=== PATIENT | female | born 1980 | race African-American/Black ===

== ENCOUNTER 2020-10-18 11:06 | Outpatient (REF) | payer OTHER, SELFPAY ==
[2020-10-18 11:42] LABS: MANUAL DIFF FLAG NO
[2020-10-18 11:48] LABS: Basophils Percent Auto 0.3 % (0-2); Eosinophils Percent Auto 0.4 % (0-4); Hematocrit 42.6 % (37-47); Imm Gran Abs Auto 0.02 X10*3/uL (0.00-0.03); Imm Gran Pct Auto 0.3 % (0.0-0.4); Lymphocytes Absolute Auto 1.8 X10*3/uL (1.2-4.9); Mean Corpuscular HGB Conc 32.9 g/dl (31.0-35.0); Mean Corpuscular Hemoglobin 29.7 pg (27.0-33.0); Mean Corpuscular Volume 90.4 fL (80-98); Mean Platelet Volume 9.8 fL (9.4-12.3); Monocytes Absolute Auto 0.4 X10*3/uL (0.1-1.2); Neutrophils Absolute Auto 4.5 X10*3/uL (2.0-8.3); Platelet Count 262 X10*3/uL (160-400); Red Blood Count 4.71 X10*6/uL (4.20-5.50); Red Cell Distribution Width 13.4 % (11.0-16.0); White Blood Count 6.8 X10*3/uL (4.8-10.8)
[2020-10-18 12:21] LABS: Alanine Aminotransferase 16 U/L (0-31); Albumin Level 4.3 g/dL (3.5-5.0); Alkaline Phosphatase 60 U/L (39-117); Aspartate Amino Transferase 15 U/L (5-31); Bilirubin Total 0.3 mg/dL (0.0-1.0); Blood Urea Nitrogen 17 mg/dL (9-16); Cholesterol 224 mg/dL; Estimated Glomerular Filt Rate > 60; Glucose Fasting 99 mg/dL (60-99); HDL Cholesterol 47 mg/dL; LDL Cholesterol Calculated 161 mg/dl; Total Protein 6.9 g/dL (6.5-8.0); Triglycerides 81 mg/dL
[2020-10-18 12:33] LABS: Anion Gap 13 (12-20); Carbon Dioxide 22 mmol/L (22-29); Chloride 107 mmol/L (96-108); Potassium 4.5 mmol/L (3.3-5.1); Sodium 137 mmol/L (135-145)
[2020-10-18 12:41] LABS: TSH reflex Free T4 0.43 uIU/mL (0.32-4.0)
[2020-10-19 04:27] LABS: SARS COV2 IgG Positive (Negative)
[2020-10-21 11:12] LABS: Vitamin D 25-OH, D2 <4 ng/mL; Vitamin D 25-OH, D3 47 ng/mL; Vitamin D 25-OH, Total 47 ng/mL (30-100)
== END 2020-10-18 11:07 | disposition home or self-care (01) ==
LOC: HO.LAB 11:06
PROVIDERS: PCP Internal Medicine; Visit Provider Internal Medicine
DX: R00.0 Tachycardia, unspecified (principal); E66.9 Obesity, unspecified; E78.5 Hyperlipidemia, unspecified; Z01.84 Encounter for antibody response examination; E04.9 Nontoxic goiter, unspecified; E55.9 Vitamin D deficiency, unspecified
CPT/HCPCS: 36415; 80053; 80061; 82306; 84443; 85025; 86769

== ENCOUNTER → 2021-01-05 15:14 | Outpatient (BNVA) | payer OTHER, SELFPAY | PROVIDERS: PCP Internal Medicine; Visit Provider Advanced Practice Midwife ==

== ENCOUNTER 2021-02-16 14:02 | Outpatient (REF) | payer OTHER, SELFPAY ==
--- NOTE | ~2021-02-16 | MM_ITS ---
EXAMINATION: MM SCREENING DIGITAL BREAST TOMOSYNTHESIS, BILATERAL CLINICAL INFORMATION: Screening. Asymptomatic. Age 40. No prior breast imaging. No known family history breast cancer. The lifetime risk of breast cancer based on the Tyrer-Cuzick Model is 9%. COMPARISON: None (current study represents initial baseline exam). TECHNIQUE: Digital breast tomosynthesis is performed in both the craniocaudal and mediolateral oblique views along with computer-aided detection (CAD). Synthesized 2D images are generated from the tomosynthesis. Additional right MLO view is provided. FINDINGS: There are scattered areas of fibroglandular density (ACR BI-RADS breast composition Category b). The left breast is unremarkable. There is no significant mass or architectural abnormality. Neither breast shows abnormal calcifications. The axilla and skin contours are unremarkable. Right breast has focal nodular asymmetry mid 3:00 position measuring under 1 cm. Margins are incompletely defined and there may be central lucency. Findings may represent superimposed fibroglandular density or perhaps an intramammary node. Patient will be recalled for additional imaging to fully characterize initial baseline appearance. MM/MM tomosynthesis screening BI IMPRESSION: 1. Right: Focal nodular asymmetric density mid 3:00 position. 2. Left: No mammographic evidence of malignancy. ASSESSMENT: BI-RADS 0: Incomplete - Need Additional Imaging Evaluation RECOMMENDATION: 1. Additional views of the right breast (3-D spot CC, 3-D spot LM). 2. Targeted ultrasound if warranted after review of the additional views. 3. Radiology department staff will contact the patient for additional imaging. This patient's information was entered into a reminder system with a target due date for their next mammogram.
== END 2021-02-16 14:03 | disposition home or self-care (01) ==
LOC: HO.MAMMO 14:02
PROVIDERS: Visit Provider Internal Medicine
DX: Z12.31 Encounter for screening mammogram for malignant neoplasm of breast (principal)
CPT/HCPCS: 77063; 77067

== ENCOUNTER 2021-02-22 08:19 | Outpatient (REF) | payer OTHER, SELFPAY ==
--- NOTE | ~2021-02-22 | MM_ITS ---
EXAMINATION: MM DIAGNOSTIC DIGITAL BREAST TOMOSYNTHESIS, RIGHT US DIAGNOSTIC ULTRASOUND BREAST, RIGHT CLINICAL INFORMATION: Recall from baseline exam for asymmetric focal nodular density mid 3:00 right breast. TC score 9%. COMPARISON: Mammography: 02/16/2021 (baseline) TECHNIQUE: Digital breast tomosynthesis is performed. 2D images are generated from the tomosynthesis. The following views are obtained: 3-D spot CC, 3-D spot LM. Ultrasound right breast is targeted to the inner quadrant. Grayscale imaging and color Doppler are performed without and with harmonics. FINDINGS: There are scattered areas of fibroglandular density (ACR BI-RADS breast composition Category b). The additional views demonstrate subtle grouped nodular asymmetry 3:00 position approximately 5 cm from nipple. Largest nodularity is 5 x 6 mm with a benign coarse peripheral calcification. Ultrasound demonstrates grouping of anechoic foci 3:00 position anterior depth with largest nodule measuring 5 x 6 mm with a specular echo at the margin corresponding to the coarse calcification on mammography. There is no increased or decreased through transmission of sound. No solid mass or architectural abnormality. No associated calcification. Results are discussed with the patient at time of visit. The finding medial right breast likely represents focal fibrocystic changes of unknown chronicity. Patient will be reassessed again in 6 months. MM/MM tomosynthesis added views R IMPRESSION: Focal grouped fibrocystic changes medial right breast. No increased or decreased through transmission of sound or associated color flow. ASSESSMENT: BI-RADS 3: Probably Benign RECOMMENDATION: Diagnostic right mammography and targeted right breast ultrasound in 6 months. This patient's information was entered into a reminder system with a target due date for their next mammogram.
== END 2021-02-22 08:20 | disposition home or self-care (01) ==
LOC: HO.MAMMO 08:19
PROVIDERS: PCP Internal Medicine; Visit Provider Internal Medicine
DX: N64.89 Other specified disorders of breast (principal); R00.0 Tachycardia, unspecified
CPT/HCPCS: 76642; 77061; 77065

== ENCOUNTER 2021-02-26 19:18 | Inpatient (IN) | payer OTHER, SELFPAY ==
--- NOTE | ~2021-02-26 | CT_ITS ---
EXAMINATION: CT ANGIOGRAM OF THE CHEST WITH AND WITHOUT CONTRAST (CT PULMONARY ANGIOGRAM FOR PE) CLINICAL INFORMATION: Reason for Exam positiv eddimer; Tachy; COMPARISON: Chest x-ray 02/26/2021 TECHNIQUE: Prior to contrast administration, noncontrast localization images were obtained. Subsequently, multidetector volumetric imaging was performed from the thoracic inlet to below the diaphragms following the administration of 65 mL Omnipaque 350 intravenous contrast. No contrast reaction reported Sagittal, coronal, and MIP oblique sagittal reformatted images were obtained on the CT workstation, uploaded to PACS, and reviewed. This CT examination was performed using dose optimization techniques as appropriate, variously including the following: *Automated exposure control *Adjustment of mA and/or kV according to patient size (this includes techniques or standardized protocols for targeted exams where dose is matched to indication/reason for exam; i.e. extremities or head) *Use of iterative reconstruction technique Total exam dose-length product 156 mGy-cm FINDINGS: QUALITY OF STUDY/CONTRAST BOLUS: Satisfactory. PULMONARY ARTERIES: No central or segmental pulmonary emboli. The main pulmonary artery appears dilated to approximately 3.4 cm. LUNG: There is nearly diffuse groundglass opacification of the lungs. Areas of interlobular septal thickening are noted. Bronchial wall thickening is also present. Overall findings favor pulmonary edema. PLEURA: Small right and trace pleural effusions. No pneumothorax. MEDIASTINUM: The visualized thyroid gland is enlarged. No discrete mediastinal lymphadenopathy is seen. There is cardiomegaly without significant pericardial effusion. The aorta is not adequately assessed given the phase of postcontrast imaging appears normal in caliber. CHEST WALL/AXILLA: No axillary or internal mammary lymphadenopathy. OSSEOUS STRUCTURES: Mild scattered endplate osteophytes are noted in the spine. UPPER ABDOMEN: There is reflux of contrast into the IVC and hepatic veins, suggesting elevated right heart pressures. CT/CT angio chest PE protocol IMPRESSION: 1. No pulmonary embolus identified. Dilated main pulmonary artery suggests pulmonary artery hypertension. There is also reflux of contrast into the IVC and hepatic veins which can be seen with elevated right heart pressures. 2. Pulmonary findings suspicious for edema. 3. Cardiomegaly. 4. Small right and trace pleural effusions. 5. Partially visualized enlarged thyroid gland. Correlation with prior follow-up thyroid ultrasound is recommended. VTE: negative
--- NOTE | ~2021-02-26 | XR_ITS ---
EXAMINATION: XR CHEST CLINICAL INFORMATION: Dyspnea. COMPARISON: Most recent chest radiograph dated 03/18/2016. TECHNIQUE: 2 views of the chest were obtained. FINDINGS: Patchy bibasilar airspace opacities, new when compared to the prior examination and concerning for multifocal pneumonia. No pleural effusion or pneumothorax. Stable cardiac mediastinal silhouette. No acute osseous abnormality. XR/XR chest 2V IMPRESSION: Patchy bilateral airspace opacities within the lower lobes, concerning for multifocal pneumonia.
--- NOTE | ~2021-02-26 | XR_ITS ---
EXAMINATION: XR CHEST CLINICAL INFORMATION: Evaluate CHF COMPARISON: Chest 02/26/2021 TECHNIQUE: 2 views of the chest were obtained. FINDINGS: There is cardiomegaly with increased pulmonary vascularity suggesting mild CHF but improved significantly from 02/26/2021. The lungs are hypoexpanded with mild haziness in the right lung base question pleural effusion versus thickening. No gross bony abnormality. XR/XR chest 2V IMPRESSION: Improved CHF on 02/26/2021 with some residual changes still present. There is mild haziness right lung base question effusion versus pleural thickening. No change in cardiomegaly.
[2021-02-26 19:33] VITALS: BP 115/83; PULSE 111; RESP 30; TEMP 36.7; O2SAT 98; BMI 31.6
[2021-02-26 20:41] LABS: MANUAL DIFF FLAG NO
[2021-02-26 20:43] LABS: Basophils Percent Auto 0.4 % (0-2); Eosinophils Absolute Auto 0.1 X10*3/uL (0.0-0.4); Eosinophils Percent Auto 0.6 % (0-4); Hematocrit 37.7 % (37-47); Hemoglobin 12.3 g/dl (12.0-16.0); Imm Gran Abs Auto 0.02 X10*3/uL (0.00-0.03); Imm Gran Pct Auto 0.2 % (0.0-0.4); Lymphocytes Absolute Auto 1.9 X10*3/uL (1.2-4.9); Mean Corpuscular HGB Conc 32.6 g/dl (31.0-35.0); Mean Corpuscular Hemoglobin 30.3 pg (27.0-33.0); Mean Corpuscular Volume 92.9 fL (80-98); Mean Platelet Volume 9.9 fL (9.4-12.3); Monocytes Absolute Auto 0.5 X10*3/uL (0.1-1.2); Monocytes Percent Auto 6.3 % (2-11); Neutrophils Absolute Auto 5.5 X10*3/uL (2.0-8.3); Neutrophils Percent Auto 68.5 % (45-73); Platelet Count 232 X10*3/uL (160-400); Red Blood Count 4.06 X10*6/uL (4.20-5.50); Red Cell Distribution Width 13.6 % (11.0-16.0); White Blood Count 8.1 X10*3/uL (4.8-10.8)
[2021-02-26 21:01] LABS: Alanine Aminotransferase 65 U/L (0-31); Albumin Level 3.9 g/dL (3.5-5.0); Alkaline Phosphatase 82 U/L (39-117); Anion Gap 12 (12-20); Aspartate Amino Transferase 56 U/L (5-31); Bilirubin Total 0.4 mg/dL (0.0-1.0); Blood Urea Nitrogen 14 mg/dL (9-16); Calcium 9.5 mg/dL (8.4-10.2); Carbon Dioxide 24 mmol/L (22-29); Chloride 109 mmol/L (96-108); Creatinine Clr Calc Pharmacy 75.1; Estimated Glomerular Filt Rate 59; Glucose Random 100 mg/dL (60-115); Lipase 19 U/L (8-78); Potassium 4.4 mmol/L (3.3-5.1); Sodium 141 mmol/L (135-145); Total Protein 6.3 g/dL (6.5-8.0)
--- NOTE | 2021-02-26 21:31 | ECG_ITS ---
Test Reason : SOB Blood Pressure : / mmHG Vent. Rate : 123 BPM Atrial Rate : 123 BPM P-R Int : 142 ms QRS Dur : 088 ms QT Int : 328 ms P-R-T Axes : 036 090 061 degrees QTc Int : 469 ms Sinus tachycardia Possible Left atrial enlargement Rightward axis Possible Anterior infarct , age undetermined Abnormal ECG No previous ECGs available Referred By: Yuridia Kwan Electronically Signed By:Kenny Dillard
--- NOTE | 2021-02-26 21:39 | ED_ITS ---
HPI - SOB/Dyspnea General Chief Complaint: Dyspnea Stated Complaint: SOB Time Seen by Provider: 02/26/21 22:55 Source: patient Mode of arrival: ambulatory Limitations: language barrier History of Present Illness HPI Narrative: 40-year-old female presents with 7 days of shortness of breath, cough, and fatigue. States that she can not catch her breath, of asthma. She is also reporting abdominal pain and back pain. She does nausea, vomiting, diarrhea, constipation, edema, headaches, dizziness, weakness, and any other concerning symptoms. MD elicited complaint: shortness of breath, chest pain and asthma attack Pertinent past history: asthma Onset (ago): day(s) (Seven) Context: recent illness Timing: constant Severity: severe Exacerbating factors: movement and coughing Relieving factors: nothing Known history of: asthma Associated symptoms: chest pain, pain with inspiration, cough, wheezing and abdominal pain Related Data Home oxygen amount: none Previous Rx's Medication Instructions Recorded inhalational spacing device #1 ea 02/08/21 tizanidine 4 mg tablet 4 mg PO TID PRN 30 Days #90 tab 02/08/21 Allergies Allergy/AdvReac Type Severity Reaction Status Date / Time No Known Allergies Allergy Verified 02/26/21 19:33 Review of Systems Review of Systems: Constitutional: No Fever, No Chills ENT/Mouth: No Hoarseness, No sore throat, No Rhinorrhea Eyes: No Redness, No Discharge, No Vision Changes Cardiovascular: Positive Chest Pain, positive SOB, positive Dyspnea on Exertion, No Edema Respiratory: positive Cough, No Sputum, positive Wheezing, Gastrointestinal: No Nausea, No Vomiting, No Diarrhea, positive abdominal Pain Genitourinary: No Dysuria, No Hematuria Musculoskeletal: No joint pain, No Myalgias Skin: No rash Neuro: No Weakness, No Numbness, No Headache Psych: No anxiety, depression Heme/Lymph: No Bruising, No Bleeding Endocrine: No Polyuria, No Polydipsia Yes all other systems are reviewed and are negative [facility] Past Medical History Attestation statement: The following information was validated with the patient. Source: old records reviewed Medical History (Updated 02/26/21 @ 22:56 by Yuridia Kwan NP) Dyspnea Fibromyalgia Goiter Obese Tachycardia Thyroid nodule Surgical History H/O abdominoplasty History of endometrial ablation Hx of tubal ligation S/P thyroid biopsy Family History Family History Father No problems noted. Mother No problems noted. Social History Social History Housing: House Alcohol intake: current Alcohol intake frequency: a few times a month Patient Tobacco Use Status: Never used Tobacco Use of substances other than those prescribed or required for medical reasons: No Advance Directives: No Advance Directives Information Provided: No Current occupational status: employed Gender identity: female Physical Exam Vital Signs: Vital Signs: Last Vital Signs Temp 97.7 F 02/27/21 00:18 Pulse 111 H 02/27/21 00:29 Resp 24 H 02/27/21 00:29 BP 119/80 02/27/21 00:29 Pulse Ox 96 02/27/21 00:29 Body Mass Index 31.6 Appearance: Alert. Oriented X3. Moderate distress. Eyes: Pupils equal, round and reactive to light. ENT: Pharynx normal. Moist mucous membranes Neck: Normal inspection. Neck supple. CVS: Tachycardic heart rate and rhythm. Pulses equal with brisk capillary refill. Respiratory: Moderate respiratory distress. Tachypneic. Lung sounds coarse bilaterally with poor air flow. Abdomen: Soft and nontender. Skin: Skin warm and dry. Normal skin color. Normal skin turgor. Extremities: No lower extremity edema. Moves all extremities against resistance. Neuro: No motor deficit. No sensory deficit. Cranial nerves 2-12 intact. Course Course Course Narrative: 40-year-old female presents with upper respiratory symptoms for approximately 7 days. X-ray was completed while she was in the emergency department waiting room, indicates bilateral patchy opacities consistent with suspected COVID-19 viral infection. Labs are pending. 9:00 p.m. x-ray that is consistent with COVID-19 virus with bilateral patchy infiltrates, however COVID testing is negative. This is highly suspicious for a viral illness, patient does have history of tachycardia, elevated heart rate and shortness of breath likely due to a viral symptoms. this is not sepsis. 12:05 a.m. discussion with hospitalist, could possibly be atypical pneumonia as procalcitonin is negative. LDH and CRP are elevated, no elevated white count, I still do not believe that this is a bacterial sepsis. MDM - SOB/Dyspnea Differential Diagnosis Differential diagnosis: Likely acute exacerbation of chronic obstructive airways disease, pneumonia and asthma with exacerbation Medical Records Attestation: I reviewed the patient's medical records. Lab Data Attestation: I reviewed the patient's lab results. Result diagrams: 02/26/21 20:37 02/26/21 20:37 Labs: Lab Results 02/26/21 02/26/21 02/26/21 Range/Units 20:37 20:37 22:09 WBC 8.1 (4.8-10.8) X10*3/uL RBC 4.06 L (4.20-5.50) X10*6/uL Hgb 12.3 (12.0-16.0) g/dl Hct 37.7 (37-47) % MCV 92.9 (80-98) fL MCH 30.3 (27.0-33.0) pg MCHC 32.6 (31.0-35.0) g/dl RDW 13.6 (11.0-16.0) % Plt Count 232 (160-400) X10*3/uL MPV 9.9 (9.4-12.3) fL Immature Gran % (Auto) 0.2 (0.0-0.4) % Neut % (Auto) 68.5 (45-73) % Lymph % (Auto) 24.0 (20-40) % [place] % (Auto) 6.3 (2-11) % Eos % (Auto) 0.6 (0-4) % Baso % (Auto) 0.4 (0-2) % Lymph # (Auto) 1.9 (1.2-4.9) X10*3/uL [place] # (Auto) 0.5 (0.1-1.2) X10*3/uL Eos # (Auto) 0.1 (0.0-0.4) X10*3/uL Baso # (Auto) 0.0 (0.0-0.2) X10*3/uL Abs Immat Gran (auto) 0.02 (0.00-0.03) X10*3/uL Absolute Neuts (auto) 5.5 (2.0-8.3) X10*3/uL Absolute Nucleated RBC 0.000 (0.0-0.012) X10*3/uL Nucleated RBC % (auto) 0.0 (0.0-0.2) /100WBC Sodium 141 (135-145) mmol/L Potassium 4.4 (3.3-5.1) mmol/L Chloride 109 H (96-108) mmol/L Carbon Dioxide 24 (22-29) mmol/L Anion Gap 12 (12-20) BUN 14 (9-16) mg/dL Creatinine 1.04 (0.5-1.4) mg/dL Estim Creat Clear Calc 75.1 Estimated GFR 59 Random Glucose 100 (60-115) mg/dL Lactic Acid (0.5-2.0) mmol/L Calcium 9.5 (8.4-10.2) mg/dL Ferritin (10-250) ng/mL Total Bilirubin 0.4 (0.0-1.0) mg/dL AST 56 H (5-31) U/L ALT 65 H (0-31) U/L Alkaline Phosphatase 82 D (39-117) U/L Lactate Dehydrogenase (122-220) U/L Total Creatine Kinase (26-140) U/L Troponin I High Sens (<3.5-17.0) ng/L C-Reactive Protein (< or = 0.50) mg/dL Total Protein 6.3 L (6.5-8.0) g/dL Albumin 3.9 (3.5-5.0) g/dL Lipase 19 (8-78) U/L Procalcitonin ng/mL Coronavirus (PCR) NEGATIVE (Negative) Influenza Type A (PCR) NEGATIVE (Negative) Influenza Type B (PCR) NEGATIVE (Negative) RSV RNA Qual (PCR) NEGATIVE (Negative) 02/26/21 02/26/21 02/26/21 Range/Units 22:09 22:09 22:09 WBC (4.8-10.8) X10*3/uL RBC (4.20-5.50) X10*6/uL Hgb (12.0-16.0) g/dl Hct (37-47) % MCV (80-98) fL MCH (27.0-33.0) pg MCHC (31.0-35.0) g/dl RDW (11.0-16.0) % Plt Count (160-400) X10*3/uL MPV (9.4-12.3) fL Immature Gran % (Auto) (0.0-0.4) % Neut % (Auto) (45-73) % Lymph % (Auto) (20-40) % [place] % (Auto) (2-11) % Eos % (Auto) (0-4) % Baso % (Auto) (0-2) % Lymph # (Auto) (1.2-4.9) X10*3/uL [place] # (Auto) (0.1-1.2) X10*3/uL Eos # (Auto) (0.0-0.4) X10*3/uL Baso # (Auto) (0.0-0.2) X10*3/uL Abs Immat Gran (auto) (0.00-0.03) X10*3/uL Absolute Neuts (auto) (2.0-8.3) X10*3/uL Absolute Nucleated RBC (0.0-0.012) X10*3/uL Nucleated RBC % (auto) (0.0-0.2) /100WBC Sodium (135-145) mmol/L Potassium (3.3-5.1) mmol/L Chloride (96-108) mmol/L Carbon Dioxide (22-29) mmol/L Anion Gap (12-20) BUN (9-16) mg/dL Creatinine (0.5-1.4) mg/dL Estim Creat Clear Calc Estimated GFR Random Glucose (60-115) mg/dL Lactic Acid 1.5 (0.5-2.0) mmol/L Calcium (8.4-10.2) mg/dL Ferritin 112 (10-250) ng/mL Total Bilirubin (0.0-1.0) mg/dL AST (5-31) U/L ALT (0-31) U/L Alkaline Phosphatase (39-117) U/L Lactate Dehydrogenase 229 H (122-220) U/L Total Creatine Kinase 52 (26-140) U/L Troponin I High Sens (<3.5-17.0) ng/L C-Reactive Protein 0.70 H (< or = 0.50) mg/dL Total Protein (6.5-8.0) g/dL Albumin (3.5-5.0) g/dL Lipase (8-78) U/L Procalcitonin 0.04 ng/mL Coronavirus (PCR) (Negative) Influenza Type A (PCR) (Negative) Influenza Type B (PCR) (Negative) RSV RNA Qual (PCR) (Negative) 02/26/21 Range/Units 22:09 WBC (4.8-10.8) X10*3/uL RBC (4.20-5.50) X10*6/uL Hgb (12.0-16.0) g/dl Hct (37-47) % MCV (80-98) fL MCH (27.0-33.0) pg MCHC (31.0-35.0) g/dl RDW (11.0-16.0) % Plt Count (160-400) X10*3/uL MPV (9.4-12.3) fL Immature Gran % (Auto) (0.0-0.4) % Neut % (Auto) (45-73) % Lymph % (Auto) (20-40) % [place] % (Auto) (2-11) % Eos % (Auto) (0-4) % Baso % (Auto) (0-2) % Lymph # (Auto) (1.2-4.9) X10*3/uL [place] # (Auto) (0.1-1.2) X10*3/uL Eos # (Auto) (0.0-0.4) X10*3/uL Baso # (Auto) (0.0-0.2) X10*3/uL Abs Immat Gran (auto) (0.00-0.03) X10*3/uL Absolute Neuts (auto) (2.0-8.3) X10*3/uL Absolute Nucleated RBC (0.0-0.012) X10*3/uL Nucleated RBC % (auto) (0.0-0.2) /100WBC Sodium (135-145) mmol/L Potassium (3.3-5.1) mmol/L Chloride (96-108) mmol/L Carbon Dioxide (22-29) mmol/L Anion Gap (12-20) BUN (9-16) mg/dL Creatinine (0.5-1.4) mg/dL Estim Creat Clear Calc Estimated GFR Random Glucose (60-115) mg/dL Lactic Acid (0.5-2.0) mmol/L Calcium (8.4-10.2) mg/dL Ferritin (10-250) ng/mL Total Bilirubin (0.0-1.0) mg/dL AST (5-31) U/L ALT (0-31) U/L Alkaline Phosphatase (39-117) U/L Lactate Dehydrogenase (122-220) U/L Total Creatine Kinase (26-140) U/L Troponin I High Sens 20.3 H* (<3.5-17.0) ng/L C-Reactive Protein (< or = 0.50) mg/dL Total Protein (6.5-8.0) g/dL Albumin (3.5-5.0) g/dL Lipase (8-78) U/L Procalcitonin ng/mL Coronavirus (PCR) (Negative) Influenza Type A (PCR) (Negative) Influenza Type B (PCR) (Negative) RSV RNA Qual (PCR) (Negative) Imaging Data Chest x-ray: Attestation: I personally reviewed and interpreted this imaging study as follows: Radiologist's impression: EXAMINATION: XR CHEST CLINICAL INFORMATION: Dyspnea. COMPARISON: Most recent chest radiograph dated 03/18/2016. TECHNIQUE: 2 views of the chest were obtained. FINDINGS: Patchy bibasilar airspace opacities, new when compared to the prior examination and concerning for multifocal pneumonia. No pleural effusion or pneumothorax. Stable cardiac mediastinal silhouette. No acute osseous abnormality. XR/XR chest 2V IMPRESSION: Patchy bilateral airspace opacities within the lower lobes, concerning for multifocal pneumonia. ECG Data Attestation: I personally reviewed and interpreted this ECG as follows: ECG interpretation date: 02/26/21 ECG interpretation time: 21:57 Interpretation: Vent. rate 123 BPM PA interval 142 ms QRS duration 88 ms QT/QTc 328/469 ms P-R-T axes 36 90 61 Sinus tachycardia Possible Left atrial enlargement Rightward axis Possible Anterior infarct , age undetermined Abnormal ECG No previous ECGs available Critical Care Time Critical Care Time Critical Care Time: Yes Total Critical Care Time: 45 Attestation: I have personally provided critical care time exclusive of time spent on separately billable procedures. Time includes review of laboratory data, radiology results, discussion with consultants, and monitoring for potential decompensation. Interventions were performed as documented. Discharge Plan Discharge Clinical Impression: Hypoxia Pneumonia Qualifiers: Pneumonia type: due to unspecified organism Laterality: bilateral Lung location: unspecified part of lung Qualified Code(s): J18.9 - Pneumonia, unspecified organism Patient Disposition: Admitted As Inpatient
[2021-02-26 21:49] VITALS: BP 110/79; PULSE 119; RESP 28; TEMP 36.7; O2SAT 97
[2021-02-26] MEDS: dexAMETHasone sod phosphate 4 MG/ML VIAL 6 MG IVPUSH (22:14)
[2021-02-26 22:45] LABS: Lactic Acid 1.5 mmol/L (0.5-2.0)
[2021-02-26 22:49] LABS: Lactate Dehydrogenase 229 U/L (122-220)
[2021-02-26 22:57] VITALS: BP 124/93; PULSE 114; RESP 34; O2SAT 96
[2021-02-26 23:00] LABS: Troponin-I High Sensitivity 20.3 ng/L (<3.5-17.0)
[2021-02-26 23:08] LABS: Procalcitonin 0.04 ng/mL
[2021-02-26 23:09] LABS: Ferritin 112 ng/mL (10-250)
[2021-02-26 23:11] LABS: Influenza A PCR NEGATIVE (Negative); Influenza B PCR NEGATIVE (Negative); Resp Syncy Virus RNA Qual PCR NEGATIVE (Negative); SARS COV2 PCR INHOUSE NEGATIVE (Negative)
[2021-02-27] VITALS (7 sets, daily range): BP systolic 75–127; BP diastolic 63–88; PULSE 105–124; RESP 15–33; TEMP 36.5–37; O2SAT 92–98; BMI 31.8
[2021-02-27] MEDS: cefTRIAXone sodium 1 GM in 0.9 % Sodium Chloride 50 ML IV ×2 (00:19→22:18)
[2021-02-27] MEDS: Azithromycin 500 MG TABLET PO (00:19)
[2021-02-27 00:39] LABS: Glucose Urine UA NEG (NEG); Leukocyte Esterase Urine NEG (NEG); Nitrite Urine NEG (NEG); Specific Gravity - Urine >= 1.030 (1.005-1.025); Urine Blood 2+ (NEG); Urine Ketones NEG (NEG); Urine Protein TRACE MG/DL (NEG-TRACE)
[2021-02-27 00:41] LABS: Appearance Urine CLEAR; Color Urine DARK YELLOW
[2021-02-27] MEDS: Heparin Sodium,Porcine 5,000 UNIT/ML VIAL 5000 UNIT SUBCUT ×2 (00:57→13:10)
[2021-02-27 01:05] LABS: Bacteria Urine TRACE /LPF; RBC Urine 0-2 /HPF (0); Squamous Epithelial Cell Urine 3+ /LPF; WBC Urine 0-2 /HPF (0-4)
[2021-02-27 01:06] LABS: UPreg QC Valid YES; Urine Pregnancy NEGATIVE (NEGATIVE)
[2021-02-27 01:06] LABS: Mucus Urine 2+ /LPF
[2021-02-27 01:30] LABS: Troponin-I High Sensitivity 21.3 ng/L (<3.5-17.0)
--- NOTE | 2021-02-27 03:47 | PC.NURSE ---
Pt rang in, this RN to bedside, pt requesting a pain patch for her upper back discomfort and requesting something for sleep. This rn TT Lyndsey to request both
[2021-02-27] MEDS: diphenhydrAMINE HCL 50 MG/ML VIAL 25 MG IVPUSH (04:28)
[2021-02-27] MEDS: Lidocaine 4 % Patch ADH..PATCH 1 PATCH TRANSDERMA (05:08)
--- NOTE | 2021-02-27 05:08 | PC.NURSE ---
This RN notes lido patch due at 0900. This RN TT sohan and asked if med patch can be applied at this time. Per Sohan, yes. Pt medicated as documented in MAR
[2021-02-27 06:35] LABS: Hematocrit 39.8 % (37-47); Hemoglobin 12.8 g/dl (12.0-16.0); Imm Gran Abs Auto 0.02 X10*3/uL (0.00-0.03); Imm Gran Pct Auto 0.3 % (0.0-0.4); Lymphocytes Absolute Auto 0.5 X10*3/uL (1.2-4.9); Lymphocytes Percent Auto 7.8 % (20-40); MANUAL DIFF FLAG SCAN; Mean Corpuscular HGB Conc 32.2 g/dl (31.0-35.0); Mean Corpuscular Hemoglobin 29.3 pg (27.0-33.0); Mean Corpuscular Volume 91.1 fL (80-98); Mean Platelet Volume 10.2 fL (9.4-12.3); Monocytes Absolute Auto 0.1 X10*3/uL (0.1-1.2); Monocytes Percent Auto 1.2 % (2-11); Neutrophils Absolute Auto 5.9 X10*3/uL (2.0-8.3); Neutrophils Percent Auto 90.7 % (45-73); Platelet Count 257 X10*3/uL (160-400); Red Blood Count 4.37 X10*6/uL (4.20-5.50); Red Cell Distribution Width 13.4 % (11.0-16.0); SCAN SMEAR FLAG 1; White Blood Count 6.5 X10*3/uL (4.8-10.8)
--- NOTE | 2021-02-27 06:56 | P.HPHOSP_ITS ---
History of Present Illness Date of Service: 02/27/21 Chief Complaint: Shortness of breath 40-year-old female with no significant past medical history who presents to the hospital with complaints of shortness of breath this been going on for 7-10 days. She has some cough with no sputum production, has chills with no fever, no recent sick contacts or travel. She denies any headache or change in vision, no abdominal pain nausea or vomiting, no diarrhea constipation, no urinary symptoms. Denies any history of COPD/asthma. Reports that she got the the 1st dose of pfeizer COVID vaccine 3 days ago. On arrival to the ED patient vitals significant for temp of 98.1?, heart rate of 119, respiratory rate of 28, blood pressure 110/79, satting 97% on room air Labs are significant for normal WBC of 8.1, AST of 56, ALT of 65, troponin of 20.3 that increased to 21.3, UA negative. COVID-19 PCR negative, procalcitonin of 0.04 Chest x-ray shows patchy bilateral airspace opacities within the lower lobes concerning for multi focal pneumonia Patient will be admitted for further management Review of Systems Review of Systems: Yes all other systems are reviewed and are negative [facility] Medical History Dyspnea Fibromyalgia Goiter Obese Tachycardia Thyroid nodule Family History Father No problems noted. Mother No problems noted. Surgical History H/O abdominoplasty History of endometrial ablation Hx of tubal ligation S/P thyroid biopsy Social History Housing: House Alcohol intake: current Alcohol intake frequency: a few times a month Patient Tobacco Use Status: Never used Tobacco Use of substances other than those prescribed or required for medical reasons: No Advance Directives: No Advance Directives Information Provided: No Current occupational status: employed Gender identity: female Meds Allergies Allergy/AdvReac Type Severity Reaction Status Date / Time No Known Allergies Allergy Verified 02/26/21 19:33 Active Medications: Current Medications Generic Name Dose Route Start Last Admin Trade Name Freq PRN Reason Stop Dose Admin Acetaminophen 650 mg 02/27/21 00:28 Acetaminophen 325 Mg Tablet PO Q6H PRN Pain, Mild (Pain Scale 1-3) Dexamethasone Sodium Phosphate 6 mg 02/27/21 09:00 Dexamethasone Sod Phosphate 4 Mg/Ml Vial IVPUSH DAILY [facility] Docusate Sodium 100 mg 02/27/21 00:28 Docusate Sodium 100 Mg Capsule PO DAILY PRN Constipation Heparin Sodium (Porcine) 5,000 unit 02/27/21 00:28 02/27/21 00:57 Heparin Sodium,Porcine 5,000 Unit/Ml Vial SUBCUT 5,000 unit Q12H [facility] Administration Ceftriaxone Sodium 1 gm/ 50 mls @ 100 mls/hr 02/27/21 07:00 Sodium Chloride IV Q24H ARMANDO Azithromycin 500 mg/ Sodium 250 mls @ 125 mls/hr 02/27/21 07:00 Chloride IV Q24H [facility] Lidocaine 1 patch 02/27/21 09:00 02/27/21 05:08 Lidocaine 4 % Patch Adh..Patch TRANSDERMA 1 patch DAILY [facility] Administration Protocol Ondansetron HCl 4 mg 02/27/21 00:28 Ondansetron Hcl 4 Mg/2 Ml Vial IVPUSH Q8H PRN Nausea and Vomiting Sodium Chloride 3 ml 02/27/21 00:28 02/27/21 00:30 0.9 % Sodium Chloride Flush 3 Ml Syringe IVFLUSH Not Given QSHIFT [facility] Tizanidine HCl 4 mg 02/27/21 00:28 Tizanidine Hcl 4 Mg Tablet PO TID PRN muscle spasticity Physical Exam Vital Signs and Narrative: Vital Signs: Last Vital Signs Temp 97.7 F 02/27/21 04:26 Pulse 105 H 02/27/21 04:26 Resp 15 02/27/21 04:26 BP 118/88 02/27/21 04:26 Pulse Ox 97 02/27/21 04:26 Body Mass Index 31.6 Const: General: cooperative and no acute distress Orientation/ consciousness: patient oriented x3 Eyes: General: appearance normal, both eyes and all related structures Pupils: Equal, round and reactive pupils present Resp: Other: Patient tachypneic, sitting up in bed, using some accessory muscles Cardio: Rate: regular rate Rhythm: regular rhythm GI: Palpation (GI): Soft to palpation Auscultation: normal bowel sounds Skin: General skin exam: no rashes or lesions noted Neuro: General: patient oriented x3 Cranial nerves: Yes Equal, round and reactive pupils present Cognition (Neuro): normal cognition Extrem: General: Yes normal to inspection and Yes no pedal edema Results Labs CBC and Chem 7: 02/26/21 20:37 02/26/21 20:37 Labs: Laboratory Results - last 24 hr 02/26/21 02/26/21 02/26/21 20:37 20:37 22:09 WBC 8.1 RBC 4.06 L Hgb 12.3 Hct 37.7 MCV 92.9 MCH 30.3 MCHC 32.6 RDW 13.6 Plt Count 232 MPV 9.9 Immature Gran % (Auto) 0.2 Neut % (Auto) 68.5 Lymph % (Auto) 24.0 [place] % (Auto) 6.3 Eos % (Auto) 0.6 Baso % (Auto) 0.4 Lymph # (Auto) 1.9 [place] # (Auto) 0.5 Eos # (Auto) 0.1 Baso # (Auto) 0.0 Abs Immat Gran (auto) 0.02 Absolute Neuts (auto) 5.5 Absolute Nucleated RBC 0.000 Nucleated RBC % (auto) 0.0 Sodium 141 Potassium 4.4 Chloride 109 H Carbon Dioxide 24 Anion Gap 12 BUN 14 Creatinine 1.04 Estim Creat Clear Calc 75.1 Estimated GFR 59 Random Glucose 100 Lactic Acid Calcium 9.5 Ferritin Total Bilirubin 0.4 AST 56 H ALT 65 H Alkaline Phosphatase 82 D Lactate Dehydrogenase Total Creatine Kinase Troponin I High Sens C-Reactive Protein Total Protein 6.3 L Albumin 3.9 Lipase 19 Procalcitonin Urine Color Urine Appearance Urine pH Ur Specific [place] Urine Protein Urine Glucose (UA) Urine Ketones Urine Blood Urine Nitrite Ur Leukocyte Esterase Urine RBC Urine WBC Ur Squamous Epith Cells Urine Bacteria Urine Mucus Urine Test Coronavirus (PCR) NEGATIVE Influenza Type A (PCR) NEGATIVE Influenza Type B (PCR) NEGATIVE RSV RNA Qual (PCR) NEGATIVE 02/26/21 02/26/21 02/26/21 22:09 22:09 22:09 WBC RBC Hgb Hct MCV MCH MCHC RDW Plt Count MPV Immature Gran % (Auto) Neut % (Auto) Lymph % (Auto) [place] % (Auto) Eos % (Auto) Baso % (Auto) Lymph # (Auto) [place] # (Auto) Eos # (Auto) Baso # (Auto) Abs Immat Gran (auto) Absolute Neuts (auto) Absolute Nucleated RBC Nucleated RBC % (auto) Sodium Potassium Chloride Carbon Dioxide Anion Gap BUN Creatinine Estim Creat Clear Calc Estimated GFR Random Glucose Lactic Acid 1.5 Calcium Ferritin 112 Total Bilirubin AST ALT Alkaline Phosphatase Lactate Dehydrogenase 229 H Total Creatine Kinase 52 Troponin I High Sens C-Reactive Protein 0.70 H Total Protein Albumin Lipase Procalcitonin 0.04 Urine Color Urine Appearance Urine pH Ur Specific [place] Urine Protein Urine Glucose (UA) Urine Ketones Urine Blood Urine Nitrite Ur Leukocyte Esterase Urine RBC Urine WBC Ur Squamous Epith Cells Urine Bacteria Urine Mucus Urine Test Coronavirus (PCR) Influenza Type A (PCR) Influenza Type B (PCR) RSV RNA Qual (PCR) 02/26/21 02/27/21 02/27/21 22:09 00:19 00:20 WBC RBC Hgb Hct MCV MCH MCHC RDW Plt Count MPV Immature Gran % (Auto) Neut % (Auto) Lymph % (Auto) [place] % (Auto) Eos % (Auto) Baso % (Auto) Lymph # (Auto) [place] # (Auto) Eos # (Auto) Baso # (Auto) Abs Immat Gran (auto) Absolute Neuts (auto) Absolute Nucleated RBC Nucleated RBC % (auto) Sodium Potassium Chloride Carbon Dioxide Anion Gap BUN Creatinine Estim Creat Clear Calc Estimated GFR Random Glucose Lactic Acid Calcium Ferritin Total Bilirubin AST ALT Alkaline Phosphatase Lactate Dehydrogenase Total Creatine Kinase Troponin I High Sens 20.3 H* C-Reactive Protein Total Protein Albumin Lipase Procalcitonin Urine Color DARK YELLOW Urine Appearance CLEAR Urine pH 6.0 Ur Specific [place] >= 1.030 H Urine Protein TRACE Urine Glucose (UA) NEG Urine Ketones NEG Urine Blood 2+ H Urine Nitrite NEG Ur Leukocyte Esterase NEG Urine RBC 0-2 Urine WBC 0-2 Ur Squamous Epith Cells 3+ Urine Bacteria TRACE Urine Mucus 2+ Urine Test NEGATIVE Coronavirus (PCR) Influenza Type A (PCR) Influenza Type B (PCR) RSV RNA Qual (PCR) 02/27/21 00:30 WBC RBC Hgb Hct MCV MCH MCHC RDW Plt Count MPV Immature Gran % (Auto) Neut % (Auto) Lymph % (Auto) [place] % (Auto) Eos % (Auto) Baso % (Auto) Lymph # (Auto) [place] # (Auto) Eos # (Auto) Baso # (Auto) Abs Immat Gran (auto) Absolute Neuts (auto) Absolute Nucleated RBC Nucleated RBC % (auto) Sodium Potassium Chloride Carbon Dioxide Anion Gap BUN Creatinine Estim Creat Clear Calc Estimated GFR Random Glucose Lactic Acid Calcium Ferritin Total Bilirubin AST ALT Alkaline Phosphatase Lactate Dehydrogenase Total Creatine Kinase Troponin I High Sens 21.3 H* C-Reactive Protein Total Protein Albumin Lipase Procalcitonin Urine Color Urine Appearance Urine pH Ur Specific [place] Urine Protein Urine Glucose (UA) Urine Ketones Urine Blood Urine Nitrite Ur Leukocyte Esterase Urine RBC Urine WBC Ur Squamous Epith Cells Urine Bacteria Urine Mucus Urine Test Coronavirus (PCR) Influenza Type A (PCR) Influenza Type B (PCR) RSV RNA Qual (PCR) Imaging Radiologist's Impressions: Impressions Chest X-Ray 02/26/21 19:55 IMPRESSION: Patchy bilateral airspace opacities within the lower lobes, concerning for multifocal pneumonia. Assessment and Plan (1) Multifocal pneumonia: Status: Acute (2) Dyspnea: Status: Acute (3) Elevated LFTs: Status: Acute This is a 40-year-old female with no significant past medical history presents to the hospital with complaints of shortness of breath found to have multifocal pneumonia # multifocal pneumonia - although COVID-19 PCR negative, patient has image findings of for all pneumonia concerning for possible COVID-19 infection - received MRN a vaccine 1st dose 3 days prior but her symptoms started a week prior to that - patient not hypoxic but placed on O2 by ED PA for comfort as patient had tachypnea and appears in respiratory distress - received dexamethasone - time will start dexamethasone as patient is not hypoxic - will consult Infectious Disease - will start her on IV fluids given multifocal pneumonia for possible bacterial infection - follow cultures # elevated LFTs - denies use of alcohol - will check hepatitis - follow LFTs prophylaxis: Heparin subQ Quality Stroke Does the patient have a stroke diagnosis?: No VTE Prior VTE?: No VTE Risk Level:: Medical - moderate - high VTE Device Contraindication: Treatment Not Indicated VTE Drug Contraindication: N/A - Med Ordered
[2021-02-27 07:06] LABS: Anion Gap 13 (12-20); Blood Urea Nitrogen 12 mg/dL (9-16); Calcium 9.3 mg/dL (8.4-10.2); Carbon Dioxide 21 mmol/L (22-29); Chloride 110 mmol/L (96-108); Creatinine Clr Calc Pharmacy 88.7; Estimated Glomerular Filt Rate > 60; Glucose Random 139 mg/dL (60-115); Potassium 4.9 mmol/L (3.3-5.1); Sodium 139 mmol/L (135-145)
[2021-02-27] MEDS: Albuterol Sulfate 90 MCG 8 GM INHALER 1 PUFF INHALE (08:21)
--- NOTE | 2021-02-27 08:21 | PC.NURSE ---
pt reports feeling SOB, requesting tx, order for prn albuterol inhaler obtained, pt self admin. Ls cta, slightly dium at bases, no adventitious LS auscultated.
[2021-02-27 08:58] LABS: SLIDE REVIEW VERIFIED
[2021-02-27] MEDS: 0.9 % Sodium Chloride Flush 3 ML SYRINGE IVFLUSH ×3 (09:05→22:35)
[2021-02-27 09:28] LABS: Adenovirus PCR Not Detected (Not Detect.); Bordetella parapertussis PCR Not Detected (Not Detect.); Bordetella pertussis PCR Not Detected (Not Detect.); Chlamydia pneumoniae PCR Not Detected (Not Detect.); Coronavirus 229E PCR Not Detected (Not Detect.); Coronavirus HKU1 PCR Not Detected (Not Detect.); Coronavirus NL63 PCR Not Detected (Not Detect.); Coronavirus OC43 PCR Not Detected (Not Detect.); Human metapneumovirus PCR Not Detected (Not Detect.); Influenza A PCR Not Detected (Not Detect.); Influenza B PCR Not Detected (Not Detect.); Mycoplasma pneumoniae PCR Not Detected (Not Detect.); Parainfluenza 1 PCR Not Detected (Not Detect.); Parainfluenza 2 PCR Not Detected (Not Detect.); Parainfluenza 3 PCR Not Detected (Not Detect.); Parainfluenza 4 PCR Not Detected (Not Detect.); RSV PCR Not Detected (Not Detect.); Rhino/Enterovirus PCR Not Detected (Not Detect.); SARS-CoV-2 PCR Not Detected (Not Detect.)
--- NOTE | 2021-02-27 09:30 | P.PNIM_ITS ---
Subjective Subjective Date of Service: 02/28/21 Interval History: pneumonia , elevated lfts' Review of Systems sob seems improving , denies any chest pain or abdominal pain Has dry cough but no phlegm Denies any nausea or vomiting or any urinary complaints Physical Exam Vital Signs: Vital Signs: Last Vital Signs Temp 97.7 F 02/27/21 04:26 Pulse 105 H 02/27/21 04:26 Resp 15 02/27/21 04:26 BP 118/88 02/27/21 04:26 Pulse Ox 97 02/27/21 04:26 Body Mass Index 31.6 Physical exam: heent: eyes: anicteric , no discharge Cvs: rrr, [id number] , no murmur res: air entry improving , slightly diminshed at bases , no rales or wheezing, some rhonchii abd: no rebound or guarding ,nt, bs present. ext pulses present , no cyanosis neuro: axo3 , nonfocal. Objective Data Current Medications Generic Name Dose Route Start Last Admin Trade Name Freq PRN Reason Stop Dose Admin Acetaminophen 650 mg 02/27/21 00:28 Acetaminophen 325 Mg Tablet PO Q6H PRN Pain, Mild (Pain Scale 1-3) Albuterol Sulfate 1 puff 02/27/21 07:51 02/27/21 08:21 Albuterol Sulfate 90 Mcg 8 Gm Inhaler INHALE 1 puff Q4H PRN Administration sob Docusate Sodium 100 mg 02/27/21 00:28 Docusate Sodium 100 Mg Capsule PO DAILY PRN Constipation Heparin Sodium (Porcine) 5,000 unit 02/27/21 00:28 02/27/21 00:57 Heparin Sodium,Porcine 5,000 Unit/Ml Vial SUBCUT 5,000 unit Q12H ARMANDO Administration Ceftriaxone Sodium 1 gm/ 50 mls @ 100 mls/hr 02/27/21 22:00 Sodium Chloride IV Q24H [facility]ANDO Azithromycin 500 mg/ Sodium 250 mls @ 125 mls/hr 02/27/21 21:00 Chloride IV Q24H [facility]ANDO Lidocaine 1 patch 02/27/21 09:00 02/27/21 05:08 Lidocaine 4 % Patch Adh..Patch TRANSDERMA 1 patch DAILY [facility]O Administration Protocol Ondansetron HCl 4 mg 02/27/21 00:28 Ondansetron Hcl 4 Mg/2 Ml Vial IVPUSH Q8H PRN Nausea and Vomiting Sodium Chloride 3 ml 02/27/21 00:28 02/27/21 09:05 0.9 % Sodium Chloride Flush 3 Ml Syringe IVFLUSH 3 ml QSHIFT [facility]O Administration Tizanidine HCl 4 mg 02/27/21 00:28 Tizanidine Hcl 4 Mg Tablet PO TID PRN muscle spasticity Labs CBC & Chem 7: 02/27/21 06:21 02/27/21 06:21 Labs: Laboratory Results - last 24 hr 02/26/21 02/26/21 02/26/21 20:37 20:37 22:09 WBC 8.1 RBC 4.06 L Hgb 12.3 Hct 37.7 MCV 92.9 MCH 30.3 MCHC 32.6 RDW 13.6 Plt Count 232 MPV 9.9 Immature Gran % (Auto) 0.2 Neut % (Auto) 68.5 Lymph % (Auto) 24.0 [place] % (Auto) 6.3 Eos % (Auto) 0.6 Baso % (Auto) 0.4 Lymph # (Auto) 1.9 [place] # (Auto) 0.5 Eos # (Auto) 0.1 Baso # (Auto) 0.0 Abs Immat Gran (auto) 0.02 Absolute Neuts (auto) 5.5 Absolute Nucleated RBC 0.000 Nucleated RBC % (auto) 0.0 Smear Tech's Comments Sodium 141 Potassium 4.4 Chloride 109 H Carbon Dioxide 24 Anion Gap 12 BUN 14 Creatinine 1.04 Estim Creat Clear Calc 75.1 Estimated GFR 59 Random Glucose 100 Lactic Acid Calcium 9.5 Ferritin Total Bilirubin 0.4 AST 56 H ALT 65 H Alkaline Phosphatase 82 D Lactate Dehydrogenase Total Creatine Kinase Troponin I High Sens C-Reactive Protein Total Protein 6.3 L Albumin 3.9 Lipase 19 Procalcitonin Urine Color Urine Appearance Urine pH Ur Specific [place] Urine Protein Urine Glucose (UA) Urine Ketones Urine Blood Urine Nitrite Ur Leukocyte Esterase Urine RBC Urine WBC Ur Squamous Epith Cells Urine Bacteria Urine Mucus Urine Test Coronavirus (PCR) NEGATIVE Influenza Type A (PCR) NEGATIVE Influenza Type B (PCR) NEGATIVE RSV RNA Qual (PCR) NEGATIVE 02/26/21 02/26/21 02/26/21 22:09 22:09 22:09 WBC RBC Hgb Hct MCV MCH MCHC RDW Plt Count MPV Immature Gran % (Auto) Neut % (Auto) Lymph % (Auto) [place] % (Auto) Eos % (Auto) Baso % (Auto) Lymph # (Auto) [place] # (Auto) Eos # (Auto) Baso # (Auto) Abs Immat Gran (auto) Absolute Neuts (auto) Absolute Nucleated RBC Nucleated RBC % (auto) Smear Tech's Comments Sodium Potassium Chloride Carbon Dioxide Anion Gap BUN Creatinine Estim Creat Clear Calc Estimated GFR Random Glucose Lactic Acid 1.5 Calcium Ferritin 112 Total Bilirubin AST ALT Alkaline Phosphatase Lactate Dehydrogenase 229 H Total Creatine Kinase 52 Troponin I High Sens C-Reactive Protein 0.70 H Total Protein Albumin Lipase Procalcitonin 0.04 Urine Color Urine Appearance Urine pH Ur Specific [place] Urine Protein Urine Glucose (UA) Urine Ketones Urine Blood Urine Nitrite Ur Leukocyte Esterase Urine RBC Urine WBC Ur Squamous Epith Cells Urine Bacteria Urine Mucus Urine Test Coronavirus (PCR) Influenza Type A (PCR) Influenza Type B (PCR) RSV RNA Qual (PCR) 02/26/21 02/27/21 02/27/21 22:09 00:19 00:20 WBC RBC Hgb Hct MCV MCH MCHC RDW Plt Count MPV Immature Gran % (Auto) Neut % (Auto) Lymph % (Auto) [place] % (Auto) Eos % (Auto) Baso % (Auto) Lymph # (Auto) [place] # (Auto) Eos # (Auto) Baso # (Auto) Abs Immat Gran (auto) Absolute Neuts (auto) Absolute Nucleated RBC Nucleated RBC % (auto) Smear Tech's Comments Sodium Potassium Chloride Carbon Dioxide Anion Gap BUN Creatinine Estim Creat Clear Calc Estimated GFR Random Glucose Lactic Acid Calcium Ferritin Total Bilirubin AST ALT Alkaline Phosphatase Lactate Dehydrogenase Total Creatine Kinase Troponin I High Sens 20.3 H* C-Reactive Protein Total Protein Albumin Lipase Procalcitonin Urine Color DARK YELLOW Urine Appearance CLEAR Urine pH 6.0 Ur Specific [place] >= 1.030 H Urine Protein TRACE Urine Glucose (UA) NEG Urine Ketones NEG Urine Blood 2+ H Urine Nitrite NEG Ur Leukocyte Esterase NEG Urine RBC 0-2 Urine WBC 0-2 Ur Squamous Epith Cells 3+ Urine Bacteria TRACE Urine Mucus 2+ Urine Test NEGATIVE Coronavirus (PCR) Influenza Type A (PCR) Influenza Type B (PCR) RSV RNA Qual (PCR) 02/27/21 02/27/21 02/27/21 00:30 06:21 06:21 WBC 6.5 RBC 4.37 Hgb 12.8 Hct 39.8 MCV 91.1 MCH 29.3 MCHC 32.2 RDW 13.4 Plt Count 257 MPV 10.2 Immature Gran % (Auto) 0.3 Neut % (Auto) 90.7 H Lymph % (Auto) 7.8 L [place] % (Auto) 1.2 L Eos % (Auto) 0.0 Baso % (Auto) 0.0 Lymph # (Auto) 0.5 L [place] # (Auto) 0.1 Eos # (Auto) 0.0 Baso # (Auto) 0.0 Abs Immat Gran (auto) 0.02 Absolute Neuts (auto) 5.9 Absolute Nucleated RBC 0.000 Nucleated RBC % (auto) 0.0 Smear Tech's Comments VERIFIED Sodium 139 Potassium 4.9 Chloride 110 H Carbon Dioxide 21 L Anion Gap 13 BUN 12 Creatinine 0.88 Estim Creat Clear Calc 88.7 Estimated GFR > 60 Random Glucose 139 H D Lactic Acid Calcium 9.3 Ferritin Total Bilirubin AST ALT Alkaline Phosphatase Lactate Dehydrogenase Total Creatine Kinase Troponin I High Sens 21.3 H* C-Reactive Protein Total Protein Albumin Lipase Procalcitonin Urine Color Urine Appearance Urine pH Ur Specific [place] Urine Protein Urine Glucose (UA) Urine Ketones Urine Blood Urine Nitrite Ur Leukocyte Esterase Urine RBC Urine WBC Ur Squamous Epith Cells Urine Bacteria Urine Mucus Urine Test Coronavirus (PCR) Influenza Type A (PCR) Influenza Type B (PCR) RSV RNA Qual (PCR) Quality Stroke Does the patient have a stroke diagnosis?: No VTE Prior VTE?: No VTE Risk Level:: Medical - moderate - high VTE Device Contraindication: Treatment Not Indicated VTE Drug Contraindication: N/A - Med Ordered Assessment and Plan (1) Elevated LFTs: Status: Acute (2) Multifocal pneumonia: Status: Acute Assessment and Plan: 40-year-old female with no significant past medical history presents to the hospital with complaints of shortness of breath found to have multifocal pneumonia 1.multifocal pneumonia- although COVID-19 PCR negative, respiratory panel added , patient has image findings of for all pneumonia concerning for possible COVID-19 infection.also received MRN a vaccine 1st dose 3 days prior but her symptoms started a week prior to that. patient not hypoxic but placed on O2 by ED PA for comfort as patient had tachypnea and appears in respiratory distress received dexamethasone in ed , will continue dexamethsone for now on iv ceftriaxone and azithromycin day2 given multifocal pneumonia for possible bacterial infection follow cultures, Infectious Disease eval pending 2.elevated LFTs- denies use of alcohol will check hepatitis profile follow LFTs
--- NOTE | 2021-02-27 14:55 | PC.NURSE ---
first call upstairs to lokes[place]. efren rogers unavailable.
[2021-02-27 15:15] LABS: Alanine Aminotransferase 59 U/L (0-31); Alkaline Phosphatase 83 U/L (39-117); Aspartate Amino Transferase 35 U/L (5-31); Bilirubin Direct 0.3 mg/dL (0.0-0.5); Bilirubin Total 0.6 mg/dL (0.0-1.0); Total Protein 6.5 g/dL (6.5-8.0)
[2021-02-27] MEDS: dexAMETHasone 6 MG TABLET PO (16:03)
[2021-02-27] MEDS: Azithromycin 500 MG in 0.9 % Sodium Chloride 250 ML 125 MG IV (22:18)
[2021-02-28] VITALS (12 sets, daily range): BP systolic 80–119; BP diastolic 62–85; PULSE 11–129; RESP 18–24; TEMP 36.2–37.2; O2SAT 93–99
[2021-02-28] MEDS: Lactated Ringers 1,000 ML 999 ML IV (00:45)
[2021-02-28 01:08] LABS: Troponin-I High Sensitivity 13.1 ng/L (<3.5-17.0)
--- NOTE | 2021-02-28 01:29 | PC.NURSE ---
At beginning of shift, patient requesting to change rooms. This RN and Enrollment Counselor at bedside to explain to patient the need for negative pressure room for this admission for patient at this time. Patient restless, stating she needs to change rooms because she does not feel comfortable in current room. This RN called nursing furniture assembly supervisor to inform her of situation. Nursing furniture assembly supervisor and this RN called MD, who came up to bedside to speak to patient. Patient agreeable to stay in room after speaking with MD with wrapper sorter. MD ordered one time dose of morphine and a PRN for ambien for sleep as requested by patient. However, patient refused both when this RN attempted to give. MD also ordered a Lidocaine patch for back pain, which patient allowed placement to lower back.
--- NOTE | 2021-02-28 01:32 | PC.NURSE ---
When this RN was hanging antibiotics, patient states that she thought her arm looked swollen and wondered if her IV was okay. This RN explained to her that there was still blood return, and IV was not infiltrated at this time. After about 30 minutes, patient stating that IV site was painful. IV removed, not redness or swelling noted, ice pack applied for comfort. IV site accessed on other arm, working well. Patient allowed for antibiotics to continue to run. However, after about 30 more minutes, patient rang the call lang. On answering lang, patient states she is nauseous, SOB, and dizzy. BP low with dynamap reading. BP checked manually, 80/62. Patient instructed to sit down, as patient was ambulating around the room. Finnish speaking RN called to bedside. Patient in tripod position, standing next to bedside with head on bed, stating she cannot sit down because she cannot breathe. Patient sating 97-100% on room air. Patient agreeable to sitting down. This RN and second RN explained to patient that her BP was low, and her symptoms may be related to hypotension. Patient then agreeable to lay in bed, in semi jolly position. MD made aware of situation. Upon laying down, BP slightly improved to 87/64 with automated BP machine. MD gave verbal order to start 1lt LR. LR hung as ordered. Patient stating that her symptoms were then resolving. Dizziness and nausea dissipated. Blood work drawn as ordered. 0130 - Patient resting in bed, talking to family on phone. BP now improved to 114/84. Patient states symptoms resolved. LR still running as ordered. Will continue to reassess. made aware of update.
[2021-02-28] MEDS: Heparin Sodium,Porcine 5,000 UNIT/ML VIAL 5000 UNIT SUBCUT ×2 (01:42→11:52)
[2021-02-28] MEDS: Albuterol/Iprat 2.5/0.5MG 3 ML AMPUL.NEB INHALE ×3 (05:57→16:13)
[2021-02-28 07:58] LABS: HBc Num1 0.08 S/CO (0.00-0.79); HBsAGNum1 0.18 S/CO (0.00-0.99); Hepatitis B Core Antibody Nonreactive (Nonreactive); Hepatitis B Surface Antigen Negative (Negative)
[2021-02-28 08:14] LABS: HBS Num1 15.75 mIU/mL (0-7.99); ~HepC Num1 0.08 S/CO (0.00-0.79); ~Hepatitis B Surface Antibody REACTIVE (Nonreactive); ~Hepatitis C Antibody Nonreactive (Nonreactive)
[2021-02-28] MEDS: dexAMETHasone 6 MG TABLET PO (08:59)
[2021-02-28] MEDS: Lidocaine 4 % Patch ADH..PATCH 1 PATCH TRANSDERMA ×2 (08:59→20:53)
[2021-02-28] MEDS: 0.9 % Sodium Chloride Flush 3 ML SYRINGE IVFLUSH ×3 (08:59→20:46)
--- NOTE | 2021-02-28 09:00 | P.PNIM_ITS ---
Subjective Subjective Date of Service: 02/28/21 Interval History: Pneumonia, elevated LFTs Review of Systems Shortness of breath seems to be improving, LFTs also improving. Patient denies any chest pain or abdominal pain or nausea vomiting, has dry cough. Seems anxious Physical Exam Vital Signs: Vital Signs: Last Vital Signs Temp 98.5 F 02/28/21 07:40 Pulse 115 H 02/28/21 07:40 Resp 20 02/28/21 07:40 BP 111/75 02/28/21 07:40 Pulse Ox 93 02/28/21 07:40 Body Mass Index 31.8 Physical exam: heent: eyes: anicteric , no discharge Cvs: [id number], [id number] , no murmur res: air entry improving , slightly diminshed at bases , no rales or wheezing, some rhonchii abd: no rebound or guarding ,nt, bs present. ext pulses present , no cyanosis neuro: axo3 , nonfocal Objective Data Current Medications Generic Name Dose Route Start Last Admin Trade Name Freq PRN Reason Stop Dose Admin Acetaminophen 650 mg 02/27/21 00:28 Acetaminophen 325 Mg Tablet PO Q6H PRN Pain, Mild (Pain Scale 1-3) Al Hydroxide/Mg Hydroxide 15 ml 02/28/21 00:30 Magnesium Hydrox/Alum Hydrox 30 Ml Oral.Susp PO Q4H PRN Heartburn Albuterol Sulfate 1 puff 02/27/21 07:51 02/27/21 08:21 Albuterol Sulfate 90 Mcg 8 Gm Inhaler INHALE 1 puff Q4H PRN Administration sob Albuterol/Ipratropium 3 ml 02/28/21 05:26 02/28/21 05:57 Albuterol/Iprat 2.5/0.5mg 3 Ml Ampul.Neb INHALE 3 ml RQ4H PRN Administration Shortness of Breath/Wheezing Dexamethasone 6 mg 02/27/21 15:00 02/27/21 16:03 Dexamethasone 6 Mg Tablet PO 6 mg DAILY ARMANDO Administration Docusate Sodium 100 mg 02/27/21 00:28 Docusate Sodium 100 Mg Capsule PO DAILY PRN Constipation Heparin Sodium (Porcine) 5,000 unit 02/27/21 00:28 02/28/21 01:42 Heparin Sodium,Porcine 5,000 Unit/Ml Vial SUBCUT 5,000 unit Q12H ARMANDO Administration Ceftriaxone Sodium 1 gm/ 50 mls @ 100 mls/hr 02/27/21 22:00 02/27/21 22:53 Sodium Chloride IV Infused Q24H ARMANDO Infusion Azithromycin 500 mg/ Sodium 250 mls @ 125 mls/hr 02/27/21 21:00 02/28/21 00:58 Chloride IV Infused Q24H ARMANDO Infusion Lidocaine 1 patch 02/27/21 09:00 02/27/21 22:34 Lidocaine 4 % Patch Adh..Patch TRANSDERMA 1 patch DAILY ARMANDO Administration Protocol Lidocaine 1 patch 02/28/21 09:00 Lidocaine 4 % Patch Adh..Patch TRANSDERMA DAILY ARMANDO Protocol Ondansetron HCl 4 mg 02/27/21 00:28 Ondansetron Hcl 4 Mg/2 Ml Vial IVPUSH Q8H PRN Nausea and Vomiting Sodium Chloride 3 ml 02/27/21 00:28 02/27/21 22:35 0.9 % Sodium Chloride Flush 3 Ml Syringe IVFLUSH 3 ml QSHIFT ARMANDO Administration Tizanidine HCl 4 mg 02/27/21 00:28 Tizanidine Hcl 4 Mg Tablet PO TID PRN muscle spasticity Zolpidem Tartrate 5 mg 02/27/21 21:54 Zolpidem Tartrate 5 Mg Tablet PO BEDTIME PRN Insomnia Labs CBC & Chem 7: 02/28/21 09:23 02/28/21 09:23 Labs: Laboratory Results - last 24 hr 02/27/21 02/27/21 02/27/21 06:21 06:21 09:23 Total Bilirubin 0.6 Direct Bilirubin 0.3 AST 35 H ALT 59 H Alkaline Phosphatase 83 Troponin I High Sens Total Protein 6.5 Albumin 4.0 Respiratory Panel Hernandez See Note Adenovirus (Rapid PCR) Not Detected B.pert (TEM-PCR) Not Detected B.parapertussis DNA PCR Not Detected C. pneumoniae DNA (PCR) Not Detected Coronavirus OC43 (PCR) Not Detected Coronavirus HKU1 (PCR) Not Detected Coronavirus 229E (PCR) Not Detected Coronavirus NL63 (PCR) Not Detected Hep Bs Antigen Negative Hep Bs Antibody REACTIVE Hep B Core Total Ab Nonreactive Hepatitis C Ab (EIA) Nonreactive Human Metapneumovir PCR Not Detected Influenza A (RT-PCR) Not Detected Influenza B (RT-PCR) Not Detected M. pneumoniae (PCR) Not Detected Parainfluenza 1 (PCR) Not Detected Parainfluenza 2 (PCR) Not Detected Parainfluenza 3 (PCR) Not Detected Parainfluenza 4 (PCR) Not Detected RSV (PCR) Not Detected Entero/Rhino (PCR) Not Detected SARS-CoV-2 RNA (RT-PCR) Not Detected 02/28/21 00:37 Total Bilirubin Direct Bilirubin AST ALT Alkaline Phosphatase Troponin I High Sens 13.1 Total Protein Albumin Respiratory Panel Hernandez Adenovirus (Rapid PCR) B.pert (TEM-PCR) B.parapertussis DNA PCR C. pneumoniae DNA (PCR) Coronavirus OC43 (PCR) Coronavirus HKU1 (PCR) Coronavirus 229E (PCR) Coronavirus NL63 (PCR) Hep Bs Antigen Hep Bs Antibody Hep B Core Total Ab Hepatitis C Ab (EIA) Human Metapneumovir PCR Influenza A (RT-PCR) Influenza B (RT-PCR) M. pneumoniae (PCR) Parainfluenza 1 (PCR) Parainfluenza 2 (PCR) Parainfluenza 3 (PCR) Parainfluenza 4 (PCR) RSV (PCR) Entero/Rhino (PCR) SARS-CoV-2 RNA (RT-PCR) Microbiology Microbiology Results: Microbiology 02/26/21 22:09 Blood Culture - Preliminary Blood - Venous No growth after 24 hours. 02/26/21 22:09 Blood Culture - Preliminary Blood - Venous No growth after 24 hours. Quality Stroke Does the patient have a stroke diagnosis?: No VTE Prior VTE?: No VTE Risk Level:: Medical - moderate - high VTE Device Contraindication: Treatment Not Indicated VTE Drug Contraindication: N/A - Med Ordered Assessment and Plan (1) Elevated LFTs: Status: Acute (2) Multifocal pneumonia: Status: Acute Assessment and Plan: 40-year-old female with no significant past medical history presents to the hospital with complaints of shortness of breath found to have multifocal pneumonia 1.multifocal pneumonia- although COVID-19 PCR negative, respiratory panel added , patient has image findings of for all pneumonia concerning for possible COVID-19 infection.also received MRN a vaccine 1st dose 3 days prior but her symptoms started a week prior to that. patient not hypoxic but placed on O2 by ED PA for comfort as patient had tac hypnea and appears in respiratory distress received dexamethasone in ed , will continue dexamethsone for now on iv ceftriaxone and azithromycin day3 given multifocal pneumonia for possible bacterial infection follow cultures, Infectious Disease eval pending 2.elevated LFTs- denies use of alcohol will check hepatitis profile follow LFTs
--- NOTE | 2021-02-28 09:36 | MHC.CM.PN ---
spoke with pts wh reprots that tprior to admission pt hd no servceis he does not ,feelpt will need services when dcd dc plan home no servceis
[2021-02-28 09:48] LABS: Hematocrit 35.6 % (37-47); Hemoglobin 11.6 g/dl (12.0-16.0); Mean Corpuscular HGB Conc 32.6 g/dl (31.0-35.0); Mean Platelet Volume 10.6 fL (9.4-12.3); Platelet Count 239 X10*3/uL (160-400); Red Blood Count 3.87 X10*6/uL (4.20-5.50); Red Cell Distribution Width 14.1 % (11.0-16.0); White Blood Count 11.1 X10*3/uL (4.8-10.8)
[2021-02-28 10:33] LABS: Anion Gap 14 (12-20); Blood Urea Nitrogen 12 mg/dL (9-16); Calcium 8.6 mg/dL (8.4-10.2); Carbon Dioxide 19 mmol/L (22-29); Chloride 110 mmol/L (96-108); Creatinine Clr Calc Pharmacy 90.1; Estimated Glomerular Filt Rate > 60; Glucose Random 186 mg/dL (60-115); Potassium 4.2 mmol/L (3.3-5.1); Sodium 139 mmol/L (135-145)
[2021-02-28] MEDS: hydrOXYzine HCL 25 MG TABLET PO (20:44)
[2021-02-28] MEDS: Azithromycin 500 MG in 0.9 % Sodium Chloride 250 ML 125 MG IV (20:44)
--- NOTE | 2021-02-28 21:32 | W.PM.IDCN ---
History of Present Illness Data of Consult Service Date: 02/28/21 Requesting physician: Brigid Song Primary Care Provider: Sandi Rivas MD [facility] Reason for consult: shortness of breath She presents with shortness of breath as well as cough for last week She has prior COVID antibodies from 10/2019. She has negative COVID testing now. Review of Systems Review of Systems: Yes all other systems are reviewed and are negative [facility] Past Medical History Medical History Dyspnea Fibromyalgia Goiter Obese Tachycardia Thyroid nodule Family History Family History Father No problems noted. Mother No problems noted. Surgical History Surgical History H/O abdominoplasty History of endometrial ablation Hx of tubal ligation S/P thyroid biopsy Social History Social History Household Members: Family Housing: House Do you presently have visiting nurse or other home services: No Alcohol intake: current Alcohol intake frequency: a few times a month Patient Tobacco Use Status: Never used Tobacco service: No Current occupational status: employed Gender identity: female Meds Allergies Allergy/AdvReac Type Severity Reaction Status Date / Time No Known Allergies Allergy Verified 02/26/21 19:33 Active Medications: Current Medications Generic Name Dose Route Start Last Admin Trade Name Freq PRN Reason Stop Dose Admin Acetaminophen 650 mg 02/27/21 00:28 Acetaminophen 325 Mg Tablet PO Q6H PRN Pain, Mild (Pain Scale 1-3) Al Hydroxide/Mg Hydroxide 15 ml 02/28/21 00:30 Magnesium Hydrox/Alum Hydrox 30 Ml Oral.Susp PO Q4H PRN Heartburn Albuterol Sulfate 1 puff 02/27/21 07:51 02/27/21 08:21 Albuterol Sulfate 90 Mcg 8 Gm Inhaler INHALE 1 puff Q4H PRN Administration sob Albuterol/Ipratropium 3 ml 02/28/21 05:26 02/28/21 16:13 Albuterol/Iprat 2.5/0.5mg 3 Ml Ampul.Neb INHALE 3 ml RQ4H PRN Administration Shortness of Breath/Wheezing Dexamethasone 6 mg 02/27/21 15:00 02/28/21 08:59 Dexamethasone 6 Mg Tablet PO 6 mg DAILY ARMANDO Administration Docusate Sodium 100 mg 02/27/21 00:28 Docusate Sodium 100 Mg Capsule PO DAILY PRN Constipation Heparin Sodium (Porcine) 5,000 unit 02/27/21 00:28 02/28/21 11:52 Heparin Sodium,Porcine 5,000 Unit/Ml Vial SUBCUT 5,000 unit Q12H ARMANDO Administration Hydroxyzine HCl 25 mg 02/28/21 19:45 02/28/21 20:44 Hydroxyzine Hcl 25 Mg Tablet PO 25 mg Q6H PRN Administration anxiety/restlessness Azithromycin 500 mg/ Sodium 250 mls @ 125 mls/hr 02/27/21 21:00 02/28/21 20:44 Chloride IV 125 mls/hr Q24H ARMANDO Administration Lidocaine 1 patch 02/27/21 09:00 02/28/21 20:53 Lidocaine 4 % Patch Adh..Patch TRANSDERMA 1 patch DAILY ARMANDO Administration Protocol Lidocaine 1 patch 02/28/21 09:00 02/28/21 09:09 Lidocaine 4 % Patch Adh..Patch TRANSDERMA Not Given DAILY [facility] Protocol Ondansetron HCl 4 mg 02/27/21 00:28 Ondansetron Hcl 4 Mg/2 Ml Vial IVPUSH Q8H PRN Nausea and Vomiting Sodium Chloride 3 ml 02/27/21 00:28 02/28/21 20:46 0.9 % Sodium Chloride Flush 3 Ml Syringe IVFLUSH 3 ml QSHIFT ARMANDO Administration Tizanidine HCl 4 mg 02/27/21 00:28 Tizanidine Hcl 4 Mg Tablet PO TID PRN muscle spasticity Zolpidem Tartrate 5 mg 02/27/21 21:54 Zolpidem Tartrate 5 Mg Tablet PO BEDTIME PRN Insomnia Home Medications Medication Instructions Recorded Confirmed Last Taken Type albuterol sulfate [ProAir HFA] 2 puff PO Q4-6H PRN 02/27/21 02/27/21 Unknown History meloxicam 1 tab PO DAILY 02/27/21 02/27/21 Unknown History Physical Exam Vital Signs: Vital Signs: Last Vital Signs Temp 97.4 F 02/28/21 19:07 Pulse 129 H 02/28/21 19:07 Resp 19 02/28/21 19:07 BP 111/82 02/28/21 19:07 Pulse Ox 97 02/28/21 19:07 Body Mass Index 31.8 Const: General: cooperative HENMT: Head: Yes normal to inspection Mouth: Normal oral and palatal mucosa present Eyes: General: appearance normal, both eyes and all related structures Resp: Effort & Inspection: normal respiratory effort and able to speak in complete sentences Cardio: Rate: regular rate Rhythm: regular rhythm GI: Palpation (GI): Soft to palpation and nontender Skin: General skin exam: no rashes or lesions noted Extrem: General: Yes normal to inspection Results Labs CBC & Chem 7: 02/28/21 09:23 02/28/21 09:23 Labs: Short CBC 02/28/21 Range/Units 09:23 WBC 11.1 H (4.8-10.8) X10*3/uL Hgb 11.6 L (12.0-16.0) g/dl Hct 35.6 L (37-47) % Plt Count 239 (160-400) X10*3/uL BMP 02/28/21 09:23 Sodium 139 Potassium 4.2 Chloride 110 H Carbon Dioxide 19 L BUN 12 Creatinine 0.87 Calcium 8.6 D Microbiology Microbiology Results: Microbiology 02/26/21 22:09 Blood - Venous Blood Culture - Preliminary No growth after 24 hours. 02/26/21 22:09 Blood - Venous Blood Culture - Preliminary No growth after 24 hours. Assessment and Plan (1) Multifocal pneumonia: Status: Acute She has probable atypical pneumonia such as mycoplasma or chlamydia There is no evidence of COVID She has asthma Suggest Azithromycin Zpack Check mycoplasma IgM,chlamydia ,Legionella
--- NOTE | 2021-02-28 22:15 | PC.NURSE ---
While azithromycin infusing pt has become anxious and reports feeling like her bp is dropping. VSS, bp not much lower than previous vitals at 1900. bp is 99/60. notified
[2021-02-28 23:01] LABS: D Dimer 849 NG/ML
[2021-03-01] VITALS (7 sets, daily range): BP systolic 109–126; BP diastolic 75–80; PULSE 100–115; RESP 16–22; TEMP 36.3–36.9; O2SAT 92–98
[2021-03-01] MEDS: Magnesium Hydrox/Alum Hydrox 30 ML ORAL.SUSP 15 ML PO ×4 (01:12→21:48)
[2021-03-01] MEDS: Heparin Sodium,Porcine 5,000 UNIT/ML VIAL 5000 UNIT SUBCUT ×2 (01:12→11:36)
[2021-03-01] MEDS: iohexoL 350 MG/ML 100 ML INFUS..BTL 65 ML IV (01:12)
[2021-03-01] MEDS: Zolpidem Tartrate 5 MG TABLET PO (01:20)
[2021-03-01] MEDS: 0.9 % Sodium Chloride Flush 3 ML SYRINGE IVFLUSH ×3 (08:14→21:49)
[2021-03-01] MEDS: dexAMETHasone 6 MG TABLET PO (08:14)
[2021-03-01] MEDS: Lidocaine 4 % Patch ADH..PATCH 1 PATCH TRANSDERMA (08:14)
--- NOTE | 2021-03-01 08:19 | HO.PM.IMPN ---
Subjective Subjective Date of Service: 03/01/21 Interval History: Pneumonia, elevated LFTs Review of Systems still sob , tachy Denies any chest oral or abdominal pain for nausea or vomiting or urinary complaints Physical Exam Vital Signs: Vital Signs: Last Vital Signs Temp 97.8 F 03/01/21 07:27 Pulse 113 H 03/01/21 07:27 Resp 18 03/01/21 07:27 BP 109/78 03/01/21 07:27 Pulse Ox 96 03/01/21 07:27 Body Mass Index 31.8 physical exam: heent: eyes: anicteric , no discharge Cvs: [id number], [id number] , no murmur res: air entry improving , slightly diminshed at bases , no rales or wheezing, some rhonchii abd: no rebound or guarding ,nt, bs present. ext pulses present , no cyanosis neuro: axo3 , nonfocal Objective Data Current Medications Generic Name Dose Route Start Last Admin Trade Name Freq PRN Reason Stop Dose Admin Acetaminophen 650 mg 02/27/21 00:28 Acetaminophen 325 Mg Tablet PO Q6H PRN Pain, Mild (Pain Scale 1-3) Al Hydroxide/Mg Hydroxide 15 ml 02/28/21 00:30 03/01/21 01:12 Magnesium Hydrox/Alum Hydrox 30 Ml Oral.Susp PO 15 ml Q4H PRN Administration Heartburn Albuterol Sulfate 1 puff 02/27/21 07:51 02/27/21 08:21 Albuterol Sulfate 90 Mcg 8 Gm Inhaler INHALE 1 puff Q4H PRN Administration sob Albuterol/Ipratropium 3 ml 02/28/21 05:26 02/28/21 16:13 Albuterol/Iprat 2.5/0.5mg 3 Ml Ampul.Neb INHALE 3 ml RQ4H PRN Administration Shortness of Breath/Wheezing Dexamethasone 6 mg 02/27/21 15:00 03/01/21 08:14 Dexamethasone 6 Mg Tablet PO 6 mg DAILY ARMANDO Administration Docusate Sodium 100 mg 02/27/21 00:28 Docusate Sodium 100 Mg Capsule PO DAILY PRN Constipation Heparin Sodium (Porcine) 5,000 unit 02/27/21 00:28 03/01/21 01:12 Heparin Sodium,Porcine 5,000 Unit/Ml Vial SUBCUT 5,000 unit Q12H ARMANDO Administration Hydroxyzine HCl 25 mg 02/28/21 19:45 02/28/21 20:44 Hydroxyzine Hcl 25 Mg Tablet PO 25 mg Q6H PRN Administration anxiety/restlessness Azithromycin 500 mg/ Sodium 250 mls @ 125 mls/hr 02/27/21 21:00 02/28/21 22:15 Chloride IV Infused Q24H ARMANDO Infusion Lidocaine 1 patch 02/27/21 09:00 03/01/21 08:14 Lidocaine 4 % Patch Adh..Patch TRANSDERMA 1 patch DAILY ARMANDO Administration Protocol Lidocaine 1 patch 02/28/21 09:00 02/28/21 09:09 Lidocaine 4 % Patch Adh..Patch TRANSDERMA Not Given DAILY [facility] Protocol Ondansetron HCl 4 mg 02/27/21 00:28 Ondansetron Hcl 4 Mg/2 Ml Vial IVPUSH Q8H PRN Nausea and Vomiting Sodium Chloride 3 ml 02/27/21 00:28 03/01/21 08:14 0.9 % Sodium Chloride Flush 3 Ml Syringe IVFLUSH 3 ml QSHIFT ARMANDO Administration Tizanidine HCl 4 mg 02/27/21 00:28 Tizanidine Hcl 4 Mg Tablet PO TID PRN muscle spasticity Zolpidem Tartrate 5 mg 02/27/21 21:54 03/01/21 01:20 Zolpidem Tartrate 5 Mg Tablet PO 5 mg BEDTIME PRN Administration Insomnia Labs CBC & Chem 7: 02/28/21 09:23 03/01/21 09:45 Labs: Laboratory Results - last 24 hr 02/27/21 02/28/21 02/28/21 06:21 09:23 09:23 WBC 11.1 H RBC 3.87 L Hgb 11.6 L Hct 35.6 L MCV 92.0 MCH 30.0 MCHC 32.6 RDW 14.1 Plt Count 239 MPV 10.6 Absolute Nucleated RBC 0.000 Nucleated RBC % (auto) 0.0 D-Dimer Sodium 139 Potassium 4.2 Chloride 110 H Carbon Dioxide 19 L Anion Gap 14 BUN 12 Creatinine 0.87 Estim Creat Clear Calc 90.1 Estimated GFR > 60 Random Glucose 186 H Calcium 8.6 D Hep Bs Antigen Negative Hep Bs Antibody REACTIVE Hep B Core Total Ab Nonreactive Hepatitis C Ab (EIA) Nonreactive 02/28/21 22:40 WBC RBC Hgb Hct MCV MCH MCHC RDW Plt Count MPV Absolute Nucleated RBC Nucleated RBC % (auto) D-Dimer 849 Sodium Potassium Chloride Carbon Dioxide Anion Gap BUN Creatinine Estim Creat Clear Calc Estimated GFR Random Glucose Calcium Hep Bs Antigen Hep Bs Antibody Hep B Core Total Ab Hepatitis C Ab (EIA) Microbiology Microbiology Results: Microbiology 02/26/21 22:09 Blood Culture - Preliminary Blood - Venous No growth after 48 hours. 02/26/21 22:09 Blood Culture - Preliminary Blood - Venous No growth after 48 hours. Quality Stroke Does the patient have a stroke diagnosis?: No VTE Prior VTE?: No VTE Risk Level:: Medical - moderate - high VTE Device Contraindication: Treatment Not Indicated VTE Drug Contraindication: N/A - Med Ordered Assessment and Plan (1) Elevated LFTs: Status: Acute (2) Dyspnea: Status: Acute (3) Multifocal pneumonia: Status: Acute Assessment and Plan: 40-year-old female with no significant past medical history presents to the hospital with complaints of shortness of breath found to have multifocal pneumonia 1.multifocal pneumonia- although COVID-19 PCR negative, respiratory panel -neg, patient has image findings of for all pneumonia concerning for possible COVID-19 infection.also received MRN a vaccine 1st dose 3 days prior but her symptoms started a week prior to that. patient not hypoxic but placed on O2 by ED PA for comfort as patient had tachypnea and appears in respiratory distress received dexamethasone in ed , will continue dexamethsone for now switched azithromycin day4 given multifocal pneumonia for possible bacterial infection follow blood cultures neg @48hrs Infectious Disease eval noted. 2.elevated LFTs- denies use of alcohol will check hepatitis [id number] pending Hepatitis B surface antibody reactive Hepatitis B surface antigen negative and hepatitis-B core total antibody nonreactive. Hepatitis C (EIA)nonreactive. lft's improving , follow LFTs 3.Elevated troponins :echo-low ef bnp 1278 added lasix and trial of diovan Monitor renal function and electrolytes.
--- NOTE | 2021-03-01 09:30 | CA_ITS ---
Transthoracic Echocardiogram Patient (Last, First, Middle): Edin Landaverde, Gender: Female Date of : 1980 Age: 40 Procedure Date: 03/01/2021 Procedure Type: Transthoracic Echocardiogram Location: [facility] Height: 162.56 cm Weight: 83.92 kg BSA: 1.89 m2 Heart Rate: bpm BP: 126 / 77 mmHg Administrative Services Manager: Dulce MD: Clayton Hernandez MD Cold Work Operator: Payam Aviles MD Symptoms: dyspnea; pulm htn; pulm edema; Study Quality: Good ECG Rhythm: Sinus Conclusions: - 1. Moderately dilated left ventricle with severe LV systolic dysfunction with LVEF of 10-15% with pseudonormal filling pattern 2. Mild mitral regurgitation secondary to annular dilatation 3. Ceok-ot-xsfcamau tricuspid regurgitation with mildly elevated right ventricular systolic pressure is significantly elevated right atrial pressures 4. Trivial pericardial effusion Findings Left Ventricle Moderately increased left ventricular cavity size. There is normal left ventricular wall thickness. The left ventricular systolic function is severely decreased. The visually estimated ejection fraction is between 10 15%. There is severe global hypokinesis. Spectral Doppler is indicative of a pseudonormal filling pattern. Right Ventricle Mildly increased right ventricular cavity size. There is mild to moderately decreased right ventricular systolic function. Atria The left atrium is normal in size. There is no evidence of interatrial shunt. The right atrium is normal in size. Aortic Valve Normal aortic valve structure and function. There is no aortic valve stenosis. There is no aortic valve regurgitation. Mitral Valve There is mild mitral valve regurgitation. There is moderate mitral annular dilatation. Pulmonic Valve The pulmonic valve is likely normal. There is mild pulmonic valve regurgitation. Tricuspid Valve Normal tricuspid valve structure. There is mild to moderate tricuspid valve regurgitation. Significantly elevated right atrial pressure. Mild pulmonary hypertension is present. Great Vessels All visible segments of the aorta are normal in size. The pulmonary artery was not well visualized. Venous The inferior vena cava is moderately dilated and does not collapse with inspiration. Pericardium/Pleural There is a trivial circumferential pericardial effusion. Prior Study Comparison No prior study available for comparison. Measurements 2D Linear Measurements RVIDd: 3.58 RVIDd Index: 1.89 IVSd: 0.87 0.6-0.9/0.6-1.0 cm LVIDd: 6.32 3.9-5.3/4.2-5.9 cm LVIDd Index: 3.34 2.4-3.2/2.2-3.1 cm/m2 LVIDs: 5.51 2.0-3.6 cm LVPWd: 0.99 0.7-1.1 cm Ao Root: 2.70 2.1-3.5 cm LV Mass: 307.33 67-162/88-224 g LV Mass Index: 162.61 43-95/49-115 g/m2 LVOT Diam: 2.10 3.0+(-)1.3 cm 2D Systolic Function EF 4C: 29.70 >55% EF 2C: 10.20 >55% EF BiP: 17.40 >55% Mitral Valve E'Lateral: 6.09 E'Medial: 4.35 MR Vol - PW Dopp: 14.25 MR VTI: 0.84 MR ERO: 17.00 MR Alias Malik: 0.35 MR RAD: 0.50 Aortic Valve AoV Pk Malik: 0.73 AoV Mn Malik: 0.60 AoV VTI: 0.10 AoV Pk Grad: 2.00 Aov Mn Grad: 2.00 CYNTHIA Cont.VTI: 2.60 LVOT LVOT Pk Malik: 0.61 LVOT Mn Malik: 0.47 LVOT VTI: 0.07 LVOT Pk Grad: 1.00 LVOT Mn Grad: 1.00 LVOT Diam: 2.10 LVOT Area: 3.46 Diastolic Function E'Medial: 4.35 E' Laterial: 6.09 Tricuspid Valve TR Pk Malik: 2.55 TR Pk Grad: 26.00 RA Press: 15.00 RVSP: 41.00 Great Vessels Aorta Ao Root-2D: 2.70 2.0-3.7 cm Ao Asc: 2.80 2.1-3.4 cm Ao Arch: 2.80 Updated in Other Vendor System with Status of Final Payam Aviles MD electronically signed on 03/01/2021 9:09:33 AM with status of Final
[2021-03-01 10:17] LABS: Anion Gap 16 (12-20); Blood Urea Nitrogen 16 mg/dL (9-16); Calcium 8.7 mg/dL (8.4-10.2); Carbon Dioxide 17 mmol/L (22-29); Chloride 109 mmol/L (96-108); Estimated Glomerular Filt Rate 57; Glucose Random 102 mg/dL (60-115); Potassium 4.3 mmol/L (3.3-5.1); Sodium 138 mmol/L (135-145)
[2021-03-01] MEDS: hydrOXYzine HCL 25 MG TABLET PO (10:24)
[2021-03-01 10:27] LABS: B Type Natriuretic Peptide 1278 pg/mL (<100)
[2021-03-01 10:37] LABS: Thyroid Stimulating Hormone 0.43 uIU/mL (0.32-4.0)
--- NOTE | 2021-03-01 11:20 | PM.CNCAR ---
History of Present Illness History of Present Illness Date of Service: 03/01/21 Requesting physician: Brigid Song Consult reason: congestive heart failure Chief complaint: Covid 19 PNA Narrative: I was requested to see Edin in cardiology consultation today for shortness of breath and LV systolic dysfunction. She is a pleasant 40-year-old female, history obtained with help of medical interpreter. Patient will last many months has been feeling symptoms of fatigue, and progressively getting short of breath over the last week as well as getting orthopnea, will leg edema which has been constant for some time as well as abdominal discomfort and distention. She was also having cough. She present to emergency room and initial chest x-ray was suggestive of bilateral lower lobe infiltrates suggestive of multifocal pneumonia. Her subsequent CTA due to persistent hypoxemia showed no evidence of pulmonary embolism but showed cardiomegaly with evidence pulmonary hypertension dilated pulmonary artery as well as reflux in the IVC suggestive of elevated right atrial pressures. She subsequently underwent echocardiogram this morning which showed marked LV systolic dysfunction with LVEF of 10-15% with evidence of significantly elevated right atrial pressures. She has mild mitral regurgitation due to dilated left ventricle. She denies Alcohol use or any use of other drugs. recently started on multivitamins and zinc and also adipex for weight loss. denies any recent viral syndrome or any other systemic illness. She was complaining of back pain and felt like this was related to pneumonia. She denies any exertional chest pain. No palpitations, lightheadedness, syncope. Noted to have sinus tachycardia. Review of Systems Constitutional: Constitutional: Denies anorexia, Denies body ache(s), Denies chills, Reports daytime sleepiness, Denies fever(s), Reports lethargy and Reports snoring Cardiovascular: Cardiovascular: Denies chest pain, Denies rapid heart rate, Reports leg edema, Denies lightheadedness, Denies Loss of Consciousness, Reports dyspnea, Reports dyspnea on exertion and Reports orthopnea Respiratory: Respiratory: Reports cough, Reports dyspnea, Reports dyspnea on exertion and Reports snoring Gastrointestinal: Gastrointestinal: Reports bloating Genitourinary: Genitourinary: Reports no additional female genitourinary complaints Musculoskeletal: Musculoskeletal: Reports no additional musculoskeletal complaints Integumentary/Breasts: Skin/Breast: Reports system reviewed and no additional complaints, except as docu Neurologic: Reports system reviewed and no additional complaints, except as documented Psychiatric: Psychiatric: Reports no additional psychiatric complaints Endocrine: Endocrine: Reports no additional endocrine complaints Hematologic/Lymphatic: Hematologic/Lymphatic: Reports no additional hematologic/lymphatic complaints Allergic/Immunologic: Allergic/Immunologic: Reports no additional allergic/immunologic complaints [facility] Past Medical History Medical History Dyspnea Fibromyalgia Goiter Obese Tachycardia Thyroid nodule Family History Family History Father No problems noted. Mother No problems noted. Surgical History Surgical History H/O abdominoplasty History of endometrial ablation Hx of tubal ligation S/P thyroid biopsy Social History Social History (Reviewed 03/01/21 @ 11: by Payam Aviles MD) Household Members: Family Housing: House Do you presently have visiting nurse or other home services: No Alcohol intake: current Alcohol intake frequency: a few times a month Patient Tobacco Use Status: Never used Tobacco service: No Current occupational status: employed Gender identity: female Meds Allergies Allergy/AdvReac Type Severity Reaction Status Date / Time No Known Allergies Allergy Verified 02/26/21 19:33 Active Medications: Current Medications Generic Name Dose Route Start Last Admin Trade Name Freq PRN Reason Stop Dose Admin Acetaminophen 650 mg 02/27/21 00:28 Acetaminophen 325 Mg Tablet PO Q6H PRN Pain, Mild (Pain Scale 1-3) Al Hydroxide/Mg Hydroxide 15 ml 02/28/21 00:30 03/01/21 09:56 Magnesium Hydrox/Alum Hydrox 30 Ml Oral.Susp PO 15 ml Q4H PRN Administration Heartburn Albuterol Sulfate 1 puff 02/27/21 07:51 02/27/21 08:21 Albuterol Sulfate 90 Mcg 8 Gm Inhaler INHALE 1 puff Q4H PRN Administration sob Albuterol/Ipratropium 3 ml 02/28/21 05:26 02/28/21 16:13 Albuterol/Iprat 2.5/0.5mg 3 Ml Ampul.Neb INHALE 3 ml RQ4H PRN Administration Shortness of Breath/Wheezing Dexamethasone 6 mg 02/27/21 15:00 03/01/21 08:14 Dexamethasone 6 Mg Tablet PO 6 mg DAILY ARMANDO Administration Docusate Sodium 100 mg 02/27/21 00:28 Docusate Sodium 100 Mg Capsule PO DAILY PRN Constipation Furosemide 20 mg 03/01/21 11:00 Furosemide 20 Mg/2 Ml Vial IVPUSH Q12H [facility] Protocol Heparin Sodium (Porcine) 5,000 unit 02/27/21 00:28 03/01/21 01:12 Heparin Sodium,Porcine 5,000 Unit/Ml Vial SUBCUT 5,000 unit Q12H ARMANDO Administration Hydroxyzine HCl 25 mg 02/28/21 19:45 03/01/21 10:24 Hydroxyzine Hcl 25 Mg Tablet PO 25 mg Q6H PRN Administration anxiety/restlessness Azithromycin 500 mg/ Sodium 250 mls @ 125 mls/hr 02/27/21 21:00 02/28/21 22:15 Chloride IV Infused Q24H [facility] Infusion Lidocaine 1 patch 02/27/21 09:00 03/01/21 08:14 Lidocaine 4 % Patch Adh..Patch TRANSDERMA 1 patch DAILY [facility] Administration Protocol Lidocaine 1 patch 02/28/21 09:00 03/01/21 09:55 Lidocaine 4 % Patch Adh..Patch TRANSDERMA Not Given DAILY [facility] Protocol Ondansetron HCl 4 mg 02/27/21 00:28 Ondansetron Hcl 4 Mg/2 Ml Vial IVPUSH Q8H PRN Nausea and Vomiting Sodium Chloride 3 ml 02/27/21 00:28 03/01/21 08:14 0.9 % Sodium Chloride Flush 3 Ml Syringe IVFLUSH 3 ml QSHIFT ARMANDO Administration Tizanidine HCl 4 mg 02/27/21 00:28 Tizanidine Hcl 4 Mg Tablet PO TID PRN muscle spasticity Zolpidem Tartrate 5 mg 02/27/21 21:54 03/01/21 01:20 Zolpidem Tartrate 5 Mg Tablet PO 5 mg BEDTIME PRN Administration Insomnia Home Medications Medication Instructions Recorded Confirmed Last Taken Type albuterol sulfate [ProAir HFA] 2 puff PO Q4-6H PRN 02/27/21 02/27/21 Unknown History meloxicam 1 tab PO DAILY 02/27/21 02/27/21 Unknown History Physical Exam Vital Signs: Vital Signs: Last Vital Signs Temp 97.4 F 03/01/21 11:06 Pulse 115 H 03/01/21 11:06 Resp 18 03/01/21 11:06 BP 111/80 03/01/21 11:06 Pulse Ox 96 03/01/21 11:06 Body Mass Index 31.8 Const: General: cooperative, comfortable, alert, awake, acute distress mild and respiratory and anxious Nutritional Appearance: overweight Orientation/consciousness: patient oriented x3 Limitations: no limitations HENMT: Head: Yes normocephalic and Yes atraumatic Neck: Neck: Yes trachea midline, Yes supple and Yes JVD Resp: Effort & Inspection: normal respiratory effort Auscultation: rales bilateral 1/[address] up Cardio: Jugular venous distension: JVD Palpation: abnormal PMI displaced PMI Rate: regular rate and tachycardic Rhythm: regular rhythm Heart sounds: S1 normal heart sound present, S2 normal heart sound present, no click, Gallop heart sound present S3 gallop, no murmurs and no rubs GI: Auscultation: normal bowel sounds Skin: General skin exam: no rashes or lesions noted Neuro: General: patient oriented x3 Extrem: General: Yes no clubbing, cyanosis or edema Psych: Appearance: grossly normal Affect: Anxious affect present Results Labs and Meds Result diagrams: 02/28/21 09:23 03/01/21 09:45 Lab results: Laboratory Results - last 24 hr 02/28/21 03/01/21 03/01/21 22:40 09:45 09:45 D-Dimer 849 Sodium 138 Potassium 4.3 Chloride 109 H Carbon Dioxide 17 L Anion Gap 16 BUN 16 Creatinine 1.06 Estim Creat Clear Calc 74.0 Estimated GFR 57 Random Glucose 102 D Calcium 8.7 B-Natriuretic Peptide 1278 H TSH 03/01/21 09:45 D-Dimer Sodium Potassium Chloride Carbon Dioxide Anion Gap BUN Creatinine Estim Creat Clear Calc Estimated GFR Random Glucose Calcium B-Natriuretic Peptide TSH 0.43 Echo Conclusions: - 1. Moderately dilated left ventricle with severe LV systolic dysfunction with LVEF of 10-15% with pseudonormal filling pattern 2. Mild mitral regurgitation secondary to annular dilatation 3. [id number] tricuspid regurgitation with mildly elevated right ventricular systolic pressure is significantly elevated right atrial pressures 4. Trivial pericardial effusion EKG shows sinus tachycardia with poor R-wave progression with rightward axis Imaging Radiologist's impression: Impressions Chest CTA 03/01/21 00:00 IMPRESSION: 1. No pulmonary embolus identified. Dilated main pulmonary artery suggests pulmonary artery hypertension. There is also reflux of contrast into the IVC and hepatic veins which can be seen with elevated right heart pressures. 2. Pulmonary findings suspicious for edema. 3. Cardiomegaly. 4. Small right and trace pleural effusions. 5. Partially visualized enlarged thyroid gland. Correlation with prior follow-up thyroid ultrasound is recommended. VTE: negative Assessment and Plan (1) Acute systolic heart failure: Status: Acute Patient noted to have severe LV systolic dysfunction with progressive symptoms suggestive of decompensated congestive heart failure. Clinical findings consistent with rales and pulmonary edema. Will gently diurese her with Lasix 20 mg IV b.i.d.. Strict intake and output chart needs to be pursued. Sinus tachycardia is a compensatory mechanism due to poor LV systolic function at this point time and would avoid using beta blockers to prevent further worsening of her cardiac output and worsened clinical outcome at this point in time. Will slowly introduce beta-blockers once reached euvolemic state. Add low-dose valsartan therapy for afterload reduction with 20 mg b.i.d. of valsartan. Will gradually uptitrate. Will slowly add other neurohormonal modulation depending on the response to treatment. After discussing about the diagnosis and LV function, she got very anxious. Did provide her with education and will provide her with reading materials about the same. The nurse was present during the entire visit. She does say that her brother has some cardiac history, although she is not aware of it. Possibility of genetic cardiomyopathy is likely. She also will require other workup including ischemic workup most likely cardiac catheterization with hemodynamic evaluation as well as cardiac MRI. Etiology of her cardiomyopathy is not clear at this point in time. Will require workup as mentioned above. Including sleep study. Management of heart failure was discussed again in details. She showed understanding. Will follow with you closely. Greater than 40 minutes was spent in managing her complex care. Procedures Date of Service Date of Service: 03/01/21
[2021-03-01] MEDS: Valsartan 40 MG TABLET 20 MG PO (11:35)
[2021-03-01] MEDS: Furosemide 20 MG/2 ML VIAL IVPUSH ×2 (11:36→21:49)
[2021-03-01 15:17] LABS: Amphetamine Screen Urine Not Detected (Not Detect); Barbiturates, Urine Not Detected (Not Detect); Benzodiazepines Screen Urine Not Detected (Not Detect); Cannabinoid Screen Urine Not Detected (Not Detect); Cocaine Screen Urine Not Detected (Not Detect); Opiate Screen Urine Not Detected (Not Detect); Phencyclidine Screen Urine Not Detected (Not Detect)
[2021-03-02] VITALS (8 sets, daily range): BP systolic 97–119; BP diastolic 61–88; PULSE 94–111; RESP 18–28; TEMP 35.9–36.6; O2SAT 92–99; BMI 33.5
[2021-03-02] MEDS: Heparin Sodium,Porcine 5,000 UNIT/ML VIAL 5000 UNIT SUBCUT ×3 (00:16→23:55)
[2021-03-02] MEDS: Magnesium Hydrox/Alum Hydrox 30 ML ORAL.SUSP 15 ML PO ×2 (06:25→10:28)
[2021-03-02 06:27] LABS: Hematocrit 37.4 % (37-47); Mean Corpuscular HGB Conc 32.1 g/dl (31.0-35.0); Mean Corpuscular Hemoglobin 29.9 pg (27.0-33.0); Mean Platelet Volume 11.2 fL (9.4-12.3); NRBC Pct Auto 1.2 /100WBC (0.0-0.2); Platelet Count 272 X10*3/uL (160-400); Red Blood Count 4.02 X10*6/uL (4.20-5.50); Red Cell Distribution Width 14.1 % (11.0-16.0); White Blood Count 13.3 X10*3/uL (4.8-10.8)
[2021-03-02 07:13] LABS: Alanine Aminotransferase 178 U/L (0-31); Albumin Level 3.8 g/dL (3.5-5.0); Alkaline Phosphatase 100 U/L (39-117); Anion Gap 13 (12-20); Aspartate Amino Transferase 85 U/L (5-31); Bilirubin Direct 0.2 mg/dL (0.0-0.5); Bilirubin Total 0.5 mg/dL (0.0-1.0); Blood Urea Nitrogen 22 mg/dL (9-16); Calcium 9.1 mg/dL (8.4-10.2); Carbon Dioxide 25 mmol/L (22-29); Chloride 106 mmol/L (96-108); Creatinine Clr Calc Pharmacy 79.2; Estimated Glomerular Filt Rate > 60; Glucose Random 98 mg/dL (60-115); Potassium 4.3 mmol/L (3.3-5.1); Sodium 140 mmol/L (135-145)
[2021-03-02 08:21] LABS: ~Hepatitis A Antibody IgM Nonreactive (Nonreactive)
[2021-03-02] MEDS: 0.9 % Sodium Chloride Flush 3 ML SYRINGE IVFLUSH (09:10)
[2021-03-02] MEDS: Furosemide 20 MG/2 ML VIAL IVPUSH ×2 (10:28→23:54)
--- NOTE | 2021-03-02 11:17 | P.PNCA_ITS ---
Subjective Subjective Date of Service: 03/02/21 Principal diagnosis: acute systolic heart failure Interval history: patient says her breathing is better. Abdominal distention/discomfort is better. She has a negative balance of 1100 cc. She is tolerating well certain very low-dose at this time. Denies any lightheadedness. No arrhythmias noted overnight. Review of Systems Constitutional: Denies chills, Reports fatigue, Denies fever(s) and Reports malaise Cardiovascular: Reports no additional cardiovascular complaints and Reports dyspnea (Improving) Respiratory: Reports dyspnea (Improving) Gastrointestinal: Reports no additional gastrointestinal complaints Genitourinary: Reports no additional female genitourinary complaints Reports system reviewed and no additional complaints, except as documented Psychiatric: Reports no additional psychiatric complaints Endocrine: Reports no additional endocrine complaints and Reports fatigue Physical Exam Vital Signs: Last Vital Signs Temp 97.8 F 03/02/21 08:00 Pulse 111 H 03/02/21 08:00 Resp 20 03/02/21 08:00 BP 115/72 03/02/21 08:00 Pulse Ox 96 03/02/21 08:00 Body Mass Index 33.5 Const General: cooperative, comfortable, no acute distress, alert and awake Nutritional Appearance: obese Orientation/consciousness: patient oriented x3 Neck Neck: Yes trachea midline, Yes supple and Yes JVD Resp Effort & Inspection: normal respiratory effort Auscultation: crackles bilateral other (Occasional), no wheezes and diminished lung sounds Cardio Jugular venous distension: JVD Palpation: abnormal PMI Rate: regular rate and tachycardic Rhythm: regular rhythm Heart sounds: S1 normal heart sound present and S2 normal heart sound present GI Auscultation: normal bowel sounds Skin General skin exam: no rashes or lesions noted Neuro General: patient oriented x3 Extrem General: Yes no clubbing, cyanosis or edema Results Labs and Meds Result diagrams: 03/02/21 05:17 03/02/21 05:17 Lab results: Laboratory Results - last 24 hr 02/27/21 03/01/21 03/02/21 06:21 Unknown 05:17 WBC 13.3 H RBC 4.02 L Hgb 12.0 Hct 37.4 MCV 93.0 MCH 29.9 MCHC 32.1 RDW 14.1 Plt Count 272 MPV 11.2 Absolute Nucleated RBC 0.160 H Nucleated RBC % (auto) 1.2 H Sodium Potassium Chloride Carbon Dioxide Anion Gap BUN Creatinine Estim Creat Clear Calc Estimated GFR Random Glucose Calcium Total Bilirubin Direct Bilirubin AST ALT Alkaline Phosphatase Total Protein Albumin Urine Opiates Screen Not Detected Ur Barbiturates Screen Not Detected Ur Phencyclidine Scrn Not Detected Ur Amphetamines Screen Not Detected U Benzodiazepines Scrn Not Detected Urine Cocaine Screen Not Detected U Marijuana (THC) Screen Not Detected Hepatitis A IgM Ab Nonreactive 03/02/21 05:17 WBC RBC Hgb Hct MCV MCH MCHC RDW Plt Count MPV Absolute Nucleated RBC Nucleated RBC % (auto) Sodium 140 Potassium 4.3 Chloride 106 Carbon Dioxide 25 Anion Gap 13 BUN 22 H Creatinine 0.99 Estim Creat Clear Calc 79.2 Estimated GFR > 60 Random Glucose 98 Calcium 9.1 Total Bilirubin 0.5 Direct Bilirubin 0.2 AST 85 H ALT 178 H Alkaline Phosphatase 100 D Total Protein 6.0 L Albumin 3.8 Urine Opiates Screen Ur Barbiturates Screen Ur Phencyclidine Scrn Ur Amphetamines Screen U Benzodiazepines Scrn Urine Cocaine Screen U Marijuana (THC) Screen Hepatitis A IgM Ab Progress Note: A&P Assessment and plan (1) Acute systolic heart failure: Status: Acute Assessment and Plan: Acute systolic heart failure with atypical presentation. Will repeat chest x- ray today to evaluate for improvement in infiltrates. Continue IV diuresis with Lasix 20 mg IV b.i.d.. Strict intake and output chart needs to be pursued. Will up titrate valsartan to 40 mg b.i.d.. Hold off on beta-zachariah therapy as of yet. Will require further workup for her cardiomyopathy which will be pursued as outpatient. Advised to ambulate today. CHF education to be provided today. Trend BNP today. Will follow with the patient. Fall Risk Details Current Medications: Current Medications Generic Name Dose Route Start Last Admin Trade Name Freq PRN Reason Stop Dose Admin Acetaminophen 650 mg 02/27/21 00:28 Acetaminophen 325 Mg Tablet PO Q6H PRN Pain, Mild (Pain Scale 1-3) Al Hydroxide/Mg Hydroxide 15 ml 02/28/21 00:30 03/02/21 10:28 Magnesium Hydrox/Alum Hydrox 30 Ml Oral.Susp PO 15 ml Q4H PRN Administration Heartburn Albuterol Sulfate 1 puff 02/27/21 07:51 02/27/21 08:21 Albuterol Sulfate 90 Mcg 8 Gm Inhaler INHALE 1 puff Q4H PRN Administration sob Albuterol/Ipratropium 3 ml 02/28/21 05:26 02/28/21 16:13 Albuterol/Iprat 2.5/0.5mg 3 Ml Ampul.Neb INHALE 3 ml RQ4H PRN Administration Shortness of Breath/Wheezing Docusate Sodium 100 mg 02/27/21 00:28 Docusate Sodium 100 Mg Capsule PO DAILY PRN Constipation Furosemide 20 mg 03/01/21 11:00 03/02/21 10:28 Furosemide 20 Mg/2 Ml Vial IVPUSH 20 mg Q12H ARMANDO Administration Protocol Heparin Sodium (Porcine) 5,000 unit 02/27/21 00:28 03/02/21 00:16 Heparin Sodium,Porcine 5,000 Unit/Ml Vial SUBCUT 5,000 unit Q12H ARMANDO Administration Hydroxyzine HCl 25 mg 02/28/21 19:45 03/01/21 10:24 Hydroxyzine Hcl 25 Mg Tablet PO 25 mg Q6H PRN Administration anxiety/restlessness Lidocaine 1 patch 02/27/21 09:00 03/01/21 08:14 Lidocaine 4 % Patch Adh..Patch TRANSDERMA 1 patch DAILY ARMANDO Administration Protocol Lidocaine 1 patch 02/28/21 09:00 03/02/21 08:21 Lidocaine 4 % Patch Adh..Patch TRANSDERMA Not Given DAILY [facility] Protocol Ondansetron HCl 4 mg 02/27/21 00:28 Ondansetron Hcl 4 Mg/2 Ml Vial IVPUSH Q8H PRN Nausea and Vomiting Sodium Chloride 3 ml 02/27/21 00:28 03/02/21 09:10 0.9 % Sodium Chloride Flush 3 Ml Syringe IVFLUSH 3 ml QSHIFT ARMANDO Administration Tizanidine HCl 4 mg 02/27/21 00:28 Tizanidine Hcl 4 Mg Tablet PO TID PRN muscle spasticity Zolpidem Tartrate 5 mg 02/27/21 21:54 03/01/21 01:20 Zolpidem Tartrate 5 Mg Tablet PO 5 mg BEDTIME PRN Administration Insomnia Time Spent With Patient Time: Total time spent is greater than 50% in coordination of care (as documented) at patient's floor/unit and/or counseling patient: Time with patient: 15 - 24 minutes Progress Note: Quality Stroke Does the patient have a stroke diagnosis?: No Procedures Date of Service Date of Service: 03/02/21
[2021-03-02] MEDS: Valsartan 40 MG TABLET PO ×2 (12:21→21:21)
[2021-03-02] MEDS: Omeprazole 40 MG CAPSULE.DR PO (13:55)
--- NOTE | 2021-03-02 14:06 | P.PNIM_ITS ---
Subjective Subjective Date of Service: 03/02/21 Interval History: sob improving Cardiovascular Cardiovascular: Reports no additional cardiovascular complaints Respiratory Respiratory: Reports no additional respiratory complaints Physical Exam Vital Signs: Vital Signs: Last Vital Signs Temp 97.5 F 03/02/21 11:22 Pulse 102 H 03/02/21 12:21 Resp 20 03/02/21 11:22 BP 119/79 03/02/21 12:21 Pulse Ox 97 03/02/21 11:22 Body Mass Index 33.5 General: AO X 3, no acute distress Resp: Crackles CVS: S1,S2,RRR, jvd GI: soft, non tender, non distended Neuro: motor grossly intact Psych: appropriate affect Objective Data Current Medications Generic Name Dose Route Start Last Admin Trade Name Freq PRN Reason Stop Dose Admin Acetaminophen 650 mg 02/27/21 00:28 Acetaminophen 325 Mg Tablet PO Q6H PRN Pain, Mild (Pain Scale 1-3) Al Hydroxide/Mg Hydroxide 15 ml 02/28/21 00:30 03/02/21 10:28 Magnesium Hydrox/Alum Hydrox 30 Ml Oral.Susp PO 15 ml Q4H PRN Administration Heartburn Albuterol Sulfate 1 puff 02/27/21 07:51 02/27/21 08:21 Albuterol Sulfate 90 Mcg 8 Gm Inhaler INHALE 1 puff Q4H PRN Administration sob Albuterol/Ipratropium 3 ml 02/28/21 05:26 02/28/21 16:13 Albuterol/Iprat 2.5/0.5mg 3 Ml Ampul.Neb INHALE 3 ml RQ4H PRN Administration Shortness of Breath/Wheezing Docusate Sodium 100 mg 02/27/21 00:28 Docusate Sodium 100 Mg Capsule PO DAILY PRN Constipation Furosemide 20 mg 03/01/21 11:00 03/02/21 10:28 Furosemide 20 Mg/2 Ml Vial IVPUSH 20 mg Q12H ARMANDO Administration Protocol Heparin Sodium (Porcine) 5,000 unit 02/27/21 00:28 03/02/21 12:22 Heparin Sodium,Porcine 5,000 Unit/Ml Vial SUBCUT 5,000 unit Q12H ARMANDO Administration Hydroxyzine HCl 25 mg 02/28/21 19:45 03/01/21 10:24 Hydroxyzine Hcl 25 Mg Tablet PO 25 mg Q6H PRN Administration anxiety/restlessness Lidocaine 1 patch 02/27/21 09:00 03/01/21 08:14 Lidocaine 4 % Patch Adh..Patch TRANSDERMA 1 patch DAILY ARMANDO Administration Protocol Lidocaine 1 patch 02/28/21 09:00 03/02/21 08:21 Lidocaine 4 % Patch Adh..Patch TRANSDERMA Not Given DAILY [facility] Protocol Omeprazole 40 mg 03/02/21 13:05 03/02/21 13:55 Omeprazole 40 Mg Capsule.Dr PO 40 mg DAILY@0630 ARMANDO Administration Ondansetron HCl 4 mg 02/27/21 00:28 Ondansetron Hcl 4 Mg/2 Ml Vial IVPUSH Q8H PRN Nausea and Vomiting Sodium Chloride 3 ml 02/27/21 00:28 03/02/21 09:10 0.9 % Sodium Chloride Flush 3 Ml Syringe IVFLUSH 3 ml QSHIFT ARMANDO Administration Tizanidine HCl 4 mg 02/27/21 00:28 Tizanidine Hcl 4 Mg Tablet PO TID PRN muscle spasticity Valsartan 40 mg 03/02/21 11:25 03/02/21 12:21 Valsartan 40 Mg Tablet PO 40 mg BID ARMANDO Administration Protocol Zolpidem Tartrate 5 mg 02/27/21 21:54 03/01/21 01:20 Zolpidem Tartrate 5 Mg Tablet PO 5 mg BEDTIME PRN Administration Insomnia Labs CBC & Chem 7: 03/02/21 05:17 03/02/21 05:17 Labs: Laboratory Results - last 24 hr 02/27/21 03/01/21 03/02/21 06:21 Unknown 05:17 WBC 13.3 H RBC 4.02 L Hgb 12.0 Hct 37.4 MCV 93.0 MCH 29.9 MCHC 32.1 RDW 14.1 Plt Count 272 MPV 11.2 Absolute Nucleated RBC 0.160 H Nucleated RBC % (auto) 1.2 H Sodium Potassium Chloride Carbon Dioxide Anion Gap BUN Creatinine Estim Creat Clear Calc Estimated GFR Random Glucose Calcium Total Bilirubin Direct Bilirubin AST ALT Alkaline Phosphatase Total Protein Albumin Urine Opiates Screen Not Detected Ur Barbiturates Screen Not Detected Ur Phencyclidine Scrn Not Detected Ur Amphetamines Screen Not Detected U Benzodiazepines Scrn Not Detected Urine Cocaine Screen Not Detected U Marijuana (THC) Screen Not Detected Hepatitis A IgM Ab Nonreactive 03/02/21 05:17 WBC RBC Hgb Hct MCV MCH MCHC RDW Plt Count MPV Absolute Nucleated RBC Nucleated RBC % (auto) Sodium 140 Potassium 4.3 Chloride 106 Carbon Dioxide 25 Anion Gap 13 BUN 22 H Creatinine 0.99 Estim Creat Clear Calc 79.2 Estimated GFR > 60 Random Glucose 98 Calcium 9.1 Total Bilirubin 0.5 Direct Bilirubin 0.2 AST 85 H ALT 178 H Alkaline Phosphatase 100 D Total Protein 6.0 L Albumin 3.8 Urine Opiates Screen Ur Barbiturates Screen Ur Phencyclidine Scrn Ur Amphetamines Screen U Benzodiazepines Scrn Urine Cocaine Screen U Marijuana (THC) Screen Hepatitis A IgM Ab Quality Stroke Does the patient have a stroke diagnosis?: No VTE Prior VTE?: No VTE Risk Level:: Medical - moderate - high VTE Device Contraindication: Treatment Not Indicated VTE Drug Contraindication: N/A - Med Ordered Assessment and Plan (1) Elevated LFTs: Status: Acute (2) Dyspnea: Status: Acute (3) Multifocal pneumonia: Status: Acute Assessment and Plan: 40F presented wtih sob acute systolic CHF pneuomonia and covid ruled out dc decadron, antibiotics continue lasix, monitor electrolytes, bnp increased diovan to 40mg bid hold off on beta zachariah until euvolemic outpatient ischemic work up dc adipex transaminitis hepatic congestion vs NAFLD weight loss recommended
[2021-03-02 14:20] LABS: B Type Natriuretic Peptide 1155 pg/mL (<100)
[2021-03-03] MEDS: 0.9 % Sodium Chloride Flush 3 ML SYRINGE IVFLUSH ×2 (01:34→08:43)
[2021-03-03 03:27] VITALS: BP 106/66; PULSE 92; RESP 18; TEMP 36.4; O2SAT 92
[2021-03-03 05:24] VITALS: BMI 33.7
[2021-03-03] MEDS: Omeprazole 40 MG CAPSULE.DR PO (06:01)
[2021-03-03 06:54] LABS: Hematocrit 36.5 % (37-47); Hemoglobin 11.7 g/dl (12.0-16.0); Mean Corpuscular HGB Conc 32.1 g/dl (31.0-35.0); Mean Corpuscular Hemoglobin 29.6 pg (27.0-33.0); Mean Corpuscular Volume 92.4 fL (80-98); Mean Platelet Volume 11.1 fL (9.4-12.3); Platelet Count 259 X10*3/uL (160-400); Red Blood Count 3.95 X10*6/uL (4.20-5.50); Red Cell Distribution Width 13.9 % (11.0-16.0); White Blood Count 11.9 X10*3/uL (4.8-10.8)
[2021-03-03 07:05] VITALS: BP 102/72; PULSE 88; RESP 18; TEMP 36.8; O2SAT 99
[2021-03-03 07:20] LABS: NRBC Pct Auto 1.5 /100WBC (0.0-0.2)
[2021-03-03 07:26] VITALS: BP 112/77; PULSE 97; RESP 18; TEMP 37; O2SAT 95
[2021-03-03 07:40] LABS: B Type Natriuretic Peptide 683 pg/mL (<100)
[2021-03-03 08:20] LABS: Alanine Aminotransferase 147 U/L (0-31); Albumin Level 3.6 g/dL (3.5-5.0); Alkaline Phosphatase 93 U/L (39-117); Anion Gap 12 (12-20); Aspartate Amino Transferase 44 U/L (5-31); Bilirubin Direct 0.3 mg/dL (0.0-0.5); Bilirubin Total 0.7 mg/dL (0.0-1.0); Blood Urea Nitrogen 23 mg/dL (9-16); Calcium 8.2 mg/dL (8.4-10.2); Carbon Dioxide 26 mmol/L (22-29); Chloride 105 mmol/L (96-108); Creatinine Clr Calc Pharmacy 71.4; Estimated Glomerular Filt Rate 53; Glucose Fasting 80 mg/dL (60-99); Magnesium 2.4 mg/dL (1.6-2.6); Sodium 139 mmol/L (135-145); Total Protein 5.7 g/dL (6.5-8.0)
[2021-03-03 08:43] VITALS: BP 112/77; PULSE 97
[2021-03-03] MEDS: Valsartan 40 MG TABLET PO (08:43)
[2021-03-03] MEDS: Furosemide 20 MG/2 ML VIAL IVPUSH (08:44)
[2021-03-03] MEDS: Lidocaine 4 % Patch ADH..PATCH 1 PATCH TRANSDERMA (09:00)
--- NOTE | 2021-03-03 09:18 | P.PNCA_ITS ---
Subjective Subjective Date of Service: 03/03/21 <GRACIE Hart - Last Filed: 03/03/21 10:02> 03/03/21 <Payam Aviles MD - Last Filed: 03/03/21 11:32> Principal diagnosis: acute systolic heart failure, CMP <GRACIE Hart - Last Filed: 03/03/21 10:02> Interval history: cardiology follow up for the above. Seen [place] [address] [facility] [place] interpretor. Today she reports feeling good. She feels ready to be discharged. Breathing is normal. Slept well. Denies chest pains, heart palpitations. No leg edema. Has no questions about diagnosis. Reports that she is moving to [place] in 2 months. <GRACIE Hart - Last Filed: 03/03/21 10:02> Review of Systems Review of Systems as above <GRACIE Hart - Last Filed: 03/03/21 10:02> Yes all other systems are reviewed and are negative <GRACIE Hart - Last Filed: 03/03/21 10:02> Physical Exam Vital Signs: Last Vital Signs Temp 98.6 F 03/03/21 07:26 Pulse 97 03/03/21 08:43 Resp 18 03/03/21 07:26 BP 112/77 03/03/21 08:43 Pulse Ox 95 03/03/21 07:26 Body Mass Index 33.7 <GRACIE Hart - Last Filed: 03/03/21 10:02> Const General: cooperative, healthy appearing, no acute distress, alert and awake <GRACIE Hart - Last Filed: 03/03/21 10:02> Orientation/consciousness: patient oriented x3 <GRACIE Hart - Last Filed: 03/03/21 10:02> Neck Other: thyroid goiter <GRACIE Hart Last Filed: 03/03/21 10:02> Neck: Yes no JVD <GRACIE Hart - Last Filed: 03/03/21 10:02> Resp Effort & Inspection: normal respiratory effort, able to speak in complete sentences and not labored <MALCOM HartC - Last Filed: 03/03/21 10:02> Auscultation: clear to auscultation bilaterally, no crackles, no rales, no rhonchi and no wheezes <MALCOM Hart - Last Filed: 03/03/21 10:02> Cardio Palpation: normal PMI <MALCOM Hart - Last Filed: 03/03/21 10:02> Rate: regular rate <MALCOM Hart - Last Filed: 03/03/21 10:02> Rhythm: regular rhythm <MALCOM Hart - Last Filed: 03/03/21 10:02> Heart sounds: S1 normal heart sound present and S2 normal heart sound present <MALCOM Hart - Last Filed: 03/03/21 10:02> Peripheral pulses: Peripheral pulses 2+ throughout <MALCOM Hart - Last Filed: 03/03/21 10:02> GI Inspection: Yes normal to inspection <Kylah Hanson NP - Last Filed: 03/03/21 10:02> Neuro General: patient oriented x3 <MALCOM Hart - Last Filed: 03/03/21 10:02> Extrem General: Yes normal to inspection and No edema <MALCOM Hart - Last Filed: 03/03/21 10:02> Results Labs and Meds Result diagrams: : 03/03/21 05:18 03/03/21 05:18 <MALCOM Hart - Last Filed: 03/03/21 10:02> Lab results: Laboratory Results - last 24 hr 03/02/21 03/03/21 03/03/21 12:47 05:18 05:18 WBC 11.9 H RBC 3.95 L Hgb 11.7 L Hct 36.5 L MCV 92.4 MCH 29.6 MCHC 32.1 RDW 13.9 Plt Count 259 MPV 11.1 Absolute Nucleated RBC 0.180 H Nucleated RBC % (auto) 1.5 H Sodium 139 Potassium 4.0 Chloride 105 Carbon Dioxide 26 Anion Gap 12 BUN 23 H Creatinine 1.13 Estim Creat Clear Calc 71.4 Estimated GFR 53 Fasting Glucose 80 Calcium 8.2 L D Magnesium 2.4 Total Bilirubin 0.7 Direct Bilirubin 0.3 AST 44 H D ALT 147 H Alkaline Phosphatase 93 B-Natriuretic Peptide 1155 H Total Protein 5.7 L Albumin 3.6 03/03/21 05:18 WBC RBC Hgb Hct MCV MCH MCHC RDW Plt Count MPV Absolute Nucleated RBC Nucleated RBC % (auto) Sodium Potassium Chloride Carbon Dioxide Anion Gap BUN Creatinine Estim Creat Clear Calc Estimated GFR Fasting Glucose Calcium Magnesium Total Bilirubin Direct Bilirubin AST ALT Alkaline Phosphatase B-Natriuretic Peptide 683 H Total Protein Albumin <GRACIE Hart - Last Filed: 03/03/21 10:02> Progress Note: A&P Assessment and plan (1) Acute systolic heart failure: Status: Acute <GRACIE Hart - Last Filed: 03/03/21 10:02> Assessment and Plan: Admit with sob. PNA and COVID ruled out. BNP 683. Echo showed EF 10- 15%, mild MR, mild to mod TR. Treated for acute systolic HF. Diuresed with IV Lasix with clinical improvement in condition. Valsartan added for neurohormonal modulation. Initially tachycardiac which was compensatory to HF. Now Tele shows SR, rate 88-90s. Euvolemic on exam. Will start on Carvedilol 3.125mg bid. Will change IV Lasix to 40mg po daily. Continue Valsartan and we will plan to start Entresto as outpt. Will check CXR today and add BNP on to am labs. If no significant findings on these, she may be discharged from a cardiology perspective. We will arrange for outpt cardiac cath, cardiac MRI, sleep study a nd cardiology follow up. She reports moving to [place] in 2 months. Instructed to work on finding cardiology provider in that area. CHF education reviewed with her and she states understanding. <GRACIE Hart - Last Filed: 03/03/21 10:02> Patient was seen and examined. Case discussed with Kylah. Patient is feeling extremely well and walked around the [place] without any restriction. Acute systolic heart failure secondary to cardiomyopathy. Patient ready for discharge today. Switch to oral Lasix 40 mg daily. Will add carvedilol to her regimen. Continue valsartan. As outpatient will switch her to Entresto therapy as long as the blood pressure is tolerating. Advised to monitor for blood pressure at home. Advised heart failure measures including daily weight monitoring and avoidance of salt loading. Outpatient cardiac rehabilitation. Will pursue outpatient cardiac workup including sleep study. Will see her in the clinic in 7-10 days. Thank you for allowing us to partake in the care <Payam Aviles MD - Last Filed: 03/03/21 11:32> (2) Cardiomyopathy: Status: Acute <GRACIE Hart - Last Filed: 03/03/21 10:02> Assessment and Plan: New finding as above <GRACIE Hart - Last Filed: 03/03/21 10:02> Fall Risk Details Current Medications: Current Medications Generic Name Dose Route Start Last Admin Trade Name Freq PRN Reason Stop Dose Admin Acetaminophen 650 mg 02/27/21 00:28 Acetaminophen 325 Mg Tablet PO Q6H PRN Pain, Mild (Pain Scale 1-3) Al Hydroxide/Mg Hydroxide 15 ml 02/28/21 00:30 03/02/21 10:28 Magnesium Hydrox/Alum Hydrox 30 Ml Oral.Susp PO 15 ml Q4H PRN Administration Heartburn Albuterol Sulfate 1 puff 02/27/21 07:51 02/27/21 08:21 Albuterol Sulfate 90 Mcg 8 Gm Inhaler INHALE 1 puff Q4H PRN Administration sob Albuterol/Ipratropium 3 ml 02/28/21 05:26 02/28/21 16:13 Albuterol/Iprat 2.5/0.5mg 3 Ml Ampul.Neb INHALE 3 ml RQ4H PRN Administration Shortness of Breath/Wheezing Docusate Sodium 100 mg 02/27/21 00:28 Docusate Sodium 100 Mg Capsule PO DAILY PRN Constipation Furosemide 20 mg 03/01/21 11:00 03/03/21 08:44 Furosemide 20 Mg/2 Ml Vial IVPUSH 20 mg Q12H ARMANDO Administration Protocol Heparin Sodium (Porcine) 5,000 unit 02/27/21 00:28 03/02/21 23:55 Heparin Sodium,Porcine 5,000 Unit/Ml Vial SUBCUT 5,000 unit Q12H ARMANDO Administration Hydroxyzine HCl 25 mg 02/28/21 19:45 03/01/21 10:24 Hydroxyzine Hcl 25 Mg Tablet PO 25 mg Q6H PRN Administration anxiety/restlessness Lidocaine 1 patch 02/27/21 09:00 03/01/21 08:14 Lidocaine 4 % Patch Adh..Patch TRANSDERMA 1 patch DAILY ARMANDO Administration Protocol Lidocaine 1 patch 02/28/21 09:00 03/03/21 08:42 Lidocaine 4 % Patch Adh..Patch TRANSDERMA Not Given DAILY ARMANDO Protocol Omeprazole 40 mg 03/02/21 13:05 03/03/21 06:01 Omeprazole 40 Mg Capsule.Dr PO 40 mg DAILY@0630 ARMANDO Administration Ondansetron HCl 4 mg 02/27/21 00:28 Ondansetron Hcl 4 Mg/2 Ml Vial IVPUSH Q8H PRN Nausea and Vomiting Sodium Chloride 3 ml 02/27/21 00:28 03/03/21 08:43 0.9 % Sodium Chloride Flush 3 Ml Syringe IVFLUSH 3 ml QSHIFT ARMANDO Administration Tizanidine HCl 4 mg 02/27/21 00:28 Tizanidine Hcl 4 Mg Tablet PO TID PRN muscle spasticity Valsartan 40 mg 03/02/21 11:25 03/03/21 08:43 Valsartan 40 Mg Tablet PO 40 mg BID ARMANDO Administration Protocol Zolpidem Tartrate 5 mg 02/27/21 21:54 03/01/21 01:20 Zolpidem Tartrate 5 Mg Tablet PO 5 mg BEDTIME PRN Administration Insomnia <GRACIE Hart - Last Filed: 03/03/21 10:02> Time Spent With Patient Time: Total time spent is greater than 50% in coordination of care (as documented) at patient's floor/unit and/or counseling patient: <GRACIE Hart - Last Filed: 03/03/21 10:02> Time with patient: 15 - 24 minutes <GRACIE Hart - Last Filed: 03/03/21 10:02> Progress Note: Quality Stroke Does the patient have a stroke diagnosis?: No <GRACIE Hart Last Filed: 03/03/21 10:02> Procedures Date of Service Date of Service: 03/03/21 <GRACIE Hart - Last Filed: 03/03/21 10:02>
--- NOTE | 2021-03-03 09:51 | MHC.CM.PN ---
Female DX Pneumonia/Covid DP home no services with family transport. CM will follow for a change in needs at discharge.
[2021-03-03 11:00] VITALS: BP 91/57; PULSE 98; RESP 20; TEMP 36.8; O2SAT 98
--- NOTE | 2021-03-03 12:27 | P.DS_ITS ---
DS: Providers Provider Date of Service: 03/03/21 Date of admission: 02/26/21 23:42 Primary care physician: Sandi Rivas MD Consults: 02/27/21 00:28 Consult to Infectious Diseases Routine Consulting Provider: Swapna Estrella Reason for consultation: COVID PNA Has provider been notified: No 03/01/21 09:24 Consult to Cardiology Routine Consulting Provider: Payam Aviles Reason for consultation: elevated troponins , sob , low ef Has provider been notified: No DS: Diagnosis Discharge Diagnosis (1) Acute systolic heart failure: Status: Acute DS: Medications Discharge Medications Home Medications: Home Medications Medication Instructions Recorded Confirmed albuterol sulfate [ProAir HFA] 2 puff PO Q4-6H PRN 02/27/21 02/27/21 Previous Rx's Medication Instructions Recorded inhalational spacing device #1 ea 02/08/21 tizanidine 4 mg tablet 4 mg PO TID PRN 30 Days #90 tab 02/08/21 carvedilol 3.125 mg PO BID #60 tab 03/03/21 furosemide 40 mg PO DAILY #30 tab 03/03/21 omeprazole 40 mg PO DAILY@0630 #30 cap 03/03/21 valsartan 40 mg PO BID #60 tab 03/03/21 DS: Summary Hospital Course Hospital Course: patient was admitted for shortness of breath initially thought to be due to multifocal pneumonia or covid. however, this was ruled out. patient had echo which revealed severe global hypokinesis, EF 10-15%, making respiratory findings most consistent with acute systolic chf. patient was diuresed with iv lasix and pulmonary edema improved as did her symptoms. she was seen by cardiology who started her on diovan, carvedilol, and transitioned to oral lasix. she will be discharged home and follow up closely with cardiology for further testing (sleep apnea, ischemic work up) and titration of meds. Time Spent with Patient Time attestation: Total time spent providing and/or coordinating discharge services: Discharge coordination time: Greater than 30 minutes Quality: Stroke Does the patient have a stroke diagnosis?: No Physical Exam Vital Signs: Vital Signs: Last Vital Signs Temp 98.3 F 03/03/21 11:00 Pulse 98 03/03/21 11:00 Resp 20 03/03/21 11:00 BP 91/57 L 07/22/21 11:00 Pulse Ox 98 03/03/21 11:00 Body Mass Index 33.7 General: AO X 3, no acute distress Resp: CTA bilateral CVS: S1,S2,RRR GI: soft, non tender, non distended Neuro: motor grossly intact Psych: appropriate affect DS: Data Data Completed and Pending Labs on day of discharge: Laboratory Results - last 24 hr 03/02/21 03/03/21 03/03/21 12:47 05:18 05:18 WBC 11.9 H RBC 3.95 L Hgb 11.7 L Hct 36.5 L MCV 92.4 MCH 29.6 MCHC 32.1 RDW 13.9 Plt Count 259 MPV 11.1 Absolute Nucleated RBC 0.180 H Nucleated RBC % (auto) 1.5 H Sodium 139 Potassium 4.0 Chloride 105 Carbon Dioxide 26 Anion Gap 12 BUN 23 H Creatinine 1.13 Estim Creat Clear Calc 71.4 Estimated GFR 53 Fasting Glucose 80 Calcium 8.2 L D Magnesium 2.4 Total Bilirubin 0.7 Direct Bilirubin 0.3 AST 44 H D ALT 147 H Alkaline Phosphatase 93 B-Natriuretic Peptide 1155 H Total Protein 5.7 L Albumin 3.6 03/03/21 05:18 WBC RBC Hgb Hct MCV MCH MCHC RDW Plt Count MPV Absolute Nucleated RBC Nucleated RBC % (auto) Sodium Potassium Chloride Carbon Dioxide Anion Gap BUN Creatinine Estim Creat Clear Calc Estimated GFR Fasting Glucose Calcium Magnesium Total Bilirubin Direct Bilirubin AST ALT Alkaline Phosphatase B-Natriuretic Peptide 683 H Total Protein Albumin Preliminary micro results at discharge 02/26/21 22:09 Blood Culture - Preliminary Blood - Venous No growth after 48 hours. 02/26/21 22:09 Blood Culture - Preliminary Blood - Venous No growth after 48 hours. Discharge Plan Discharge Patient Disposition: Home, Self-Care Discharge Diagnosis: chf Referrals: Sandi Thayer MD [Primary Care Provider] - 1 Week Discharge Medications: New furosemide 40 mg Tablet 40 mg PO DAILY Qty: 30 RF: 0 omeprazole 40 mg Capsule,Delayed Release(Dr/Ec) 40 mg PO DAILY@0630 Qty: 30 RF: 0 carvedilol 3.125 mg Tablet 3.125 mg PO BID Qty: 60 RF: 0 valsartan 40 mg Tablet 40 mg PO BID Qty: 60 RF: 0 Continued tizanidine 4 mg tablet 4 mg PO TID PRN (Reason: muscle spasticity) 30 Days Qty: 90 RF: 1 albuterol sulfate [ProAir HFA] 90 mcg/actuation HFA aerosol inhaler 2 puff PO Q4-6H PRN (Reason: wheezing) RF: 0 (DME) [employer] MDI Spacer Spacer See Rx Instructions .ROUTE .MEDSUPPLY Qty: 1 RF: 0 Discontinued meloxicam 15 mg tablet 1 tab PO DAILY RF: 0 Discharge Orders: Discharge Order (Routine); Ordered 03/03/21 Ordered By: Quinn Chiang Diet: advance to usual diet and low salt diet Activity on Discharge: As tolerated Stand Alone Forms: Patient Portal Discharge page Care Plan Goals: manage chf Health Concerns: chf Plan of Treatment: medications as prescribed, follow up [facility] cardiology Assessment: see above
--- NOTE | 2021-03-03 12:32 | MHC.CM.PN ---
[id number] DX Covid PNA. Discharge today to home with assist from family. They will provide transportation.
[2021-03-03 13:33] VITALS: BP 99/62; PULSE 103
[2021-03-03] MEDS: carvediloL 3.125 MG TABLET PO (13:33)
== END 2021-03-03 14:12 | disposition home or self-care (01) | DRG 194 ==
LOC: HO.ED 22:56 → HO.EDOVER 02-27 → HO.IMC 02-27 14:50
PROVIDERS: Hospitalist; Internal Medicine; Nurse Practitioner Family; Admitting Provider Internal Medicine; Emergency Provider Internal Medicine; PCP Internal Medicine; Visit Provider Internal Medicine
DX: I50.21 Acute systolic (congestive) heart failure (principal); I42.9 Cardiomyopathy, unspecified; M79.7 Fibromyalgia; Z20.822 Contact with and (suspected) exposure to COVID-19; Z79.899 Other long term (current) drug therapy
CPT/HCPCS: 0241U; 36415; 71046; 71275; 80048; 80053; 80076; 80307; 81001; 81025; 82550; 82728; 83605; 83615; 83690; 83735; 83880; 84145; 84443; 84484; 85025; 85027; 85379; 86140; 86704; 86706; 86709; 86803; 87040; 87340; 87633; 93005; 93306; 94640; 99285; J0456; J0696; J1100; J1200; J1940; J8540; Q9967

== ENCOUNTER 2021-03-09 10:40 | Outpatient (REF) | payer OTHER, SELFPAY ==
[2021-03-09 11:46] LABS: Hematocrit 42.1 % (37-47); Hemoglobin 13.2 g/dl (12.0-16.0); Mean Corpuscular HGB Conc 31.4 g/dl (31.0-35.0); Mean Corpuscular Hemoglobin 29.3 pg (27.0-33.0); Mean Corpuscular Volume 93.3 fL (80-98); Mean Platelet Volume 11.1 fL (9.4-12.3); Platelet Count 271 X10*3/uL (160-400); Red Blood Count 4.51 X10*6/uL (4.20-5.50); Red Cell Distribution Width 14.6 % (11.0-16.0); White Blood Count 7.3 X10*3/uL (4.8-10.8)
[2021-03-09 12:03] LABS: Anion Gap 12 (12-20); Blood Urea Nitrogen 15 mg/dL (9-16); Calcium 9.3 mg/dL (8.4-10.2); Carbon Dioxide 27 mmol/L (22-29); Chloride 103 mmol/L (96-108); Estimated Glomerular Filt Rate 50; Glucose Random 106 mg/dL (60-115); Potassium 4.7 mmol/L (3.3-5.1); Sodium 137 mmol/L (135-145)
[2021-03-09 12:05] LABS: B Type Natriuretic Peptide 711 pg/mL (<100)
== END 2021-03-09 10:41 | disposition home or self-care (01) ==
LOC: HO.LAB 10:40
PROVIDERS: PCP Internal Medicine; Referring Provider Internal Medicine Cardiovascular Disease; Visit Provider Nurse Practitioner Family
DX: I42.9 Cardiomyopathy, unspecified (principal); I50.21 Acute systolic (congestive) heart failure; E66.9 Obesity, unspecified; G47.10 Hypersomnia, unspecified
CPT/HCPCS: 36415; 80048; 83880; 85027; 99212

== ENCOUNTER → 2021-03-16 09:43 | Outpatient (BNVA) | payer OTHER, SELFPAY | PROVIDERS: PCP Internal Medicine; Referring Provider Internal Medicine; Visit Provider Internal Medicine Cardiovascular Disease ==

== ENCOUNTER 2021-03-28 14:48 | Outpatient (REF) | payer OTHER, SELFPAY ==
[2021-03-28 15:43] LABS: Leukocytes Stool Qualitative NEGATIVE (NEGATIVE)
[2021-03-28 15:55] LABS: CDiff Gene PCR NEGATIVE (Negative)
== END 2021-03-28 14:49 | disposition home or self-care (01) ==
LOC: HO.LNP 14:48
PROVIDERS: Visit Provider Internal Medicine
DX: R19.7 Diarrhea, unspecified (principal)
CPT/HCPCS: 87045; 87046; 87329; 87338; 87493; 89055

== ENCOUNTER 2021-04-05 01:08 | Emergency (ER) | payer OTHER, SELFPAY ==
--- NOTE | ~2021-04-05 | CT_ITS ---
EXAMINATION: CT ABDOMEN AND PELVIS WITH CONTRAST CLINICAL INFORMATION: Epigastric pain COMPARISON: None TECHNIQUE: Multidetector volumetric images were obtained from the superior aspect of the liver through the pubic symphysis following administration 85 mL of Omnipaque 350 intravenous contrast. Sagittal and coronal reformatted images were obtained on the technologist's workstation. Oral contrast: No This CT examination was performed using dose optimization techniques as appropriate, variously including the following: *Automated exposure control *Adjustment of mA and/or kV according to patient size (this includes techniques or standardized protocols for targeted exams where dose is matched to indication/reason for exam; i.e. extremities or head) *Use of iterative reconstruction technique DLP: 649 mGy-cm FINDINGS: LUNG BASES: Small right pleural effusion and findings of mild edema. Cardiomegaly. Small pericardial effusion is partially visualized. LIVER, GALLBLADDER, AND BILIARY TREE: The liver is normal in size, shape, and attenuation. No focal hepatic lesion or biliary ductal dilatation is present. There is mild pericholecystic haziness. No densely calcified gallstones are seen. PANCREAS: Unremarkable. SPLEEN: Unremarkable. ADRENAL GLANDS: Unremarkable. KIDNEYS AND URETERS: The kidneys are normal in size, shape, and attenuation. No hydronephrosis, hydroureter, or obstructive calculi seen. No perinephric stranding. BLADDER: Minimally distended and grossly unremarkable. GASTROINTESTINAL TRACT: The small and large bowel are unremarkable. The appendix is unremarkable. No free air is seen. ABDOMINAL WALL: No significant hernia is appreciated. LYMPH NODES: Normal. VASCULAR: Unremarkable. PELVIC VISCERA: There is an approximately 4 cm left adnexal cyst, presumably ovarian. Trace pelvic free fluid is noted. OSSEOUS STRUCTURES: There is mild degenerative change in the spine at L4-L5. CT/CT abdomen pelvis w con IMPRESSION: 1. Mild pericholecystic haziness. Although no densely calcified gallstones are seen, cholecystitis cannot be excluded in the setting of epigastric pain. Correlation with ultrasound is advised. 2. Small right pleural effusion. Cardiomegaly and partially visualized pericardial effusion. Appearance of the lung bases suggests mild edema. 3. Left adnexal cyst measuring 4 cm, presumably ovarian.
[2021-04-05 01:25] VITALS: BP 106/71; PULSE 85; RESP 18; TEMP 36.8; O2SAT 97; BMI 30.9
--- NOTE | 2021-04-05 01:40 | ECG_ITS ---
Test Reason : ABDOMINAL PAIN Blood Pressure : / mmHG Vent. Rate : 088 BPM Atrial Rate : 088 BPM P-R Int : 168 ms QRS Dur : 094 ms QT Int : 386 ms P-R-T Axes : 017 -58 026 degrees QTc Int : 467 ms Normal sinus rhythm Possible Left atrial enlargement Left axis deviation Possible Anterior infarct (cited on or before 26-FEB-2021) T wave abnormality, consider lateral ischemia Abnormal ECG When compared with ECG of 26-FEB-2021 21:57, QRS axis Shifted left Nonspecific T wave abnormality now evident in Inferior leads T wave inversion now evident in Lateral leads Referred By: Willa Lozoya Electronically Signed By:GERHARD JACKSON
[2021-04-05 02:05] LABS: Basophils Percent Auto 0.3 % (0-2); Eosinophils Absolute Auto 0.1 X10*3/uL (0.0-0.4); Eosinophils Percent Auto 0.7 % (0-4); Hematocrit 42.2 % (37-47); Hemoglobin 13.7 g/dl (12.0-16.0); Imm Gran Abs Auto 0.01 X10*3/uL (0.00-0.03); Imm Gran Pct Auto 0.1 % (0.0-0.4); Lymphocytes Absolute Auto 3.5 X10*3/uL (1.2-4.9); Lymphocytes Percent Auto 35.7 % (20-40); MANUAL DIFF FLAG NO; Mean Corpuscular HGB Conc 32.5 g/dl (31.0-35.0); Mean Corpuscular Volume 92.5 fL (80-98); Mean Platelet Volume 10.7 fL (9.4-12.3); Monocytes Absolute Auto 0.7 X10*3/uL (0.1-1.2); Monocytes Percent Auto 6.6 % (2-11); Neutrophils Absolute Auto 5.6 X10*3/uL (2.0-8.3); Neutrophils Percent Auto 56.6 % (45-73); Platelet Count 255 X10*3/uL (160-400); Red Blood Count 4.56 X10*6/uL (4.20-5.50); Red Cell Distribution Width 14.2 % (11.0-16.0); White Blood Count 9.9 X10*3/uL (4.8-10.8)
[2021-04-05 02:06] LABS: Glucose Urine UA NEG (NEG); Leukocyte Esterase Urine NEG (NEG); Nitrite Urine NEG (NEG); Specific Gravity - Urine >= 1.030 (1.005-1.025); UACC Culture Trigger NO; Urine Blood 2+ (NEG); Urine Ketones NEG (NEG); Urine Protein NEG (NEG-TRACE)
[2021-04-05 02:09] LABS: Appearance Urine CLEAR; Color Urine YELLOW; UPreg QC Valid YES; Urine Pregnancy NEGATIVE (NEGATIVE)
[2021-04-05 02:23] VITALS: BP 100/71; PULSE 86; RESP 17; TEMP 36.7; O2SAT 98
--- NOTE | 2021-04-05 02:27 | PC.NURSE ---
optics test technician at bedside for EKG.
[2021-04-05 02:33] LABS: WBC Urine 0 /HPF (0-4)
[2021-04-05 02:34] LABS: Mucus Urine 3+ /LPF; Squamous Epithelial Cell Urine 2+ /LPF
--- NOTE | 2021-04-05 02:34 | ED_ITS ---
HPI - Abdominal Pain General Chief Complaint: Abdominal Pain Stated Complaint: SoB, Stomach Pain Time Seen by Provider: 04/05/21 01:39 Source: patient Mode of arrival: ambulatory Limitations: no limitations History of Present Illness HPI narrative: Patient comes to the emergency room complaining of epigastric pain and bloating. Patient states she has had this for several months. However, today the pain was very intense, could not sleep and came to the emergency room. Patient states that the pain is unrelated to food intake. Patient denies nausea vomiting and diarrhea. Patient states that her primary care physician already started her on omeprazole and sucralfate. However, patient states that she takes only omeprazole daily, she usually forgets to take sucralfate for the entire day for multiple days at the time. Related Data Previous Rx's Medication Instructions Recorded inhalational spacing device #1 ea 02/08/21 (BreatheRite MDI Spacer) omeprazole 40 mg capsule,delayed 40 mg PO DAILY@0630 #30 cap 03/29/21 release sucralfate 1 gram tablet 1 g PO BID 90 Days #180 tab 03/29/21 carvedilol 6.25 mg tablet (Coreg) 6.25 mg PO BID #60 tab 04/04/21 furosemide 40 mg tablet 40 mg PO DAILY 90 Days #90 tab 04/04/21 valsartan 40 mg tablet 40 mg PO BID #60 tab 04/04/21 Allergies Allergy/AdvReac Type Severity Reaction Status Date / Time No Known Allergies Allergy Verified 04/05/21 01:24 Review of Systems Review of Systems Constitutional : No Weight loss, No Fever, No Chills, No Night Sweats, No Fatigue, No Malaise ENT/Mouth : No Hearing loss, No Ear Pain, No Nasal Congestion, No Sinus Pain, No Hoarseness, No sore throat, No Rhinorrhea, No Swallowing Difficulty Eyes: No Eye Pain, No Swelling, No Redness, No Foreign Body, No Discharge, No Vision Changes Cardiovascular : No Chest Pain, No SOB, No Dyspnea on Exertion, No Orthopnea, No Edema, No Palpitations Respiratory : No Cough, No Sputum, No Wheezing, No Smoke Exposure, No Dyspnea Gastrointestinal : No Nausea, No Vomiting, No Diarrhea, No Constipation, co mplaining of epigastric pain, No Hematochezia, No Melena Genitourinary : no irregular bleeding, No Dysuria, No Urinary Frequency, No Hematuria, No Urinary Incontinence, No Urgency, No Flank Pain, No Urinary Flow Changes, No Hesitancy Musculoskeletal : No joint pain, No Myalgias, No Joint Swelling Skin : No Skin Lesions, No rash Neuro : No Weakness, No Numbness, No Paresthesias, No Loss of Consciousness, No Dizziness, No Headache Psych : No Anxiety/Panic, No Depression, No SI/HI/AH/VH, No Social Issues, Heme/Lymph: No Bruising, No Bleeding,No Lymphadenopathy Endocrine : No Polyuria, No Polydipsia, No Temperature Intolerance Physical Exam Vital Signs: Vital Signs: Last Vital Signs Temp 98.0 F 04/05/21 02:23 Pulse 86 04/05/21 02:23 Resp 17 04/05/21 02:23 BP 100/71 04/05/21 02:23 Pulse Ox 98 04/05/21 02:23 Body Mass Index 30.9 Const: Other: Appearance: Alert. Oriented X3. No acute distress. Eyes: Pupils equal, round and reactive to light. ENT: Pharynx normal. Neck: Normal inspection. Neck supple. No lymph nodes noted. No crepitus CVS: Normal heart rate and rhythm. Pulses normal. Normal S1 and S2 Respiratory: No respiratory distress. Breath sounds normal. No Wheezing. No rales Abdomen: Soft , mild pain to palpation over the epigastric area, No rigidity. No distention. Negative for Olea sign, good BS x4 Skin: Skin warm and dry. Normal skin color. Normal skin turgor. Extremities: No lower extremity edema. No lower extremity edema. No La cerations. No Rash Neuro: Oriented X 3. No motor deficit. No sensory deficit. Moving all extermities. No slurred speech. Course Course Course Narrative: At this time, patient states that she does not want any pain medication, declines GI cocktail. I discussed the CT scan with the patient, patient states that she already has an appointment with her clinical account manager, she may need an upper endoscopy. I discussed with the patient that she likely has peptic ulcer versus gastritis. Patient is already taking sucralfate. Discussed with the patient that she has a left ovarian cyst, at this time asymptomatic. I discussed with the patient that she needs to be compliant with her medication as prescribed. MDM - Abdominal Pain Lab Data Result diagrams: 04/05/21 01:59 04/05/21 01:59 Labs: Lab Results 04/05/21 04/05/21 04/05/21 Range/Units 01:59 01:59 01:59 WBC 9.9 (4.8-10.8) X10*3/uL RBC 4.56 (4.20-5.50) X10*6/uL Hgb 13.7 (12.0-16.0) g/dl Hct 42.2 (37-47) % MCV 92.5 (80-98) fL MCH 30.0 (27.0-33.0) pg MCHC 32.5 (31.0-35.0) g/dl RDW 14.2 (11.0-16.0) % Plt Count 255 (160-400) X10*3/uL MPV 10.7 (9.4-12.3) fL Immature Gran % (Auto) 0.1 (0.0-0.4) % Neut % (Auto) 56.6 (45-73) % Lymph % (Auto) 35.7 (20-40) % [place] % (Auto) 6.6 (2-11) % Eos % (Auto) 0.7 (0-4) % Baso % (Auto) 0.3 (0-2) % Lymph # (Auto) 3.5 (1.2-4.9) X10*3/uL [place] # (Auto) 0.7 (0.1-1.2) X10*3/uL Eos # (Auto) 0.1 (0.0-0.4) X10*3/uL Baso # (Auto) 0.0 (0.0-0.2) X10*3/uL Abs Immat Gran (auto) 0.01 (0.00-0.03) X10*3/uL Absolute Neuts (auto) 5.6 (2.0-8.3) X10*3/uL Absolute Nucleated RBC 0.000 (0.0-0.012) X10*3/uL Nucleated RBC % (auto) 0.0 (0.0-0.2) /100WBC Sodium 138 (135-145) mmol/L Potassium 4.6 (3.3-5.1) mmol/L Chloride 105 (96-108) mmol/L Carbon Dioxide 24 (22-29) mmol/L Anion Gap 14 (12-20) BUN 24 H D (9-16) mg/dL Creatinine 1.36 (0.5-1.4) mg/dL Estim Creat Clear Calc 56.9 Estimated GFR 43 Random Glucose 98 (60-115) mg/dL Calcium 9.5 (8.4-10.2) mg/dL Total Bilirubin 0.6 (0.0-1.0) mg/dL Direct Bilirubin 0.3 (0.0-0.5) mg/dL AST 24 D (5-31) U/L ALT 35 H (0-31) U/L Alkaline Phosphatase 71 D (39-117) U/L Total Protein 6.5 (6.5-8.0) g/dL Albumin 4.2 (3.5-5.0) g/dL Lipase 23 (8-78) U/L Urine Color YELLOW Urine Appearance CLEAR Urine pH 6.0 (5.0-8.0) Ur Specific [place] >= 1.030 H (1.005-1.025) Urine Protein NEG (NEG-TRACE) MG/DL Urine Glucose (UA) NEG (NEG) MG/DL Urine Ketones NEG (NEG) MG/DL Urine Blood 2+ H (NEG) Urine Nitrite NEG (NEG) Ur Leukocyte Esterase NEG (NEG) Urine RBC 1-4 (0) /HPF Urine WBC 0 (0-4) /HPF Ur Squamous Epith Cells 2+ /LPF Urine Bacteria NONE /LPF Urine Mucus 3+ /LPF Urine Test (NEGATIVE) 04/05/21 Range/Units 01:59 WBC (4.8-10.8) X10*3/uL RBC (4.20-5.50) X10*6/uL Hgb (12.0-16.0) g/dl Hct (37-47) % MCV (80-98) fL MCH (27.0-33.0) pg MCHC (31.0-35.0) g/dl RDW (11.0-16.0) % Plt Count (160-400) X10*3/uL MPV (9.4-12.3) fL Immature Gran % (Auto) (0.0-0.4) % Neut % (Auto) (45-73) % Lymph % (Auto) (20-40) % [place] % (Auto) (2-11) % Eos % (Auto) (0-4) % Baso % (Auto) (0-2) % Lymph # (Auto) (1.2-4.9) X10*3/uL [place] # (Auto) (0.1-1.2) X10*3/uL Eos # (Auto) (0.0-0.4) X10*3/uL Baso # (Auto) (0.0-0.2) X10*3/uL Abs Immat Gran (auto) (0.00-0.03) X10*3/uL Absolute Neuts (auto) (2.0-8.3) X10*3/uL Absolute Nucleated RBC (0.0-0.012) X10*3/uL Nucleated RBC % (auto) (0.0-0.2) /100WBC Sodium (135-145) mmol/L Potassium (3.3-5.1) mmol/L Chloride (96-108) mmol/L Carbon Dioxide (22-29) mmol/L Anion Gap (12-20) BUN (9-16) mg/dL Creatinine (0.5-1.4) mg/dL Estim Creat Clear Calc Estimated GFR Random Glucose (60-115) mg/dL Calcium (8.4-10.2) mg/dL Total Bilirubin (0.0-1.0) mg/dL Direct Bilirubin (0.0-0.5) mg/dL AST (5-31) U/L ALT (0-31) U/L Alkaline Phosphatase (39-117) U/L Total Protein (6.5-8.0) g/dL Albumin (3.5-5.0) g/dL Lipase (8-78) U/L Urine Color Urine Appearance Urine pH (5.0-8.0) Ur Specific [place] (1.005-1.025) Urine Protein (NEG-TRACE) MG/DL Urine Glucose (UA) (NEG) MG/DL Urine Ketones (NEG) MG/DL Urine Blood (NEG) Urine Nitrite (NEG) Ur Leukocyte Esterase (NEG) Urine RBC (0) /HPF Urine WBC (0-4) /HPF Ur Squamous Epith Cells /LPF Urine Bacteria /LPF Urine Mucus /LPF Urine Test NEGATIVE (NEGATIVE) Imaging Data CT scan - abdomen: Radiologist's impression: FINDINGS: LUNG BASES: Small right pleural effusion and findings of mild edema. Cardiomegaly. Small pericardial effusion is partially visualized.? LIVER, GALLBLADDER, AND BILIARY TREE: The liver is normal in size, shape, and attenuation. No focal hepatic lesion or biliary ductal dilatation is present. There is mild pericholecystic haziness. No densely calcified gallstones are seen.? PANCREAS: Unremarkable.? SPLEEN: Unremarkable.? ADRENAL GLANDS: Unremarkable.? KIDNEYS AND URETERS: The kidneys are normal in size, shape, and attenuation. No hydronephrosis, hydroureter, or obstructive calculi seen. No perinephric stranding. ? BLADDER: Minimally distended and grossly unremarkable.? GASTROINTESTINAL TRACT: The small and large bowel are unremarkable. The appendix is unremarkable. No free air is seen.? ABDOMINAL WALL: No significant hernia is appreciated.? LYMPH NODES: Normal. VASCULAR: Unremarkable. PELVIC VISCERA: There is an approximately 4 cm left adnexal cyst, presumably ovarian. Trace pelvic free fluid is noted. OSSEOUS STRUCTURES: There is mild degenerative change in the spine at L4-L5.? CT/CT abdomen pelvis w con IMPRESSION: 1.? Mild pericholecystic haziness. Although no densely calcified gallstones are seen, cholecystitis cannot be excluded in the setting of epigastric pain. Correlation with ultrasound is advised. 2.? Small right pleural effusion. Cardiomegaly and partially visualized pericardial effusion. Appearance of the lung bases suggests mild edema. 3.? Left adnexal cyst measuring 4 cm, presumably ovarian. Discharge Plan Discharge Clinical Impression: Abdominal pain Qualifiers: Abdominal location: epigastric Qualified Code(s): R10.13 - Epigastric pain Patient Disposition: Home, Self-Care Instructions: Abdominal Pain (ED), Diet for Stomach Ulcers and Gastritis (ED) Additional Instructions: Please follow-up with your primary care physician tomorrow. If you have any worsening or new symptoms, please return to the emergency room or call 911 Prescriptions: No Action sucralfate 1 gram tablet 1 g PO BID 90 Days Qty: 180 RF: 0 omeprazole 40 mg capsule,delayed release(DR/EC) 40 mg PO DAILY@0630 Qty: 30 RF: 0 carvedilol [Coreg] 6.25 mg tablet 6.25 mg PO BID Qty: 60 RF: 1 valsartan 40 mg tablet 40 mg PO BID Qty: 60 RF: 5 furosemide 40 mg tablet 40 mg PO DAILY 90 Days Qty: 90 RF: 0 (DME) BreatheRite MDI Spacer Spacer See Rx Instructions .ROUTE .MEDSUPPLY Qty: 1 RF: 0 PMFSH Past Medical History Medical History Acute systolic heart failure Cardiomyopathy Diarrhea Dyspnea Fibromyalgia GERD (gastroesophageal reflux disease) Goiter Heart failure with reduced ejection fraction Obese Tachycardia Thyroid nodule Surgical History H/O abdominoplasty History of endometrial ablation Hx of tubal ligation S/P thyroid biopsy Family History Family History Father No problems noted. Mother No problems noted. Social History Social History Household Members: Family Housing: House Do you presently have visiting nurse or other home services: No Alcohol intake: current Alcohol intake frequency: a few times a month Patient Tobacco Use Status: Never used Tobacco Advance Directives: No Advance Directives Information Provided: Yes Patient : No service: No Current occupational status: employed Gender identity: Female
[2021-04-05 02:36] LABS: Alanine Aminotransferase 35 U/L (0-31); Albumin Level 4.2 g/dL (3.5-5.0); Alkaline Phosphatase 71 U/L (39-117); Anion Gap 14 (12-20); Aspartate Amino Transferase 24 U/L (5-31); Bilirubin Direct 0.3 mg/dL (0.0-0.5); Bilirubin Total 0.6 mg/dL (0.0-1.0); Blood Urea Nitrogen 24 mg/dL (9-16); Calcium 9.5 mg/dL (8.4-10.2); Carbon Dioxide 24 mmol/L (22-29); Chloride 105 mmol/L (96-108); Creatinine Clr Calc Pharmacy 56.9; Estimated Glomerular Filt Rate 43; Glucose Random 98 mg/dL (60-115); Lipase 23 U/L (8-78); Potassium 4.6 mmol/L (3.3-5.1); Sodium 138 mmol/L (135-145); Total Protein 6.5 g/dL (6.5-8.0)
[2021-04-05] MEDS: iohexoL 350 MG/ML 100 ML INFUS..BTL 85 ML IV (02:50)
[2021-04-05 03:39] VITALS: BP 101/69; PULSE 78; RESP 16; O2SAT 97
== END 2021-04-05 03:42 | disposition home or self-care (01) ==
PROVIDERS: Emergency Provider Emergency Medicine; PCP Internal Medicine
DX: R10.13 Epigastric pain (principal)
CPT/HCPCS: 36415; 74177; 80048; 80076; 81001; 81025; 83690; 85025; 93005; 99284; Q9967

== ENCOUNTER → 2021-04-07 11:36 | Outpatient (BNVA) | payer OTHER, SELFPAY | PROVIDERS: PCP Internal Medicine; Visit Provider Nurse Practitioner | DX: K21.9 Gastro-esophageal reflux disease without esophagitis (principal); R10.13 Epigastric pain; R14.0 Abdominal distension (gaseous) | CPT/HCPCS: 99202 ==

== ENCOUNTER 2021-04-28 08:54 | Outpatient (REF) | payer OTHER, SELFPAY ==
--- NOTE | ~2021-04-28 | US_ITS ---
EXAMINATION: US ABDOMEN COMPLETE CLINICAL INFORMATION: Epigastric pain. COMPARISON: CT abdomen and pelvis 04/05/2021. TECHNIQUE: Real-time imaging of the abdominal viscera. FINDINGS: PANCREAS: The body of the pancreas is normal. The tail the pancreas is not well visualized due to bowel gas. ABDOMINAL AORTA: The proximal, mid, and distal segments are normal in caliber. INFERIOR VENA CAVA: Visualized portions are normal. LIVER: Normal. The liver is normal in size. The liver contour is normal. Parenchymal echogenicity is normal. No focal hepatic lesion. There is no intrahepatic biliary duct dilatation seen. GALLBLADDER: The gallbladder is normal in size. No gallstones are seen. There is focal wall thickening seen at the neck of the gallbladder questionable for biliary sludge or possible polyp. This measures 0.9 cm. This is not appreciated on recent CT scan. The gallbladder wall is otherwise upper normal in thickness measuring 0.3-0.4 cm and may be echogenic. There is no pericholecystic fluid. COMMON BILE DUCT: Normal in caliber measuring 0.3 cm in diameter. RIGHT KIDNEY: Normal. No hydronephrosis. No renal calculi or focal parenchymal lesions. The kidney measures 10.0 cm in maximum dimension. LEFT KIDNEY: Normal. No hydronephrosis. No renal calculi or focal parenchymal lesions. The kidney measures 10.5 cm in maximum dimension. SPLEEN: Normal. The spleen measures 9.4 cm in maximum dimension. FREE FLUID: None. US/US abdomen complete IMPRESSION: Focal wall thickening of the neck of the gallbladder questionable for adenomyomatosis of the gallbladder wall or sludge. No gallstones seen. Upper normal thickness gallbladder wall and question increased echogenicity. If there is clinical suspicion of cholecystitis, HIDA scan would be recommended. Otherwise, six-month follow-up gallbladder ultrasound should be considered.
== END 2021-04-28 08:55 | disposition home or self-care (01) ==
LOC: HO.US 08:54
PROVIDERS: Visit Provider Nurse Practitioner
DX: R10.13 Epigastric pain (principal)
CPT/HCPCS: 76700

== ENCOUNTER → 2021-05-05 10:01 | Outpatient (BNVA) | payer OTHER, SELFPAY | PROVIDERS: PCP Internal Medicine; Visit Provider Nurse Practitioner ==

== ENCOUNTER → 2021-05-09 11:33 | Outpatient (BNVA) | payer OTHER, SELFPAY | PROVIDERS: PCP Internal Medicine; Referring Provider Internal Medicine; Visit Provider Internal Medicine Cardiovascular Disease | DX: I50.20 Unspecified systolic (congestive) heart failure (principal) | CPT/HCPCS: 99212 ==

== ENCOUNTER 2021-05-24 12:06 | Outpatient (REF) | payer OTHER, SELFPAY ==
[2021-05-24 13:03] LABS: Anion Gap 12 (12-20); Blood Urea Nitrogen 15 mg/dL (9-16); Calcium 9.6 mg/dL (8.4-10.2); Carbon Dioxide 25 mmol/L (22-29); Chloride 103 mmol/L (96-108); Estimated Glomerular Filt Rate > 60; Glucose Random 98 mg/dL (60-115); Potassium 4.2 mmol/L (3.3-5.1); Sodium 136 mmol/L (135-145)
[2021-05-24 13:11] LABS: B Type Natriuretic Peptide 685 pg/mL (<100)
== END 2021-05-24 12:07 | disposition home or self-care (01) ==
LOC: HO.LAB 12:06
PROVIDERS: PCP Student in an Organized Health Care Education/Training Program; Visit Provider Internal Medicine Cardiovascular Disease
DX: I50.20 Unspecified systolic (congestive) heart failure (principal)
CPT/HCPCS: 36415; 80048; 83880

== ENCOUNTER → 2021-05-25 13:14 | Outpatient (BNVA) | payer OTHER, SELFPAY | PROVIDERS: PCP Internal Medicine; Referring Provider Internal Medicine; Visit Provider Internal Medicine Cardiovascular Disease | DX: I50.20 Unspecified systolic (congestive) heart failure (principal) | CPT/HCPCS: 99212 ==

== ENCOUNTER → 2021-06-06 08:05 | Outpatient (REF) | payer OTHER, SELFPAY ==
--- NOTE | ~2021-06-06 | NM_ITS ---
EXAMINATION: RADIONUCLIDE SOLID FOOD GASTRIC EMPTYING 4-HOUR STUDY CLINICAL INFORMATION: Abdominal distention (gaseous) COMPARISON: No previous gastric emptying study is available for comparison. TECHNIQUE: A standard meal consisting of 4 oz of Egg Beaters brand tagged was 1.0 mCi Tc-99m Sulfur Colloid, 8 oz water and 2 slices of toast with jelly was administered orally to the patient. Images were obtained using a dual head gamma camera in the anterior and posterior projections over of the stomach immediately post ingestion and at hourly intervals up to 3 hours post ingestion. Images were not obtained at 4 hours due to the minimal retention at 3 hours. The anterior and posterior counts at each time interval were averaged using the geometric mean and expressed as percentage of the immediate post ingestion counts. FINDINGS: There is good visualization of activity in the stomach immediately post ingestion. As the study progresses, there is good clearance of activity from the stomach and visualization of progressively increasing small bowel activity. By the end of the study, there is almost no retention noted in the stomach. Retention in the stomach at each time interval was: 1 hour 82% (normal 37%-90%) 2 hours 6% (normal 30%-60%) 3 hours 4% 4 hours (Not Obtained) (normal 0%-10%) NM/NM gastric emptying study IMPRESSION: Normal solid food gastric emptying study.
== END ==
LOC: HO.NUCMED 08:05
PROVIDERS: Visit Provider Nurse Practitioner
DX: R10.13 Epigastric pain (principal); R14.0 Abdominal distension (gaseous)
CPT/HCPCS: 78264; A9541

== ENCOUNTER → 2021-06-30 13:19 | Outpatient (REF) | payer OTHER, SELFPAY ==
--- NOTE | 2021-06-30 13:22 | ECHOL_ITS ---
INDICATIONS: Cardiomyopathy, unspecified. HT: 5'5 WT: 175 BSA: 1.87 BP: 98/58 COPY MACHINE OPERATOR: DSG STUDY QUALITY: ECG RHYTHM: CONCLUSIONS: FINDINGS: M-MODE/2D MEASUREMENTS: LVd: 6.49 cm LVs: 5.7 cm IVSd: 0.9 cm IVSs: LVPWd: 1.02 cm LVPWs: ASC. Aorta: TAPSE: 1.55 cm MITRAL E/A: 95.5 cm^2/ 26.9 cm^2 = 3.6 E Med. 5.4 cm/s E Lat. 8.92 cm/s MTDD
--- NOTE | 2021-06-30 13:22 | CA_ITS ---
Transthoracic Echocardiogram Patient (Last, First, Middle): Edin Landaverde, Gender: Female Date of : 1980 Age: 40 Procedure Date: 06/30/2021 Procedure Type: Transthoracic Echocardiogram Location: OP Height: 165.1 cm Weight: 79.38 kg BSA: 1.87 m2 Heart Rate: bpm BP: 98 / 58 mmHg Commercial Analyst: DURAN Referring MD: Payam Aviles MD All Source Analyst: Payam Aviles MD Symptoms: I42.9 - Cardiomyopathy, unspecified Study Quality: Good ECG Rhythm: Sinus Conclusions: - Moderately dilated left ventricle with severe LV systolic dysfunction with LVEF of 15-20% with restrictive filling pattern Findings Left Ventricle Moderately increased left ventricular cavity size. There is normal left ventricular wall thickness. The left ventricular systolic function is severely decreased. The visually estimated ejection fraction is between 15 20%. There is severe global hypokinesis. Spectral Doppler is indicative of a restrictive filling pattern. Pericardium/Pleural There is a small loculated pericardial effusion overlying the left ventricle. Prior Study Comparison No significant change compared to prior study. Measurements M-Mode Liner Measurements Normals - Women/Men LVIDd: 6.66 3.9-5.3/4.2-5.9 cm LVIDd Index: 3.56 1.9-3.2 cm/m2 LVIDs: 5.54 2.0-3.8 cm M-Mode Volumes LV EDV: 228.00 LV ESV: 150.00 2D Linear Measurements IVSd: 0.92 0.6-0.9/0.6-1.0 cm LVIDd: 6.49 3.9-5.3/4.2-5.9 cm LVIDd Index: 3.47 2.4-3.2/2.2-3.1 cm/m2 LVIDs: 5.70 2.0-3.6 cm LVPWd: 1.02 0.7-1.1 cm LV Mass: 339.41 67-162/88-224 g LV Mass Index: 181.50 43-95/49-115 g/m2 2D Systolic Function EF 4C: 19.50 >55% EF 2C: 23.30 >55% M-Mode Systolic Function FS: 16.80 27-47/25-43% Mitral Valve MV Pk E: 0.96 MV PK A: 0.27 MV Decel Time: 134.00 E/A: 3.60 E'Lateral: 8.92 E'Medial: 5.44 E/E' Med: 17.60 E/E' Lat: 10.70 PHT: 39.00 MVA PHT: 5.64 Decel [place]: 7.14 Diastolic Function MV Pk E: 0.96 MV Pk A: 0.27 E/A: 3.60 E'Medial: 5.44 E/E' Med: 17.60 E' Laterial: 8.92 E/E' Lat: 10.70 Right Ventricle TAPSE (mm): 1.55 Updated in Other Vendor System with Status of Final Payam Aviles MD electronically signed on 07/06/2021 3:22:08 PM with status of Final
== END ==
LOC: HO.CARD 13:19
PROVIDERS: PCP Internal Medicine; Visit Provider Internal Medicine Cardiovascular Disease
DX: I42.9 Cardiomyopathy, unspecified (principal); I50.20 Unspecified systolic (congestive) heart failure
CPT/HCPCS: 93308

== ENCOUNTER → 2021-07-12 12:32 | Outpatient (BNVA) | payer OTHER, SELFPAY | PROVIDERS: PCP Internal Medicine; Referring Provider Internal Medicine; Visit Provider Internal Medicine Cardiovascular Disease | DX: I50.20 Unspecified systolic (congestive) heart failure (principal) | CPT/HCPCS: 93005; 99212 ==

== ENCOUNTER 2021-07-15 10:43 | Outpatient (REF) | payer OTHER, SELFPAY ==
[2021-07-15 13:10] LABS: MANUAL DIFF FLAG NO
[2021-07-15 13:31] LABS: Basophils Percent Auto 0.2 % (0-2); Eosinophils Absolute Auto 0.1 X10*3/uL (0.0-0.4); Eosinophils Percent Auto 1.1 % (0-4); Hematocrit 43.9 % (37.0-47.0); Hemoglobin 14.2 g/dl (12.0-16.0); Imm Gran Abs Auto 0.02 X10*3/uL (0.00-0.03); Imm Gran Pct Auto 0.2 % (0.0-0.4); Lymphocytes Absolute Auto 1.5 X10*3/uL (1.2-4.9); Lymphocytes Percent Auto 17.3 % (20-40); Mean Corpuscular HGB Conc 32.3 g/dl (31.0-35.0); Mean Corpuscular Hemoglobin 28.6 pg (27.0-33.0); Mean Corpuscular Volume 88.5 fL (80.0-98.0); Mean Platelet Volume 10.6 fL (9.4-12.3); Monocytes Absolute Auto 0.6 X10*3/uL (0.1-1.2); Monocytes Percent Auto 6.8 % (2-11); Neutrophils Absolute Auto 6.3 x10*3/uL (2.0-8.3); Neutrophils Percent Auto 74.4 % (45-73); Platelet Count 257 X10*3/uL (160-400); Red Blood Count 4.96 X10*6/uL (4.20-5.50); Red Cell Distribution Width 15.4 % (11.0-16.0); White Blood Count 8.5 X10*3/uL (4.8-10.8)
[2021-07-15 13:59] LABS: Alanine Aminotransferase 52 U/L (0-31); Albumin Level 4.2 g/dL (3.5-5.0); Alkaline Phosphatase 83 U/L (39-117); Amylase 62 U/L (28-100); Anion Gap 12 (12-20); Aspartate Amino Transferase 36 U/L (5-31); Blood Urea Nitrogen 13 mg/dL (9-16); Calcium 9.8 mg/dL (8.4-10.2); Carbon Dioxide 27 mmol/L (22-29); Chloride 103 mmol/L (96-108); Estimated Glomerular Filt Rate > 60; Glucose Random 98 mg/dL (60-115); Lipase 22 U/L (8-78); Potassium 4.4 mmol/L (3.3-5.1); Sodium 138 mmol/L (135-145); Total Protein 7.1 g/dL (6.5-8.0)
[2021-07-15 14:08] LABS: HCG Quantitative < 2 mIU/mL
[2021-07-15 15:09] LABS: Urine Pregnancy NEGATIVE (NEGATIVE)
[2021-07-15 15:10] LABS: UPreg QC Valid YES
== END 2021-07-15 10:44 | disposition home or self-care (01) ==
LOC: HO.LAB 10:43
PROVIDERS: PCP Internal Medicine; Referring Provider Internal Medicine; Visit Provider Nurse Practitioner
DX: D13.5 Benign neoplasm of extrahepatic bile ducts (principal); R14.0 Abdominal distension (gaseous); K21.9 Gastro-esophageal reflux disease without esophagitis; N91.2 Amenorrhea, unspecified; R19.7 Diarrhea, unspecified; I50.20 Unspecified systolic (congestive) heart failure; K82.8 Other specified diseases of gallbladder
CPT/HCPCS: 36415; 80053; 81025; 82150; 83690; 84702; 85025; 99212

== ENCOUNTER → 2021-07-19 07:47 | Outpatient (REF) | payer OTHER, SELFPAY ==
--- NOTE | ~2021-07-19 | NM_ITS ---
EXAMINATION: BILIARY TRACT IMAGING STUDY WITH CCK CLINICAL INFORMATION: Epigastric pain.. COMPARISON: No previous biliary scan is available for comparison. Abdominal ultrasound dated 04/28/[address] scan of the abdomen and pelvis dated 04/05/2021 are available for comparison.. TECHNIQUE: Serial gamma scintillation camera images were obtained over the abdomen for a total observation period of 90 minutes following the intravenous administration of 5.0 mCi Tc-99m Mebrofenin. FINDINGS: There is good concentration of activity in the liver by 5 minutes post injection. Biliary activity is visualized by 12 minutes. The gallbladder is well visualized by 20 minutes. Small bowel is well visualized by 25 minutes. At 60 minutes post radiopharmaceutical injection, a 30-minute infusion of 1.6 micrograms Sincalide was then begun and an additional 40 minutes of images were obtained. There is good emptying of the gallbladder. By the end of the study there is good clearance of activity from the liver and visualization of diffuse small bowel activity. The calculated gallbladder ejection fraction is 83% (normal gallbladder ejection fraction is greater than 35%). NM/NM hepatobiliary w pharm IMPRESSION: Visualization of the gallbladder is evidence of a patent cystic duct and strong evidence against the diagnosis of acute cholecystitis. The common bile duct is patent. Gallbladder emptying and ejection fraction are normal. Liver function appears normal.
== END ==
LOC: HO.NUCMED 07:47
PROVIDERS: Visit Provider Nurse Practitioner
DX: R10.13 Epigastric pain (principal)
CPT/HCPCS: 78227; A9537; J2805

== ENCOUNTER 2021-10-20 09:59 | Outpatient (REF) | payer OTHER, SELFPAY ==
[2021-09-29 10:25] VITALS: BP 98/52; BMI 31.7
[2021-10-20 10:17] LABS: MANUAL DIFF FLAG NO
[2021-10-20 10:33] LABS: Basophils Percent Auto 0.3 % (0-2); Eosinophils Absolute Auto 0.1 X10*3/uL (0.0-0.4); Eosinophils Percent Auto 1.2 % (0-4); Hematocrit 41.8 % (37.0-47.0); Hemoglobin 13.5 g/dl (12.0-16.0); Imm Gran Abs Auto 0.04 X10*3/uL (0.00-0.03); Imm Gran Pct Auto 0.5 % (0.0-0.4); Lymphocytes Absolute Auto 1.3 X10*3/uL (1.2-4.9); Mean Corpuscular HGB Conc 32.3 g/dl (31.0-35.0); Mean Corpuscular Hemoglobin 31.5 pg (27.0-33.0); Mean Corpuscular Volume 97.7 fL (80.0-98.0); Mean Platelet Volume 10.3 fL (9.4-12.3); Monocytes Absolute Auto 0.6 X10*3/uL (0.1-1.2); Neutrophils Absolute Auto 6.6 x10*3/uL (2.0-8.3); Platelet Count 235 X10*3/uL (160-400); Red Blood Count 4.28 X10*6/uL (4.20-5.50); Red Cell Distribution Width 13.2 % (11.0-16.0); White Blood Count 8.6 X10*3/uL (4.8-10.8)
[2021-10-20 10:37] LABS: Prothrombin Time 11.8 SEC (9.9-13.0)
[2021-10-20 11:18] LABS: Anion Gap 10 (12-20); Blood Urea Nitrogen 20 mg/dL (9-16); Calcium 9.4 mg/dL (8.4-10.2); Carbon Dioxide 29 mmol/L (22-29); Chloride 103 mmol/L (96-108); Estimated Glomerular Filt Rate 55; Glucose Random 95 mg/dL (60-115); Potassium 4.7 mmol/L (3.3-5.1); Sodium 137 mmol/L (135-145)
== END 2021-10-20 10:00 | disposition home or self-care (01) ==
LOC: HO.LAB 09:59
PROVIDERS: PCP Internal Medicine; Visit Provider Internal Medicine Cardiovascular Disease
DX: I50.20 Unspecified systolic (congestive) heart failure (principal)
CPT/HCPCS: 36415; 80048; 85025; 85610

== ENCOUNTER → 2021-11-02 09:55 | Outpatient (BNVA) | payer OTHER, SELFPAY ==
[2021-09-29 10:25] VITALS: BP 98/52; BMI 31.7
== END ==
PROVIDERS: PCP Internal Medicine; Referring Provider Internal Medicine; Visit Provider Internal Medicine Cardiovascular Disease
DX: I50.20 Unspecified systolic (congestive) heart failure (principal); Z95.810 Presence of automatic (implantable) cardiac defibrillator
CPT/HCPCS: 99212

== ENCOUNTER 2021-12-06 15:17 | Emergency (ER) | payer OTHER, SELFPAY ==
[2021-09-29 10:25] VITALS: BP 98/52; BMI 31.7
--- NOTE | ~2021-12-06 | XR_ITS ---
EXAMINATION: XR CHEST CLINICAL INFORMATION: Dizziness. COMPARISON: Chest radiograph dated from 03/03/2021. TECHNIQUE: PA view of the chest was obtained. FINDINGS: Left-sided pacer with single lead projecting over the right ventricle. Stable appearance of the cardiomediastinal silhouette. Clear lungs. No pleural effusion or pneumothorax. No acute osseous abnormalities. XR/XR chest 1V IMPRESSION: No acute cardiopulmonary findings.
[2021-12-06 15:47] VITALS: BP 111/57; PULSE 64; RESP 18; TEMP 36.4; O2SAT 98; BMI 29.9
--- NOTE | 2021-12-06 15:53 | ECG_ITS ---
Test Reason : dizzy/pacemaker Blood Pressure : / mmHG Vent. Rate : 065 BPM Atrial Rate : 065 BPM P-R Int : 174 ms QRS Dur : 098 ms QT Int : 436 ms P-R-T Axes : 005 -33 017 degrees QTc Int : 453 ms Normal sinus rhythm Left axis deviation Cannot rule out Anterior infarct (cited on or before 26-FEB-2021) Abnormal ECG When compared with ECG of 05-APR-2021 02:22, Nonspecific T wave abnormality, improved in Inferior leads Nonspecific T wave abnormality has replaced inverted T waves in Lateral leads Referred By: Generic ED Physician Electronically Signed By:SERA CHAPA
[2021-12-06 16:41] LABS: MANUAL DIFF FLAG NO
[2021-12-06 16:51] LABS: Basophils Percent Auto 0.3 % (0-2); Eosinophils Percent Auto 0.5 % (0-4); Hematocrit 41.1 % (37.0-47.0); Hemoglobin 13.8 g/dl (12.0-16.0); Imm Gran Abs Auto 0.02 X10*3/uL (0.00-0.03); Imm Gran Pct Auto 0.2 % (0.0-0.4); Lymphocytes Absolute Auto 1.3 X10*3/uL (1.2-4.9); Lymphocytes Percent Auto 14.4 % (20-40); Mean Corpuscular HGB Conc 33.6 g/dl (31.0-35.0); Mean Corpuscular Hemoglobin 31.4 pg (27.0-33.0); Mean Corpuscular Volume 93.4 fL (80.0-98.0); Mean Platelet Volume 10.2 fL (9.4-12.3); Monocytes Absolute Auto 0.3 X10*3/uL (0.1-1.2); Monocytes Percent Auto 3.4 % (2-11); Neutrophils Absolute Auto 7.1 x10*3/uL (2.0-8.3); Neutrophils Percent Auto 81.2 % (45-73); Platelet Count 237 X10*3/uL (160-400); Red Cell Distribution Width 12.5 % (11.0-16.0); White Blood Count 8.8 X10*3/uL (4.8-10.8)
[2021-12-06 17:01] LABS: Anion Gap 11 (12-20); Blood Urea Nitrogen 17 mg/dL (9-16); Calcium 9.9 mg/dL (8.4-10.2); Carbon Dioxide 29 mmol/L (22-29); Chloride 104 mmol/L (96-108); Creatinine Clr Calc Pharmacy 78.5; Estimated Glomerular Filt Rate 59; Glucose Random 108 mg/dL (60-115); Potassium 4.1 mmol/L (3.3-5.1); Sodium 140 mmol/L (135-145)
[2021-12-06 17:08] LABS: Troponin-I High Sensitivity < 3.5 ng/L (<3.5-17.0)
== END 2021-12-06 17:46 | disposition left against medical advice (07) ==
LOC: HO.ED 17:40
PROVIDERS: Emergency Provider Emergency Medicine; PCP Internal Medicine
DX: R42 Dizziness and giddiness (principal); R94.31 Abnormal electrocardiogram [ECG] [EKG]
CPT/HCPCS: 36415; 71045; 80048; 84484; 85025; 93005; 99283

== ENCOUNTER 2022-03-16 14:39 | Outpatient (REF) | payer OTHER, SELFPAY ==
[2021-09-29 10:25] VITALS: BP 98/52; BMI 31.7
[2022-03-16 15:47] LABS: Anion Gap 16 (12-20); Blood Urea Nitrogen 18 mg/dL (9-16); Calcium 9.2 mg/dL (8.4-10.2); Carbon Dioxide 24 mmol/L (22-29); Chloride 105 mmol/L (96-108); Estimated Glomerular Filt Rate > 60; Glucose Random 91 mg/dL (60-115); Potassium 4.6 mmol/L (3.3-5.1); Sodium 140 mmol/L (135-145)
[2022-03-16 15:57] LABS: B Type Natriuretic Peptide 277 pg/mL (<100)
== END 2022-03-16 14:40 | disposition home or self-care (01) ==
LOC: HO.LAB 14:39
PROVIDERS: PCP Internal Medicine; Visit Provider Internal Medicine Cardiovascular Disease
DX: I50.20 Unspecified systolic (congestive) heart failure (principal); Z95.810 Presence of automatic (implantable) cardiac defibrillator
CPT/HCPCS: 36415; 80048; 83880; 99212

== ENCOUNTER → 2022-05-03 15:08 | Outpatient (REF) | payer OTHER, SELFPAY ==
[2021-09-29 10:25] VITALS: BP 98/52; BMI 31.7
--- NOTE | 2022-05-03 15:11 | CA_ITS ---
Transthoracic Echocardiogram Patient (Last, First, Middle): Edin Landaverde, Gender: Female Date of : 1980 Age: 41 Procedure Date: 05/03/2022 Procedure Type: Transthoracic Echocardiogram Location: OP Height: 162.56 cm Weight: 79.38 kg BSA: 1.85 m2 Heart Rate: 71 bpm BP: 120 / 82 mmHg Entry Engineer: GARRISON Referring MD: Payam Aviles MD Symptoms: I50.20 - Unspecified systolic (congestive) heart failure Study Quality: Adequate w contrast ECG Rhythm: Frequent PVCs Conclusions: - The left ventricular systolic function is severely decreased. The calculated ejection fraction is 21% by biplane method. - Evidence suggests grade II (moderate) diastolic dysfunction. - No obvious valvular pathology seen on this study. Findings Procedure Information Contrast agent, definity, is being given per protocol without apparent complications. Left Ventricle Severely increased left ventricular cavity size. There is normal left ventricular wall thickness. The left ventricular systolic function is severely decreased. The calculated ejection fraction is 21% by biplane method. There is severe global hypokinesis. E/E prime ratio is >15, consistent with elevated filling pressures. Evidence suggests grade II (moderate) diastolic dysfunction. Right Ventricle Normal right ventricular cavity size and systolic function. Atria The left atrium is mildly dilated. The right atrium is normal in size. Aortic Valve There is a normal trileaflet aortic valve. There is no aortic valve stenosis. There is no aortic valve regurgitation. Mitral Valve The mitral valve appears normal. There is trace mitral valve regurgitation. There is no mitral valve stenosis. Pulmonic Valve There is trace pulmonic valve regurgitation. Tricuspid Valve Normal tricuspid valve structure. There is no tricuspid valve regurgitation. Tricuspid regurgitation envelope is inadequate for calculation of right ventricular systolic pressure. Great Vessels The asc aorta and aortic arch are normal in size. Venous The inferior vena cava was not well visualized. Pericardium/Pleural There is no evidence of pericardial effusion. Prior Study Comparison No significant change compared to prior study dated: 06/30/2021. Recommendations, Care & Conclusions No obvious valvular pathology seen on this study. Measurements 2D Linear Measurements IVSd: 0.64 0.6-0.9/0.6-1.0 cm LVIDd: 7.36 3.9-5.3/4.2-5.9 cm LVIDd Index: 3.98 2.4-3.2/2.2-3.1 cm/m2 LVIDs: 5.97 2.0-3.6 cm LVPWd: 0.56 0.7-1.1 cm LA Diam: 4.20 2.7-3.8/3.0-4.0 cm LAIDs Index: 2.27 1.5-2.3 cm/m2 LV Mass: 238.36 67-162/88-224 g LV Mass Index: 128.84 43-95/49-115 g/m2 LVOT Diam: 1.90 3.0+(-)1.3 cm 2D Systolic Function EF 4C: 27.80 >55% EF 2C: 21.30 >55% EF BiP: 21.00 >55% Mitral Valve MV Pk E: 0.92 MV PK A: 0.69 MV Decel Time: 163.00 E/A: 1.30 E'Lateral: 4.68 E'Medial: 5.98 E/E' Med: 15.40 E/E' Lat: 19.70 PHT: 48.00 MVA PHT: 4.58 Decel Floyd: 5.63 Aortic Valve AoV Pk Malik: 1.09 AoV Mn Malik: 0.90 AoV VTI: 0.20 AoV Pk Grad: 5.00 Aov Mn Grad: 3.00 CYNTHIA Cont.VTI: 2.25 LVOT LVOT Pk Malik: 0.84 LVOT Mn Malik: 0.61 LVOT VTI: 0.16 LVOT Pk Grad: 3.00 LVOT Mn Grad: 2.00 LVOT Diam: 1.90 LVOT Area: 2.84 Diastolic Function MV Pk E: 0.92 MV Pk A: 0.69 E/A: 1.30 E'Medial: 5.98 E/E' Med: 15.40 E' Laterial: 4.68 E/E' Lat: 19.70 Right Ventricle TAPSE (mm): 17.00 TVS' Malik: 13.90 Great Vessels Aorta Sinus of Valsalva: 3.10 2.0-3.5 cm Ao Asc: 2.70 2.1-3.4 cm Ao Arch: 2.70 Pulmonary Valve PV Pk Malik: 0.91 Peak PV Grad: 3.00 Updated in Other Vendor System with Status of Final Ulises Montoya MD electronically signed on 05/04/2022 3:12:32 PM with status of Final
== END ==
LOC: HO.CARD 15:08
PROVIDERS: PCP Internal Medicine; Visit Provider Internal Medicine Cardiovascular Disease
DX: I50.20 Unspecified systolic (congestive) heart failure (principal)
CPT/HCPCS: 93306; Q9957

== ENCOUNTER → 2022-06-22 13:55 | Outpatient (BNVA) | payer OTHER, SELFPAY ==
[2021-09-29 10:25] VITALS: BP 98/52; BMI 31.7
== END ==
PROVIDERS: PCP Internal Medicine; Referring Provider Internal Medicine; Visit Provider Internal Medicine Cardiovascular Disease
DX: Z45.02 Encounter for adjustment and management of automatic implantable cardiac defibrillator (principal); I50.20 Unspecified systolic (congestive) heart failure
CPT/HCPCS: 99212

== ENCOUNTER 2023-01-02 14:44 | Outpatient (REF) | payer OTHER, SELFPAY ==
[2022-07-03 08:55] VITALS: BP 98/52; BMI 31.7
[2023-01-02 17:16] LABS: Anion Gap 15 (12-20); Blood Urea Nitrogen 14 mg/dL (9-16); Calcium 9.3 mg/dL (8.4-10.2); Carbon Dioxide 24 mmol/L (22-29); Chloride 103 mmol/L (96-108); Estimated Glomerular Filt Rate 48; Glucose Random 102 mg/dL (60-115); Potassium 4.4 mmol/L (3.3-5.1); Sodium 138 mmol/L (135-145)
== END 2023-01-02 14:45 | disposition home or self-care (01) ==
LOC: HO.LAB 14:44
PROVIDERS: PCP Internal Medicine; Referring Provider Internal Medicine; Visit Provider Internal Medicine Cardiovascular Disease
DX: I50.20 Unspecified systolic (congestive) heart failure (principal); Z95.810 Presence of automatic (implantable) cardiac defibrillator
CPT/HCPCS: 36415; 80048; 99212

== ENCOUNTER → 2023-04-02 23:59 | Outpatient (BNV) | payer OTHER, SELFPAY ==
[2022-07-03 08:55] VITALS: BP 98/52; BMI 31.7
--- NOTE | 2023-04-03 15:45 | MHC.OFFVIS ---
Intake Intake Visit Reasons: Remote ICD check- [facility] Allergies No Known Allergies Allergy (Verified 07/15/21 11:18) PFS Medical History Acute systolic heart failure Cardiomyopathy Diarrhea Dyspnea Fibromyalgia GERD (gastroesophageal reflux disease) Goiter Heart failure with reduced ejection fraction ICD (implantable cardioverter-defibrillator) in place Obese Tachycardia Thyroid nodule Surgical History H/O abdominoplasty History of endometrial ablation Hx of tubal ligation S/P thyroid biopsy Family History Father No problems noted. Mother No problems noted. Social History Household Members: Family Housing: House Do you presently have visiting nurse or other home services: No Alcohol intake: current Alcohol intake frequency: a few times a month Patient Tobacco Use Status: Never used Tobacco service: No Current occupational status: employed Gender identity: Female Office Procedures Cardiac Device Check Cardiac Device Check Details: Remote ICD report generated 04/02/2023. ICD function is adequate. No ventricular arrhythmias detected [id number] Cardiac Interrogation, implant defibrillator w/interim Procedure code (CPT) selection complete Coding Level of Care Code Procedure Only Diagnoses CPT Codes Cardiac Device Check - Cardiac Device 13: [id number] Cardiac Interrogation, implant defibrillator w/interim ([id number])
== END ==
PROVIDERS: PCP Internal Medicine; Visit Provider Internal Medicine Cardiovascular Disease
DX: I42.9 Cardiomyopathy, unspecified (principal); Z95.810 Presence of automatic (implantable) cardiac defibrillator
CPT/HCPCS: 93295

== ENCOUNTER → 2023-04-03 23:59 | Outpatient (BNV) | payer OTHER, SELFPAY ==
[2022-07-03 08:55] VITALS: BP 98/52; BMI 31.7
--- NOTE | 2023-04-03 15:44 | MHC.OFFVIS ---
Intake Intake Visit Reasons: Remote HF monitoring- [facility] Allergies No Known Allergies Allergy (Verified 07/15/21 11:18) PFSH Medical History Acute systolic heart failure Cardiomyopathy Diarrhea Dyspnea Fibromyalgia GERD (gastroesophageal reflux disease) Goiter Heart failure with reduced ejection fraction ICD (implantable cardioverter-defibrillator) in place Obese Tachycardia Thyroid nodule Surgical History H/O abdominoplasty History of endometrial ablation Hx of tubal ligation S/P thyroid biopsy Family History Father No problems noted. Mother No problems noted. Social History Household Members: Family Housing: House Do you presently have visiting nurse or other home services: No Alcohol intake: current Alcohol intake frequency: a few times a month Patient Tobacco Use Status: Never used Tobacco service: No Current occupational status: employed Gender identity: Female Office Procedures Cardiac Device Check Cardiac Device Check Details: Remote heart failure report generated 10/02/2022. Heart failure parameters are stable [id number] Cardiac Device Interrogation, cardio physiologic monitor Procedure code (CPT) selection complete Coding Level of Care Code Procedure Only Diagnoses CPT Codes Cardiac Device Check - Cardiac Device 15: [id number] Cardiac Device Interrogation, cardio physiologic monitor ([id number])
== END ==
PROVIDERS: PCP Internal Medicine; Visit Provider Internal Medicine Cardiovascular Disease
DX: I50.22 Chronic systolic (congestive) heart failure (principal); Z95.810 Presence of automatic (implantable) cardiac defibrillator
CPT/HCPCS: 93297

== ENCOUNTER → 2023-07-03 23:59 | Outpatient (BNV) | payer OTHER, SELFPAY ==
[2022-07-03 08:55] VITALS: BP 98/52; BMI 31.7
--- NOTE | 2023-07-09 11:08 | MHC.OFFVIS ---
Intake Intake Visit Reasons: Remote ICD Check- [facility] Allergies No Known Allergies Allergy (Verified 07/15/21 11:18) PFSH Medical History Acute systolic heart failure Cardiomyopathy Diarrhea Dyspnea Fibromyalgia GERD (gastroesophageal reflux disease) Goiter Heart failure with reduced ejection fraction ICD (implantable cardioverter-defibrillator) in place Obese Tachycardia Thyroid nodule Surgical History H/O abdominoplasty History of endometrial ablation Hx of tubal ligation S/P thyroid biopsy Family History Father No problems noted. Mother No problems noted. Household Members: Family Housing: House Do you presently have visiting nurse or other home services: No Alcohol intake: current Alcohol intake frequency: a few times a month Patient Tobacco Use Status: Never used Tobacco service: No Current occupational status: employed Gender identity: Female Office Procedures Cardiac Device Check Cardiac Device Check Details: Remote ICD report generated 07/06/2023. ICD function is adequate. One reported episode of ventricular arrhythmia, however unfortunately EGM is not available. [id number] Cardiac Interrogation, implant defibrillator w/interim Procedure code (CPT) selection complete Coding Level of Care Code Procedure Only CPT Codes Cardiac Device Check - Cardiac Device 13: [id number] Cardiac Interrogation, implant defibrillator w/interim ([id number])
== END ==
PROVIDERS: PCP Internal Medicine; Visit Provider Internal Medicine Cardiovascular Disease
DX: I42.9 Cardiomyopathy, unspecified (principal); Z95.810 Presence of automatic (implantable) cardiac defibrillator
CPT/HCPCS: 93295

== ENCOUNTER → 2023-07-09 23:59 | Outpatient (BNV) | payer OTHER, SELFPAY ==
[2022-07-03 08:55] VITALS: BP 98/52; BMI 31.7
--- NOTE | 2023-07-09 15:06 | MHC.OFFVIS ---
Intake Intake Visit Reasons: Remote HF Monitoring- [facility] Allergies No Known Allergies Allergy (Verified 07/15/21 11:18) PFSH Medical History Acute systolic heart failure Cardiomyopathy Diarrhea Dyspnea Fibromyalgia GERD (gastroesophageal reflux disease) Goiter Heart failure with reduced ejection fraction ICD (implantable cardioverter-defibrillator) in place Obese Tachycardia Thyroid nodule Surgical History H/O abdominoplasty History of endometrial ablation Hx of tubal ligation S/P thyroid biopsy Family History Father No problems noted. Mother No problems noted. Household Members: Family Housing: House Do you presently have visiting nurse or other home services: No Alcohol intake: current Alcohol intake frequency: a few times a month Patient Tobacco Use Status: Never used Tobacco service: No Current occupational status: employed Gender identity: Female Office Procedures Cardiac Device Check Cardiac Device Check Details: Remote heart failure report generated 07/09/2023. Heart failure parameters are stable [id number] Cardiac Device Interrogation, cardio physiologic monitor Procedure code (CPT) selection complete Coding Level of Care Code Procedure Only CPT Codes Cardiac Device Check - Cardiac Device 15: [id number] Cardiac Device Interrogation, cardio physiologic monitor ([id number])
== END ==
PROVIDERS: PCP Internal Medicine; Visit Provider Internal Medicine Cardiovascular Disease
DX: I50.20 Unspecified systolic (congestive) heart failure (principal); Z95.810 Presence of automatic (implantable) cardiac defibrillator
CPT/HCPCS: 93297

== ENCOUNTER → 2023-07-18 13:50 | Outpatient (REF) | payer OTHER, SELFPAY ==
[2022-07-03 08:55] VITALS: BP 98/52; BMI 31.7
--- NOTE | 2023-07-18 13:54 | CA_ITS ---
Transthoracic Echocardiogram Patient (Last, First, Middle): Edin Landaverde, Gender: Female Date of : 1980 Age: 42 Procedure Date: 07/18/2023 Procedure Type: Transthoracic Echocardiogram Location: OP Height: 162.56 cm Weight: 86.18 kg BSA: 1.91 m2 Heart Rate: bpm BP: 90 / 60 mmHg Roof Painter: TO Referring MD: Payam Aviles MD Symptoms: I50.20 - Unspecified systolic (congestive) heart failure Study Quality: Fair/Contrast ECG Rhythm: Sinus Conclusions: - The left ventricular systolic function is severely decreased. The visually estimated ejection fraction is between 15-20%. - No obvious valvular pathology seen on this study. Findings Procedure Information Contrast agent, definity, is being given per protocol without apparent complications. Left Ventricle Severely increased left ventricular cavity size. The left ventricular systolic function is severely decreased. The visually estimated ejection fraction is between 15-20%. There is severe global hypokinesis. Evidence suggests grade I (mild) diastolic dysfunction. Right Ventricle Normal right ventricular cavity size. There is low normal right ventricular systolic function. Atria Both atria are normal in size. Aortic Valve There is a normal trileaflet aortic valve. There is no aortic valve stenosis. There is no aortic valve regurgitation. Mitral Valve There is mild anterior mitral leaflet thickening. There is mild mitral valve regurgitation. There is no mitral valve stenosis. Pulmonic Valve The pulmonic valve is likely normal. Tricuspid Valve Normal tricuspid valve structure. There is trace tricuspid valve regurgitation. There is no evidence of pulmonary hypertension. Great Vessels The asc aorta is normal in size. Venous The inferior vena cava is normal in size and collapses greater than 50% with inspiration. Pericardium/Pleural There is a trivial pericardial effusion. Prior Study Comparison No significant change compared to prior study dated: 06/02/2022. Improvement in mitral inflow pattern from grade 2 to grade 1. Images reviewed. Recommendations, Care & Conclusions No obvious valvular pathology seen on this study. Measurements 2D Linear Measurements IVSd: 0.78 0.6-0.9/0.6-1.0 cm LVIDd: 6.82 3.9-5.3/4.2-5.9 cm LVIDd Index: 3.57 2.4-3.2/2.2-3.1 cm/m2 LVIDs: 5.87 2.0-3.6 cm LVPWd: 0.78 0.7-1.1 cm LA Diam: 3.80 2.7-3.8/3.0-4.0 cm LAIDs Index: 1.99 1.5-2.3 cm/m2 LV Mass: 281.24 67-162/88-224 g LV Mass Index: 147.25 43-95/49-115 g/m2 LVOT Diam: 2.20 3.0+(-)1.3 cm 2D Systolic Function EF 4C: 28.00 >55% EF 2C: 14.50 >55% EF BiP: 24.10 >55% Mitral Valve MV Pk E: 0.64 MV PK A: 0.68 MV Decel Time: 202.00 E/A: 0.90 E'Lateral: 5.04 E'Medial: 3.99 E/E' Med: 16.00 E/E' Lat: 12.70 PHT: 59.00 MVA PHT: 3.73 Decel [place]: 3.16 Aortic Valve AoV Pk Malik: 1.15 AoV Mn Malik: 0.79 AoV VTI: 0.21 AoV Pk Grad: 5.00 Aov Mn Grad: 3.00 CYNTHIA Cont.VTI: 1.93 LVOT LVOT Pk Malik: 0.57 LVOT Mn Malik: 0.39 LVOT VTI: 0.11 LVOT Pk Grad: 1.00 LVOT Mn Grad: 1.00 LVOT Diam: 2.20 LVOT Area: 3.80 Diastolic Function MV Pk E: 0.64 MV Pk A: 0.68 E/A: 0.90 E'Medial: 3.99 E/E' Med: 16.00 E' Laterial: 5.04 E/E' Lat: 12.70 Right Ventricle TAPSE (mm): 20.90 TVS' Malik: 10.10 Tricuspid Valve TR Pk Malik: 1.67 TR Pk Grad: 11.00 RA Press: 3.00 RVSP: 14.00 Great Vessels Aorta Sinus of Valsalva: 3.04 2.0-3.[address] [place]: 2.40 1.7-3.4 cm Ao Asc: 2.90 2.1-3.4 cm Updated in Other Vendor System with Status of Final Ulises Montoya MD electronically signed on 07/19/2023 2:44:38 PM with status of Final
== END ==
LOC: HO.CARD 13:50
PROVIDERS: PCP Internal Medicine; Visit Provider Internal Medicine Cardiovascular Disease
DX: I50.20 Unspecified systolic (congestive) heart failure (principal)
CPT/HCPCS: 93306; Q9957

== ENCOUNTER → 2023-07-18 13:54 | Outpatient (BNV) | payer OTHER, SELFPAY ==
[2022-07-03 08:55] VITALS: BP 98/52; BMI 31.7
== END ==
PROVIDERS: PCP Internal Medicine; Visit Provider Internal Medicine
DX: I34.0 Nonrheumatic mitral (valve) insufficiency (principal); I50.20 Unspecified systolic (congestive) heart failure
CPT/HCPCS: 93306

== ENCOUNTER 2023-07-23 13:51 | Outpatient (AMB) | payer OTHER, SELFPAY ==
[2022-07-03 08:55] VITALS: BP 98/52; BMI 31.7
--- NOTE | 2023-07-23 14:23 | MHC.OFFVIS ---
Intake Vital Signs 07/23/23 14:24 Height 5 ft 4 in Weight 192 lb 10.944 oz BMI 33.1 BP 100/62 Blood Pressure Location Lt brachial Position Sitting Intake Visit Reasons: 6 mth w/ [facility] and echo Emergency Room Registered Nurse Required: Yes Emergency Room Registered Nurse Language: Program Engagement Director Name: donna tsai [id number] Allergies No Known Allergies Allergy (Verified 07/23/23 14:26) Medication List - Last Reconciled 07/23/23 by Kylah Hanson, SHELLFISH MANAGER-C carvedilol (Coreg) 12.5 mg PO BID 90 days furosemide (Lasix) 40 mg PO BID sacubitril-valsartan 24-26 mg (Entresto) 1 tab PO BID spironolactone (Aldactone) 12.5 mg (1/2 x 25 mg) PO DAILY 90 days HPI 6 mth w/ [facility] and echo HPI Details Edin is a 42-year-old female past medical history of nonischemic cardiomyopathy, heart failure with reduced EF, ICD in place who presents for follow-up. Today she reports she has been feeling well in recent months. No concerning symptoms. She denies having shortness of breath, chest discomfort, heart palpitations. She reports good activity tolerance. Takes all meds as directed. She is concerned about her heart and is asking what more can be done. Certified fire dispatcher used. [facility] Medical History ICD (implantable cardioverter-defibrillator) in place Diarrhea GERD (gastroesophageal reflux disease) Heart failure with reduced ejection fraction Cardiomyopathy Acute systolic heart failure Dyspnea Tachycardia Goiter Thyroid nodule Fibromyalgia Obese Surgical History History of endometrial ablation Hx of tubal ligation S/P thyroid biopsy H/O abdominoplasty Family History Father No problems noted. Mother No problems noted. Social History Household Members: Family Housing: House Do you presently have visiting nurse or other home services: No Alcohol intake: current Alcohol intake frequency: a few times a month Patient Tobacco Use Status: Never used Tobacco service: No Current occupational status: employed Gender identity: Female Review of Systems Const All systems reviewed & are unremarkable except as noted in HPI and below ENT Denies dizziness Card Denies chest pain, Denies chest pain at rest, Denies chest pain with activity, Denies rapid heart rate, Denies pedal edema, Denies edema, Denies leg edema, Denies lightheadedness, Denies palpitations, Denies dyspnea, Denies dyspnea on exertion and Denies orthopnea Resp Denies cough, Denies dyspnea and Denies dyspnea on exertion GI Denies hematochezia and Denies change in stool character Musc Denies abnormal gait, Denies limited range of motion, Denies muscle cramps, Denies muscle weakness, Denies numbness, Denies radiating pain into limb, Denies stiffness and Denies tingling Neuro Denies abnormal gait, Denies dizziness, Denies numbness and Denies tingling Endo Denies palpitations Physical Exam Vital Signs: Last Vital Signs BP 100/62 07/23/23 14:24 BMI result Body Mass Index 33.1 Const General: cooperative, healthy appearing, comfortable and no acute distress Orientation/consciousness: patient oriented x3 Neck Neck: Yes normal visual inspection Resp Effort & Inspection: normal respiratory effort Auscultation: clear to auscultation bilaterally, no crackles, no rales, no rhonchi and no wheezes Cardio Jugular venous distension: no JVD Rate: regular rate Rhythm: regular rhythm Heart sounds: S1 normal heart sound present, S2 normal heart sound present, no murmurs and no rubs Neuro General: patient oriented x3 Extrem General: Yes normal to inspection Psych Appearance: grossly normal Mental Status: mental status grossly normal Speech and movement: Normal speech and movement present Office Procedures Cardiac Device Check Cardiac Device Check Details: [facility] single lead ICD interrogation today, battery 8.7 years, VVI mode with low rate 40, V paced less than 1%, 1 high V rate, possible SVT, 01/10/2023 at 21:40, none since that time, no therapies, V sensing and lead impedance stable [id number] Cardiac Device Check, single lead implantable defibrillator Procedure code (CPT) selection complete EKG Details: Today, read by me, sinus rhythm with PACs with aberrant conduction, T-wave inversion V2,, can not exclude prior anterior infarct which is similar to prior, rate 68 [id number], Complete Assessment & Plan Assessment & Plan (1) Cardiomyopathy: Code(s): I42.9 - Cardiomyopathy, unspecified Qualifiers: Cardiomyopathy type: unspecified Qualified Code(s): I42.9 - Cardiomyopathy, unspecified Plan: History of nonischemic cardiomyopathy. Last echocardiogram done 07/18/2023 showing EF 15-20%, no valve abnormalities, overall no change from echo 2021. She currently reports feeling well with NYHA class 1 symptoms. She is on carvedilol and Entresto for neurohormonal modulation. She is also on Aldactone and Lasix. Labs done on 01/02/2023 showed potassium 4.4, creatinine 1.22. Signs and symptoms of heart failure reviewed with her. Continue current med management. Last office note from Dr. Aviles states he will start Jardiance. I do not see this was ordered in our system. Will start on Jardiance 10 mg daily at this time. She is due for repeat labs, patient notified. Will recheck CMP. Cardiology follow-up in 6 months, sooner if needed. (2) Heart failure with reduced ejection fraction: Code(s): I50.20 - Unspecified systolic (congestive) heart failure Plan: As above (3) ICD (implantable cardioverter-defibrillator) in place: Comment: [facility] single-chamber ICD placed, 10/28/2021 for primary prevention Code(s): Z95.810 - Presence of automatic (implantable) cardiac defibrillator Plan: [facility] single lead ICD interrogation today showing device is functioning normally. One episode of high V rate last spring. No therapies for VT or VF. Remote monitoring in use. Next office interrogation in 6 months, sooner if needed Orders: Orders Comprehensive Met. Panel Today I50.20 - Unspecified systolic (congestive) heart failure B Type Natriuretic Peptide Today I42.9 - Cardiomyopathy, unspecified, I50.20 - Unspecified systolic (congestive) heart failure Medications: New empagliflozin (Jardiance) for treatment of heart failure 10 mg PO DAILY 30 tabs 5RF heart failure Coding Level of Care Code Est Pt Level 4 (85865) Diagnoses Cardiomyopathy, unspecified type I42.9 Cardiomyopathy type: unspecified Heart failure with reduced ejection fraction I50.20 ICD (implantable cardioverter-defibrillator) in place Z95.810 CPT Codes Cardiac Device Check - Cardiac Device 4: 84966-XX Cardiac Device Check, single lead implantable defibrillator ([id number]) EKG - CPT: 99189-Tcqdzoltnpcvywsfi, Complete ([id number]) Time Spent (min) 28
[2023-07-23 14:24] VITALS: BP 100/62; BMI 33.1
== END 2023-07-23 15:31 | disposition home or self-care (01) ==
PROVIDERS: Visit Provider Nurse Practitioner Family
DX: I42.9 Cardiomyopathy, unspecified (principal); I50.20 Unspecified systolic (congestive) heart failure; Z95.810 Presence of automatic (implantable) cardiac defibrillator
CPT/HCPCS: 93010; 93282; 99214

== ENCOUNTER → 2023-07-23 13:51 | Outpatient (BNVA) | payer OTHER, SELFPAY ==
[2022-07-03 08:55] VITALS: BP 98/52; BMI 31.7
== END ==
PROVIDERS: Visit Provider Nurse Practitioner Family
DX: Z45.02 Encounter for adjustment and management of automatic implantable cardiac defibrillator (principal); I42.9 Cardiomyopathy, unspecified; I50.20 Unspecified systolic (congestive) heart failure
CPT/HCPCS: 93005; 99212

== ENCOUNTER → 2023-08-09 23:59 | Outpatient (BNV) | payer OTHER, SELFPAY ==
[2022-07-03 08:55] VITALS: BP 98/52; BMI 31.7
--- NOTE | 2023-08-14 08:18 | MHC.OFFVIS ---
Intake Intake Visit Reasons: Remote HF Monitoring- [facility] Allergies No Known Allergies Allergy (Verified 07/23/23 14:26) PFS Medical History ICD (implantable cardioverter-defibrillator) in place Diarrhea GERD (gastroesophageal reflux disease) Heart failure with reduced ejection fraction Cardiomyopathy Acute systolic heart failure Dyspnea Tachycardia Goiter Thyroid nodule Fibromyalgia Obese Surgical History History of endometrial ablation Hx of tubal ligation S/P thyroid biopsy H/O abdominoplasty Family History Father No problems noted. Mother No problems noted. Social History Household Members: Family Housing: House Do you presently have visiting nurse or other home services: No Alcohol intake: current Alcohol intake frequency: a few times a month Patient Tobacco Use Status: Never used Tobacco service: No Current occupational status: employed Gender identity: Female Office Procedures Cardiac Device Check Cardiac Device Check Details: Remote heart failure report generated 08/09/2023. Heart failure parameters are stable [id number] Cardiac Device Interrogation, cardio physiologic monitor Procedure code (CPT) selection complete Assessment & Plan Assessment & Plan (1) ICD (implantable cardioverter-defibrillator) in place: Comment: [facility] single-chamber ICD placed, 10/28/2021 for primary prevention Code(s): Z95.810 - Presence of automatic (implantable) cardiac defibrillator Plan: See above Coding Level of Care Code Procedure Only Diagnoses ICD (implantable cardioverter-defibrillator) in place Z95.810 CPT Codes Cardiac Device Check - Cardiac Device 15: [id number] Cardiac Device Interrogation, cardio physiologic monitor ([id number])
== END ==
PROVIDERS: PCP Internal Medicine; Visit Provider Internal Medicine Cardiovascular Disease
DX: I50.20 Unspecified systolic (congestive) heart failure (principal); Z95.810 Presence of automatic (implantable) cardiac defibrillator
CPT/HCPCS: 93297

== ENCOUNTER 2023-09-20 13:52 | Outpatient (REF) | payer OTHER, SELFPAY ==
[2022-07-03 08:55] VITALS: BP 98/52; BMI 31.7
--- NOTE | ~2023-09-20 | MM_ITS ---
EXAMINATION: MM SCREENING DIGITAL BREAST TOMOSYNTHESIS, BILATERAL CLINICAL INFORMATION: Screening. Asymptomatic. COMPARISON: Mammography: This study is compared with prior exams dating back to 2020. TECHNIQUE: Digital breast tomosynthesis is performed in both the craniocaudal and mediolateral oblique views along with computer-aided detection (CAD). Synthesized 2D images are generated from the tomosynthesis. FINDINGS: There are scattered areas of fibroglandular density (ACR BI-RADS breast composition Category b). There is an oval focal asymmetry in the lower inner quadrant of the right breast. Additional mammographic and targeted sonographic evaluation of this finding is advised. In the left breast, there are no significant masses, abnormal calcifications, or other abnormalities. MM/MM tomosynthesis screening BI IMPRESSION: Focal asymmetry of the right breast warrants additional mammographic and targeted sonographic imaging. No mammographic signs of malignancy left breast. ASSESSMENT: BI-RADS BI-RADS 0 - Incomplete: Needs additional Imaging. RECOMMENDATION: 1. Additional views of the right breast 2. Targeted ultrasound if warranted after review of the additional views. 3. Radiology department staff will contact the patient for additional imaging. Additional Imaging required This examination should not preclude the clinical evaluation of a suspicious palpable abnormality. This patient's information was entered into a reminder system with a target due date for their next mammogram.
== END 2023-09-20 13:53 | disposition home or self-care (01) ==
LOC: HO.MAMMO 13:52
PROVIDERS: PCP Internal Medicine; Visit Provider Internal Medicine
DX: Z12.31 Encounter for screening mammogram for malignant neoplasm of breast (principal)
CPT/HCPCS: 77063; 77067

== ENCOUNTER → 2023-09-20 14:00 | Outpatient (BNV) | payer OTHER, SELFPAY ==
[2022-07-03 08:55] VITALS: BP 98/52; BMI 31.7
== END ==
PROVIDERS: PCP Internal Medicine; Visit Provider Radiology Diagnostic Radiology
DX: Z12.31 Encounter for screening mammogram for malignant neoplasm of breast (principal)
CPT/HCPCS: 77063; 77067

== ENCOUNTER → 2023-10-01 23:59 | Outpatient (BNV) | payer OTHER, SELFPAY ==
[2022-07-03 08:55] VITALS: BP 98/52; BMI 31.7
--- NOTE | 2023-10-03 15:47 | A.OFFVIS_ITS ---
Intake Intake Visit Reasons: Remote ICD Check- [facility] Allergies No Known Allergies Allergy (Verified 07/23/23 14:26) [facility] Medical History ICD (implantable cardioverter-defibrillator) in place Diarrhea GERD (gastroesophageal reflux disease) Heart failure with reduced ejection fraction Cardiomyopathy Acute systolic heart failure Dyspnea Tachycardia Goiter Thyroid nodule Fibromyalgia Obese Surgical History History of endometrial ablation Hx of tubal ligation S/P thyroid biopsy H/O abdominoplasty Family History Father No problems noted. Mother No problems noted. Social History Household Members: Family Housing: House Do you presently have visiting nurse or other home services: No Alcohol intake: current Alcohol intake frequency: a few times a month Patient Tobacco Use Status: Never used Tobacco service: No Current occupational status: employed Gender identity: Female Office Procedures Cardiac Device Check Cardiac Device Check Details: Remote ICD report generated 10/01/2023. ICD function is adequate. [id number] Cardiac Interrogation, implant defibrillator w/interim Procedure code (CPT) selection complete Assessment & Plan Assessment & Plan (1) ICD (implantable cardioverter-defibrillator) in place: Comment: [facility] single-chamber ICD placed, 10/28/2021 for primary prevention Code(s): Z95.810 - Presence of automatic (implantable) cardiac defibrillator Plan: See above Coding Level of Care Code Procedure Only Diagnoses ICD (implantable cardioverter-defibrillator) in place Z95.810 CPT Codes Cardiac Device Check - Cardiac Device 13: 60450-Eouwoy Cardiac Interrogation, implant defibrillator w/interim ([id number])
== END ==
PROVIDERS: PCP Internal Medicine; Visit Provider Internal Medicine Cardiovascular Disease
DX: I42.9 Cardiomyopathy, unspecified (principal); Z95.810 Presence of automatic (implantable) cardiac defibrillator
CPT/HCPCS: 93295

== ENCOUNTER → 2023-10-15 23:59 | Outpatient (BNV) | payer OTHER, SELFPAY ==
[2022-07-03 08:55] VITALS: BP 98/52; BMI 31.7
--- NOTE | 2023-10-16 16:33 | MHC.OFFVIS ---
Intake Intake Visit Reasons: Remote HF Monitoring- [facility] Allergies No Known Allergies Allergy (Verified 07/23/23 14:26) PFS Medical History ICD (implantable cardioverter-defibrillator) in place Diarrhea GERD (gastroesophageal reflux disease) Heart failure with reduced ejection fraction Cardiomyopathy Acute systolic heart failure Dyspnea Tachycardia Goiter Thyroid nodule Fibromyalgia Obese Surgical History History of endometrial ablation Hx of tubal ligation S/P thyroid biopsy H/O abdominoplasty Family History Father No problems noted. Mother No problems noted. Social History Household Members: Family Housing: House Do you presently have visiting nurse or other home services: No Alcohol intake: current Alcohol intake frequency: a few times a month Patient Tobacco Use Status: Never used Tobacco service: No Current occupational status: employed Gender identity: Female Office Procedures Cardiac Device Check Cardiac Device Check Details: Remote heart failure report generated 10/15/2023. Heart failure parameters are stable [id number] Cardiac Device Interrogation, cardio physiologic monitor Procedure code (CPT) selection complete Assessment & Plan Assessment & Plan (1) ICD (implantable cardioverter-defibrillator) in place: Comment: [facility] single-chamber ICD placed, 10/28/2021 for primary prevention Code(s): Z95.810 - Presence of automatic (implantable) cardiac defibrillator Plan: See above Coding Level of Care Code Procedure Only Diagnoses ICD (implantable cardioverter-defibrillator) in place Z95.810 CPT Codes Cardiac Device Check - Cardiac Device 15: [id number] Cardiac Device Interrogation, cardio physiologic monitor ([id number])
== END ==
PROVIDERS: PCP Internal Medicine; Visit Provider Internal Medicine Cardiovascular Disease
DX: I50.20 Unspecified systolic (congestive) heart failure (principal); Z95.810 Presence of automatic (implantable) cardiac defibrillator
CPT/HCPCS: 93297

== ENCOUNTER 2023-11-12 13:26 | Outpatient (REF) | payer OTHER, SELFPAY ==
[2022-07-03 08:55] VITALS: BP 98/52; BMI 31.7
--- NOTE | ~2023-11-12 | US_ITS ---
EXAMINATION: MM DIAGNOSTIC DIGITAL BREAST TOMOSYNTHESIS, RIGHT US BREAST LIMITED, RIGHT MAMMOGRAPHY: CLINICAL INFORMATION: Evaluate oval focal asymmetry in the lower inner quadrant of the right breast, 4:00 axis, middle one third seen on screening exam. COMPARISON: Mammography: 09/20/2023, 02/22/2021, 02/16/2021,; ultrasound right breast 02/22/2021. TECHNIQUE: Digital right breast tomosynthesis is performed in the following views: Full-field digital 3-D right mediolateral view, and 3-D spot compression views in the right MLO and right CC projections. FINDINGS: There are scattered areas of fibroglandular density (ACR BI-RADS breast composition Category b). Diagnostic views demonstrate a bilobed isodense mass in the 4:00 axis of the right breast, middle one third, measuring 1.6 x 1.1 cm with circumscribed margins, and trace layering milk of calcium in both lobes. Previously this was present and 2020 and worked up as a cluster of cysts. It is significantly larger on today's exam. We will evaluate this with ultrasound. No additional suspicious abnormality right breast. ULTRASOUND: CLINICAL INFORMATION: Evaluate bilobed circumscribed mass 4:00 axis right breast. COMPARISON: 02/22/2021. TECHNIQUE: Targeted sonographic evaluation was performed using a high frequency linear transducer. Attention was given to the right breast 4:00 axis. Selected archived documentation. FINDINGS: RIGHT BREAST: -The cluster of cysts has increased in size significantly, however remains benign in appearance. It currently measures 1.2 x 1.1 x 0.6 cm, and is predominantly simple with a tiny abutting cyst which has a tiny amount of specular debris and milk of calcium present. No color Doppler signal present. No soft tissue nodularity present. This remains a benign finding. No further follow-up recommended. US/US breast RT limited mamm only IMPRESSION: No findings suspicious for malignancy right breast. Cluster of cysts right breast 4:00 axis, 3 cm from the nipple, has increased in size as detailed when compared with 2020. It is largely simple with minimal complicating features such as a few specular echoes and tiny amounts of milk of calcium. This is a benign finding and no further follow-up recommended. Recommend the patient return to routine annual screening mammography. OVERALL ASSESSMENT: Mammography: BI-RADS 2 - Benign Findings Ultrasound: BI-RADS 2 - Benign Findings RECOMMENDATION: 1 year F/U This patient's information was entered into a reminder system with a target due date for their next mammogram.
== END 2023-11-12 13:27 | disposition home or self-care (01) ==
LOC: HO.MAMMO 13:26
PROVIDERS: PCP Internal Medicine; Visit Provider Internal Medicine
DX: N64.89 Other specified disorders of breast (principal)
CPT/HCPCS: 76642; 77061; 77065

== ENCOUNTER → 2023-11-12 13:30 | Outpatient (BNV) | payer OTHER, SELFPAY ==
[2022-07-03 08:55] VITALS: BP 98/52; BMI 31.7
== END ==
PROVIDERS: PCP Internal Medicine; Visit Provider Radiology Diagnostic Radiology
DX: N63.14 Unspecified lump in the right breast, lower inner quadrant (principal)
CPT/HCPCS: 76642; 77061; 77065

== ENCOUNTER 2024-01-23 09:29 | Outpatient (REF) | payer OTHER, SELFPAY ==
[2022-07-03 08:55] VITALS: BP 98/52; BMI 31.7
[2024-01-23 11:26] LABS: Anion Gap 13 (12-20); Blood Urea Nitrogen 16 mg/dL (9-16); Calcium 9.3 mg/dL (8.4-10.2); Carbon Dioxide 24 mmol/L (22-29); Chloride 104 mmol/L (96-108); Estimated Glomerular Filt Rate > 60; Glucose Random 106 mg/dL (60-115); Potassium 3.6 mmol/L (3.3-5.1); Sodium 137 mmol/L (135-145)
[2024-01-23 11:28] LABS: B Type Natriuretic Peptide 89 pg/mL (<100)
== END 2024-01-23 09:30 | disposition home or self-care (01) ==
LOC: HO.LAB 09:29
PROVIDERS: PCP Internal Medicine; Visit Provider Internal Medicine Cardiovascular Disease
DX: I50.20 Unspecified systolic (congestive) heart failure (principal); Z95.810 Presence of automatic (implantable) cardiac defibrillator
CPT/HCPCS: 36415; 80048; 83735; 83880; 93005; 99212

== ENCOUNTER 2024-01-23 09:29 | Outpatient (AMB) | payer OTHER, SELFPAY ==
[2022-07-03 08:55] VITALS: BP 98/52; BMI 31.7
[2024-01-23 09:32] VITALS: BP 116/76; PULSE 71; BMI 32.2
--- NOTE | 2024-01-23 09:32 | A.OFFVIS_ITS ---
Vital Signs 01/23/24 09:32 Height 5 ft 4 in Weight 187 lb 6.287 oz BMI 32.2 BP 116/76 Blood Pressure Location Lt brachial Position Sitting Pulse 71 Intake Visit Reasons: [address] [facility] Intake Note: 6 month follow-up with [facility] Director Operating Room Required: Yes Director Operating Room Name: [facility] [place] Allergies No Known Allergies Allergy (Verified 07/23/23 14:26) Medication List - Last Reconciled 01/23/24 by Payam Aviles MD carvedilol (Coreg) 12.5 mg PO BID 90 days empagliflozin (Jardiance) 10 mg PO DAILY furosemide (Lasix) 40 mg PO BID sacubitril-valsartan 24-26 mg (Entresto) 1 tab PO BID spironolactone (Aldactone) 12.5 mg (1/2 x 25 mg) PO DAILY 90 days HPI Comments Details: Edin comes for follow-up. She has been doing very well from cardiac perspective. History was obtained with help of a certified demolition worker in the room. Patient says she is very busy with work and her home and does not get time to exercise regularly. However she denies any significant worsening heart failure symptoms. She is currently NYHA class 1-2. Denies any symptoms of palpitations, lightheadedness, syncope, ICD discharge. Denies any chest pain. Denies any orthopnea, PND, leg edema. Takes all her medications. No recent blood work has been performed. Echocardiogram done in July showed severely reduced LV ejection fraction 15-20% which has remained stable. [facility] Medical History ICD (implantable cardioverter-defibrillator) in place Diarrhea GERD (gastroesophageal reflux disease) Heart failure with reduced ejection fraction Cardiomyopathy Acute systolic heart failure Dyspnea Tachycardia Goiter Thyroid nodule Fibromyalgia Obese Surgical History History of endometrial ablation Hx of tubal ligation S/P thyroid biopsy H/O abdominoplasty Family History Father No problems noted. Mother No problems noted. Social History Household Members: Family Housing: House Do you presently have visiting nurse or other home services: No Alcohol intake: current Alcohol intake frequency: a few times a month Patient Tobacco Use Status: Never used Tobacco service: No Current occupational status: employed Gender identity: Female Review of Systems Const Denies chills, Denies fatigue, Denies fever(s), Denies frequent falls, Denies weakness, Denies weight gain and Denies weight loss ENT Denies dizziness Card Denies chest pain, Denies leg edema, Denies lightheadedness, Denies palpitations, Denies dyspnea, Denies dyspnea on exertion, Denies orthopnea and Denies other (loss of consciousness) Resp Denies cough, Denies dyspnea and Denies dyspnea on exertion GI Denies hematochezia and Denies change in stool character Musc Denies abnormal gait, Denies muscle weakness, Denies numbness, Denies radiating pain into limb and Denies tingling Neuro Denies abnormal gait, Denies dizziness, Denies frequent falls, Denies numbness, Denies tingling and Denies weakness Endo Denies fatigue and Denies palpitations Physical Exam Vital Signs: Last Vital Signs Pulse 71 01/23/24 09:32 BP 116/76 01/23/24 09:32 BMI result Body Mass Index 32.2 Const General: cooperative, healthy appearing, comfortable and no acute distress Orientation/consciousness: patient oriented x3 Neck Neck: Yes normal visual inspection Resp Effort & Inspection: normal respiratory effort Auscultation: clear to auscultation bilaterally, no crackles, no rales, no rhonchi and no wheezes Cardio Jugular venous distension: no JVD Rate: regular rate Rhythm: regular rhythm Heart sounds: S1 normal heart sound present, S2 normal heart sound present, no murmurs and no rubs Neuro General: patient oriented x3 Extrem General: Yes normal to inspection Psych Appearance: grossly normal Mental Status: mental status grossly normal Speech and movement: Normal speech and movement present Office Procedures Cardiac Device Check Cardiac Device Check Details: Single-chamber [facility] ICD in place. Programmed in VVI at 40 beats per minute. Ventricular pacing thresholds excellent and reprogrammed to enhance battery life. Ventricular sensing is excellent. Pacing and shock lead impedance is stable. One fast heart rate episode most suggestive of SVT at 174 beats per minute. Battery life is at 6.3 years [id number] Cardiac Device Check, single lead implantable defibrillator Procedure code (CPT) selection complete EKG Details: EKG shows normal sinus rhythm with frequent PVCs, unifocal with fixed inter coupling with left axis deviation and poor R-wave progression most likely due to lead placement [id number], Complete Assessment & Plan Assessment & Plan (1) Heart failure with reduced ejection fraction: Code(s): I50.20 - Unspecified systolic (congestive) heart failure Category: Medical Plan: Heart failure with reduced ejection fraction with persistent severe LV systolic dysfunction with NYHA class 1-2 symptoms. Currently clinically appears to be euvolemic and well compensated doing well on current therapy. Continue the same. Continue current neurohormonal modulation with carvedilol, Jardiance, Entresto as well as spironolactone. Can not further increase neurohormonal modulation due to prior intolerance. Continue current diuretic dose. Daily weight monitoring avoidance of salt loading was discussed. Additional diuretics as need be. Goals of therapy were discussed in details. She understands and agrees. Will obtain lab work today including checking magnesium given her frequent PVCs. Encouraged to increase her dedicated exercise activities. She understands and agrees. (2) ICD (implantable cardioverter-defibrillator) in place: Comment: [facility] single-chamber ICD placed, 10/28/2021 for primary prevention Code(s): Z95.810 - Presence of automatic (implantable) cardiac defibrillator Category: Medical Plan: ICD in place for primary prevention. ICD is working well. Reprogrammed for marilyn quate functioning. Will follow remotely for heart failure as well as device check. Will also follow in the clinic in 6 months time. Follow up in the clinic in 6 months time after an echocardiogram. Thank you for allowing me to partake in her care Orders: Orders CA echo transthoracic complete 6 Months I50.20 - Unspecified systolic (congestive) heart failure Basic Metabolic Panel Today I50.20 - Unspecified systolic (congestive) heart failure B Type Natriuretic Peptide Today I50.20 - Unspecified systolic (congestive) heart failure Magnesium Today I50.20 - Unspecified systolic (congestive) heart failure Coding Level of Care Code Est Pt Level 4 (90760) Diagnoses Heart failure with reduced ejection fraction I50.20 ICD (implantable cardioverter-defibrillator) in place Z95.810 CPT Codes Cardiac Device Check - Cardiac Device 4: [id number] Cardiac Device Check, single lead implantable defibrillator ([id number]) EKG - CPT: 59927-Tcpoopkrbnhdocqcs, Complete ([id number])
== END 2024-01-23 10:46 | disposition home or self-care (01) ==
PROVIDERS: PCP Internal Medicine; Visit Provider Internal Medicine Cardiovascular Disease
DX: I50.20 Unspecified systolic (congestive) heart failure (principal); Z95.810 Presence of automatic (implantable) cardiac defibrillator
CPT/HCPCS: 93010; 93282; 99214

== ENCOUNTER 2024-06-17 13:20 | Outpatient (AMB) | payer OTHER, SELFPAY ==
[2024-04-25 18:19] VITALS: BP 98/52; BMI 31.7
--- NOTE | 2024-06-17 13:26 | MHC.PC.OV ---
Vital Signs 06/17/24 13:31 Height 5 ft 4 in Weight 193 lb BMI 33.1 BP 110/72 Blood Pressure Location Lt brachial Position Sitting Intake Visit Reasons: physical exam Intake Note: Patient here for a physical exam Anode Rebuilder Required: No Accompanied by: Self / Same As Patient Allergies No Known Allergies Allergy (Verified 06/17/24 13:53) Medication List - Last Reconciled 06/17/24 by Sandi Rivas MD carvedilol (Coreg) 12.5 mg PO BID 90 days empagliflozin (Jardiance) 10 mg PO DAILY furosemide (Lasix) 40 mg PO BID sacubitril-valsartan 24-26 mg (Entresto) 1 tab PO BID spironolactone (Aldactone) 12.5 mg (1/2 x 25 mg) PO DAILY 90 days Tobacco use date assessed: 06/17/24 Dental Screening Dental Screen Date: 06/17/24 Did you have a dental visit in the last 12 months?: Yes Did you have a dental problem in the last 6 months where you did not have access to dental care?: No Was dental information given to patient?: Patient has dentist HPI HPI Comments History of Present Illness Details This is a 43-year-old female with heart failure with reduced ejection fraction that comes for her physical exam. Heart failure follow by cardiology and has not gain 5 lb in a week. Mammogram done 2023. Pap smear scheduled for this year also. No chest pain or shortness on breath. [facility] Medical History ICD (implantable cardioverter-defibrillator) in place Diarrhea GERD (gastroesophageal reflux disease) Heart failure with reduced ejection fraction Cardiomyopathy Acute systolic heart failure Dyspnea Tachycardia Goiter Thyroid nodule Fibromyalgia Obese Surgical History History of endometrial ablation Hx of tubal ligation S/P thyroid biopsy H/O abdominoplasty Family History Father No problems noted. Mother No problems noted. Social History (Updated 06/17/24 @ 13:59 by Sandi Rivas MD) Household Members: Family Housing: House Do you presently have visiting nurse or other home services: No Alcohol intake: former Patient Tobacco Use Status: Former Tobacco user e-Cigarette/Vaping Use: Never Used Second Hand Smoke Exposure: No service: No Current occupational status: employed Current occupational exposures/hazards: No Gender identity: Female Cognitive needs: No Hearing needs: No Vision needs: No Questionnaire PHQ-9 Over the last 2 weeks, how often have you been bothered by any of the following problems? 1. Little interest or pleasure in doing things: not at all 2. Feeling down, depressed, or hopeless: not at all 3. Trouble falling or staying asleep, or sleeping too much: not at all 4. Feeling tired or having little energy: not at all 5. Poor appetite or overeating: not at all 6. Feeling bad about yourself - or that you are a failure or have let yourself or your family down: not at all 7. Trouble concentrating on things, such as reading the newspaper or watching television: not at all 8. Moving or speaking so slowly that other people could have noticed. Or the opposite - being so fidgety or restless that you have been moving around a lot more than usual: not at all 9. Thoughts that you would be better off or of hurting yourself in some way: not at all Total score: 0 Depression Screening Interpretation: Negative Depression Screening Done: Yes 84861 - PHQ-9 Billing: Yes Source: Developed by Drs. Bro Godfrey, Bailey Morales, Dylan Capps and colleagues, with an educational richie from [employer]. Thrive Questionnaire Date Thrive assessed: 06/17/24 I am a: Patient What is your living situation today?: I have a steady place to live Within the past 12 months, did the food you bought not last and you didn't have the money to get more?: Never true Within the past 12 months, did you worry whether your food would run out before you got money to buy more?: Never true Do you have trouble paying for medicines?: No Do you have trouble getting transportation to medical appointments?: No Do you have trouble paying your heating and electricity bill?: No Do you have trouble taking care of your child, family member or friend?: No Do you have trouble with day-to-day activities such as bathing, preparing meals, shopping, managing finances, etc.?: No Are you currently unemployed and looking for a job?: No Are you interested in more education?: No Please select the resources that you would like help with: None Currently or been in a relationship where the following occur: No concerns reported THRIVE Score: 0 AUDIT C Alcohol Use Questionnaire (AUDIT-C) 1. How often do you have a drink containing alcohol?: Never Total Score: 0 Score Reviewed/Action Taken: No ELIZA-7 AMB Questionnaire ELIZA-7 Date ELIZA - 7 assessed: 06/17/24 Feeling nervous, anxious, or on edge: 0 = Not at all Not being able to stop or control worryin = Not at all Worrying too much about different things: 0 = Not at all Trouble relaxin = Not at all Being so restless that it is hard to sit still: 0 = Not at all Becoming easily annoyed or irritable: 0 = Not at all Feeling afraid as if something awful might happen: 0 = Not at all Total ELIZA-7 score (0-4 normal; 5-9 mild; 10-14 moderate; 15-21 severe): 0 Source: Developed by Drs. Bro Godfrey, Bailey Morales, Dylan Capps and colleagues, with an educational richie from [employer]. ELIZA-7 Assessment Billing ELIZA-7 Assessment Tool: ELIZA-7 Assessment 81712 Review of Systems Const All systems reviewed & are unremarkable except as noted in HPI and below Card Denies chest pain at rest, Denies chest pain with activity, Denies edema, Denies irregular heart rhythm, Denies claudication, Denies dyspnea, Denies dyspnea on exertion, Denies orthopnea, Denies paroxysmal nocturnal dyspnea and Denies slow heart rate Resp Denies cough, Denies dyspnea and Denies dyspnea on exertion GI Denies abdominal pain, Denies change in bowel habits, Denies excessive flatus, Denies nausea and Denies vomiting Denies urinary incontinence, Denies urinary hesitancy and Denies urinary urgency Musc Denies abnormal gait, Denies atrophy, Denies deformity and Denies limited range of motion Skin/Breast Denies bleeding lesions, Denies changing lesions and Denies rash Neuro Denies abnormal gait, Denies behavioral changes and Denies lack of coordination Psych Denies behavioral changes Physical exam (Primary Care) Vital Signs: Last Vital Signs BP 110/72 06/17/24 13:31 BMI result Body Mass Index 33.1 BMI Assessment/Plan discussion: High BMI High, discussed plan: lifestyle, weight reduction, dietary and physical activity Tobacco/Smoking Status: Tobacco use Status Tobacco use date assessed 06/17/24 06/17/24 13:32 Patient Tobacco Use Status Former Tobacco user 06/17/24 13:59 e-Cigarette/Vaping Use Never Used 06/17/24 13:59 PHQ-9: PHQ-9 Score PHQ-9: Total score 0 06/17/24 13:57 Depression Screening Interpretation: Negative Thrive Assessment: Date of Thrive Assessment Date Thrive assessed 06/17/24 06/17/24 13:32 Currently or been in a relationship where the following occur: No concerns reported HENPA Head: Yes normal to inspection, Yes normocephalic and Yes atraumatic Ears: external ears normal Eyes General: appearance normal, both eyes and all related structures Eyelids: Yes eyelids normal Conjunctivae: conjunctivae normal Neck Neck: Yes normal visual inspection and Yes supple Resp Effort & Inspection: normal respiratory effort Auscultation: clear to auscultation bilaterally Cardio Jugular venous distension: no JVD Rate: regular rate Rhythm: regular rhythm Heart sounds: S1 normal heart sound present and S2 normal heart sound present GI Inspection: Yes normal to inspection Palpation (GI): Soft to palpation and nontender Auscultation: normal bowel sounds Skin General skin exam: no rashes or lesions noted Neuro General: no focal motor deficits Extrem General: Yes full ROM Psych Appearance: grossly normal Office Procedures Flu Questionnaire Does the patient have a severe egg allergy?: No Immunizations Fluarix Triv [id number] (PF) 45 mcg (15 mcg x 3)/0.5 mL IM syringe Performing Provider: Sandi Rivas MD Performing Location: [facility] [place] [facility] Documented (not given) by: AVERY Fontaine on 06/17/24 13:40 Reason Not Given: Patient Refused Coding Level of Care Code Est Pt Prev Care 40-64y(11540) Diagnoses Physical exam Z00.00 Heart failure with reduced ejection fraction I50.20 Additional Codes ELIZA-7 Assessment Billing - ELIZA-7 Assessment Tool: ELIZA-7 Assessment 20283 ([id number]) Time Spent (min) 30 Assessment & Plan Assessment & Plan (1) Physical exam: Code(s): Z00.00 - Encounter for general adult medical examination without abnormal findings Category: Medical Plan: Repeat in a year. (2) Heart failure with reduced ejection fraction: Code(s): I50.20 - Unspecified systolic (congestive) heart failure Category: Medical Plan: Continue diuretics and Entresto. Continue carvedilol. Follow-up with Cardiology. The goal is to not gain 5 lb in a week. Orders: Orders Comprehensive [place]. Panel Fast Today I50.20 - Unspecified systolic (congestive) heart failure Lipid Panel Today I50.20 - Unspecified systolic (congestive) heart failure Influenza [id number] Immunization Today Z23 - Encounter for immunization NT-proBNP Today I50.20 - Unspecified systolic (congestive) heart failure Medications: New tizanidine 4 mg PO BEDTIME PRN 30 caps 0RF muscle spasticity 30 days hydrocortisone 1% (Anti-Itch (hydrocortisone)) 1 appl topical TID PRN 28.4 grams 0RF skin irritation 2 weeks
[2024-06-17 13:31] VITALS: BP 110/72; BMI 33.1
== END 2024-06-17 14:07 | disposition home or self-care (01) ==
LOC: HO.HMCH 13:20
PROVIDERS: PCP Internal Medicine; Visit Provider Internal Medicine
DX: Z00.00 Encounter for general adult medical examination without abnormal findings (principal); I50.20 Unspecified systolic (congestive) heart failure; Z23 Encounter for immunization

== ENCOUNTER → 2024-06-17 13:20 | Outpatient (BNVA) | payer OTHER, SELFPAY ==
[2024-04-25 18:19] VITALS: BP 98/52; BMI 31.7
== END ==
PROVIDERS: PCP Internal Medicine; Visit Provider Internal Medicine
DX: Z00.00 Encounter for general adult medical examination without abnormal findings (principal); I50.20 Unspecified systolic (congestive) heart failure
CPT/HCPCS: 90471; 96127; 99396

== ENCOUNTER 2024-07-11 10:36 | Outpatient (REF) | payer OTHER, SELFPAY ==
[2024-04-25 18:19] VITALS: BP 98/52; BMI 31.7
[2024-07-11 11:27] LABS: Alanine Aminotransferase 22 U/L (0-31); Albumin Level 4.1 g/dL (3.5-5.0); Alkaline Phosphatase 65 U/L (39-117); Anion Gap 13 (12-20); Aspartate Amino Transferase 18 U/L (5-31); Bilirubin Total 0.5 mg/dL (0.0-1.0); Blood Urea Nitrogen 15 mg/dL (9-16); Calcium 8.9 mg/dL (8.4-10.2); Carbon Dioxide 23 mmol/L (22-29); Chloride 107 mmol/L (96-108); Cholesterol 230 mg/dL (<200); Estimated Glomerular Filt Rate 53; Glucose Fasting 109 mg/dL (60-99); HDL Cholesterol 41 mg/dL (>40); LDL Cholesterol Calculated 162 mg/dL (<100); Potassium 3.9 mmol/L (3.3-5.1); Sodium 139 mmol/L (135-145); Triglycerides 138 mg/dL (<150)
[2024-07-14 21:03] LABS: NT-proBNP 554 pg/mL (<125)
== END 2024-07-11 10:37 | disposition home or self-care (01) ==
LOC: HO.LAB 10:36
PROVIDERS: Absent Provider Nurse Practitioner Family; PCP Internal Medicine; Visit Provider Internal Medicine
DX: I50.20 Unspecified systolic (congestive) heart failure (principal)
CPT/HCPCS: 36415; 80053; 80061; 83880

== ENCOUNTER → 2024-07-14 12:52 | Outpatient (REF) | payer OTHER, SELFPAY ==
[2024-04-25 18:19] VITALS: BP 98/52; BMI 31.7
--- NOTE | 2024-07-14 12:55 | CA_ITS ---
Transthoracic Echocardiogram Patient (Last, First, Middle): Edin Landaverde, Gender: Female Date of : 1980 Age: 43 Procedure Date: 07/14/2024 Procedure Type: Transthoracic Echocardiogram Location: OP Height: 162.56 cm Weight: 83.92 kg BSA: 1.89 m2 Heart Rate: bpm BP: 116 / 66 mmHg Plastic Maker: Referring MD: Payam Aviles MD Symptoms: I50.20 - Unspecified systolic (congestive) heart failure Study Quality: Adequate ECG Rhythm: Sinus with frequent extra beats Conclusions: - The left ventricular systolic function is severely decreased. The visually estimated ejection fraction is between 15-20%. - No obvious valvular pathology seen on this study. Findings Left Ventricle Severely increased left ventricular cavity size. There is normal left ventricular wall thickness. The left ventricular systolic function is severely decreased. The visually estimated ejection fraction is between 15 20%. There is severe global hypokinesis. Evidence suggests grade I (mild) diastolic dysfunction. Right Ventricle Mildly increased right ventricular cavity size. There is mildly decreased right ventricular systolic function. There is an ICD wire seen in the right ventricle. Atria Both atria are normal in size. Aortic Valve There is a normal trileaflet aortic valve. There is no aortic valve stenosis. There is no aortic valve regurgitation. Mitral Valve The mitral valve appears normal. There is trace mitral valve regurgitation. There is no mitral valve stenosis. Pulmonic Valve The pulmonic valve is likely normal. There is trace pulmonic valve regurgitation. Tricuspid Valve Normal tricuspid valve structure. There is trace tricuspid valve regurgitation. There is no evidence of pulmonary hypertension. Great Vessels The asc aorta is normal in size. Venous The inferior vena cava is normal in size and collapses greater than 50% with inspiration. Pericardium/Pleural There is no evidence of pericardial effusion. Prior Study Comparison No significant change compared to prior study dated: 07/18/2023. Recommendations, Care & Conclusions No obvious valvular pathology seen on this study. Measurements 2D Linear Measurements IVSd: 0.74 0.6-0.9/0.6-1.0 cm LVIDd: 6.96 3.9-5.3/4.2-5.9 cm LVIDd Index: 3.68 2.4-3.2/2.2-3.1 cm/m2 LVIDs: 5.92 2.0-3.6 cm LVPWd: 0.90 0.7-1.1 cm Ao Root: 3.10 2.1-3.5 cm LA Diam: 4.30 2.7-3.8/3.0-4.0 cm LAIDs Index: 2.28 1.5-2.3 cm/m2 LV Mass: 310.40 67-162/88-224 g LV Mass Index: 164.23 43-95/49-115 g/m2 LVOT Diam: 2.20 3.0+(-)1.3 cm 2D Systolic Function EF 4C: 27.60 >55% EF 2C: 34.50 >55% EF BiP: 31.50 >55% Mitral Valve MV Pk E: 0.47 MV PK A: 0.48 MV Decel Time: 195.00 E/A: 1.00 E'Lateral: 5.98 E'Medial: 3.81 E/E' Med: 12.20 E/E' Lat: 7.80 PHT: 57.00 MVA PHT: 3.86 Decel [place]: 2.38 Aortic Valve AoV Pk Malik: 1.55 AoV Pk Grad: 10.00 LVOT LVOT Pk Malik: 0.78 LVOT Mn Malik: 0.53 LVOT VTI: 0.12 LVOT Pk Grad: 2.00 LVOT Mn Grad: 2.00 LVOT Diam: 2.20 LVOT Area: 3.80 Diastolic Function MV Pk E: 0.47 MV Pk A: 0.48 E/A: 1.00 E'Medial: 3.81 E/E' Med: 12.20 E' Laterial: 5.98 E/E' Lat: 7.80 Right Ventricle TAPSE (mm): 19.00 TVS' Malik: 8.00 Tricuspid Valve TR Pk Malik: 1.63 TR Pk Grad: 11.00 RA Press: 3.00 RVSP: 14.00 Great Vessels Aorta Ao Root-2D: 3.10 2.0-3.7 cm Ao Asc: 2.80 2.1-3.4 cm Pulmonary Valve PV Pk Malik: 0.98 Peak PV Grad: 4.00 Updated in Other Vendor System with Status of Final Ulises Montoya MD electronically signed on 07/14/2024 4:02:06 PM with status of Final
== END ==
LOC: HO.CARD 12:52
PROVIDERS: PCP Internal Medicine; Visit Provider Internal Medicine Cardiovascular Disease
DX: I50.20 Unspecified systolic (congestive) heart failure (principal)
CPT/HCPCS: 93306

== ENCOUNTER → 2024-07-14 12:55 | Outpatient (BNV) | payer OTHER, SELFPAY ==
[2024-04-25 18:19] VITALS: BP 98/52; BMI 31.7
== END ==
PROVIDERS: PCP Internal Medicine; Visit Provider Internal Medicine
DX: I50.20 Unspecified systolic (congestive) heart failure (principal)
CPT/HCPCS: 93306

== ENCOUNTER 2024-07-24 13:41 | Outpatient (AMB) | payer OTHER, SELFPAY ==
[2024-04-25 18:19] VITALS: BP 98/52; BMI 31.7
--- NOTE | 2024-07-24 13:47 | A.OFFVIS_ITS ---
Vital Signs 07/24/24 13:48 Height 5 ft 4 in Weight 189 lb 9.561 oz BMI 32.5 BP 120/76 Blood Pressure Location Lt brachial Position Sitting Pulse 89 Intake Visit Reasons: 6 mth ekg w/ [facility] ck Intake Note: 6 month follow-up with ekg and [facility] check feeling good Show Card Writer Required: Yes Show Card Writer Services: Show Card Writer Present Show Card Writer Name: [facility] Allergies No Known Allergies Allergy (Verified 06/17/24 13:53) Medication List - Last Reconciled 07/24/24 by Payam Aviles MD carvedilol (Coreg) 12.5 mg PO BID 90 days empagliflozin (Jardiance) 10 mg PO DAILY furosemide (Lasix) 40 mg PO BID hydrocortisone 1% (Anti-Itch (hydrocortisone)) 1 appl topical TID PRN 2 weeks sacubitril-valsartan 24-26 mg (Entresto) 1 tab PO BID spironolactone (Aldactone) 12.5 mg (1/2 x 25 mg) PO DAILY 90 days HPI Comments Details: Edin comes for follow-up. History was obtained with help of prison psychiatrist over the telephone. Patient says overall she has been doing well. She remains fairly active but does not participate in exercise program. She denies any worsening shortness of breath, NYHA class 2 symptoms. Denies any orthopnea, PND, leg edema. Denies any abdominal distension. No lightheadedness, syncope, ICD discharge. After talking through her with the medications she says she has not been taking her evening medications regularly for few months. Her most recent echocardiogram shows persistent severe LV systolic dysfunction with LVEF of 15-20%. She said she had no apparent side effects to medications taking twice a day, she just stopped taking them [facility] Medical History ICD (implantable cardioverter-defibrillator) in place Diarrhea GERD (gastroesophageal reflux disease) Heart failure with reduced ejection fraction Cardiomyopathy Acute systolic heart failure Dyspnea Tachycardia Goiter Thyroid nodule Fibromyalgia Obese Surgical History History of endometrial ablation Hx of tubal ligation S/P thyroid biopsy H/O abdominoplasty Family History Father No problems noted. Mother No problems noted. Social History Household Members: Family Housing: House Do you presently have visiting nurse or other home services: No Alcohol intake: former Patient Tobacco Use Status: Former Tobacco user e-Cigarette/Vaping Use: Never Used Second Hand Smoke Exposure: No service: No Current occupational status: employed Current occupational exposures/hazards: No Gender identity: Female Cognitive needs: No Hearing needs: No Vision needs: No Review of Systems Const Denies chills, Denies fatigue, Denies fever(s), Denies frequent falls, Denies weakness, Denies weight gain and Denies weight loss ENT Denies dizziness Card Denies chest pain, Denies leg edema, Denies lightheadedness, Denies palpitations, Denies dyspnea, Denies dyspnea on exertion, Denies orthopnea and Denies other (loss of consciousness) Resp Denies cough, Denies dyspnea and Denies dyspnea on exertion GI Denies hematochezia and Denies change in stool character Musc Denies abnormal gait, Denies muscle weakness, Denies numbness, Denies radiating pain into limb and Denies tingling Neuro Denies abnormal gait, Denies dizziness, Denies frequent falls, Denies numbness, Denies tingling and Denies weakness Endo Denies fatigue and Denies palpitations Physical Exam Vital Signs: Last Vital Signs Pulse 89 07/24/24 13:48 BP 120/76 07/24/24 13:48 BMI result Body Mass Index 32.5 Const General: cooperative, healthy appearing, comfortable and no acute distress Orientation/consciousness: patient oriented x3 Neck Neck: Yes normal visual inspection Resp Effort & Inspection: normal respiratory effort Auscultation: clear to auscultation bilaterally, no crackles, no rales, no rhonchi and no wheezes Cardio Jugular venous distension: no JVD Rate: regular rate Rhythm: regular rhythm Heart sounds: S1 normal heart sound present, S2 normal heart sound present, no murmurs and no rubs Neuro General: patient oriented x3 Extrem General: Yes normal to inspection Psych Appearance: grossly normal Mental Status: mental status grossly normal Speech and movement: Normal speech and movement present Office Procedures Cardiac Device Check Cardiac Device Check Details: Single-chamber [facility] ICD in place. Programmed in VVI at 40 beats per minute. Ventricular pacing thresholds excellent and reprogrammed to enhance battery life. Ventricular sensing is excellent. Pacing and shock lead impedance is stable. Battery life is at about 7.9 years [id number] Cardiac Device Check, single lead implantable defibrillator Procedure code (CPT) selection complete EKG Details: EKG shows normal sinus rhythm with frequent PVCs, unifocal with fixed inter coupling with poor R-wave progression most likely due to lead placement [id number], Complete Assessment & Plan Assessment & Plan (1) Heart failure with reduced ejection fraction: Code(s): I50.20 - Unspecified systolic (congestive) heart failure Category: Medical Plan: Heart failure with reduced ejection fraction persistent and severe LV systolic dysfunction in this young woman who is not taking her medications appropriately. There was no apparent reason for it. She says she just stopped taking them few months ago. I had a discussion with help of prison psychiatrist that this is not an appropriate action. Discussed importance of taking medications to reduce risk of hospitalizations as well as reduce risk of worsening heart failure and premature that. Mechanism of action of the medications were discussed in details. She understood and she says she was start taking them. Clinically currently appears to be euvolemic and well compensated on current medical regimen. Continue the same. Represcribed carvedilol and Entresto be taken twice a day and continue Jardiance as well as spironolactone at current dose and Lasix at current dose. Follow-up blood pressure check an EKG in 1 week's time along with BMP check. Also recommend to increase her exercise activity on a regular basis which has shown to improve functionality as well as reduced hospitalization related to heart failure. She understands and agrees. (2) ICD (implantable cardioverter-defibrillator) in place: Comment: [facility] single-chamber ICD placed, 10/28/2021 for primary prevention Code(s): Z95.810 - Presence of automatic (implantable) cardiac defibrillator Category: Medical Plan: ICD in place for primary prevention. ICD is working well. Reprogrammed for adequate functioning. Will follow remotely for heart failure as well as device check as scheduled. Follow up in the clinic in 6 months time, sooner p.r.n.. Thank you for allowing me to partake in his care Orders: Orders Basic Metabolic Panel 1 Week I50.20 - Unspecified systolic (congestive) heart failure Coding Level of Care Code Est Pt Level 4 (36739) Complex EM visit Add On G2211 Diagnoses Heart failure with reduced ejection fraction I50.20 ICD (implantable cardioverter-defibrillator) in place Z95.810 CPT Codes Cardiac Device Check - Cardiac Device 4: [id number] Cardiac Device Check, single lead implantable defibrillator ([id number]) EKG - CPT: 94714-Ktiswjwjszldcoeii, Complete ([id number])
[2024-07-24 13:48] VITALS: BP 120/76; PULSE 89; BMI 32.5
== END 2024-07-24 14:23 | disposition home or self-care (01) ==
PROVIDERS: PCP Internal Medicine; Visit Provider Internal Medicine Cardiovascular Disease
DX: I50.20 Unspecified systolic (congestive) heart failure (principal); Z95.810 Presence of automatic (implantable) cardiac defibrillator
CPT/HCPCS: 93010; 93282; 99214; G2211

== ENCOUNTER → 2024-07-24 13:41 | Outpatient (BNVA) | payer OTHER, SELFPAY ==
[2024-04-25 18:19] VITALS: BP 98/52; BMI 31.7
== END ==
PROVIDERS: PCP Internal Medicine; Visit Provider Internal Medicine Cardiovascular Disease
DX: Z45.02 Encounter for adjustment and management of automatic implantable cardiac defibrillator (principal); I50.20 Unspecified systolic (congestive) heart failure
CPT/HCPCS: 93005; 99212

== ENCOUNTER 2024-07-31 14:46 | Outpatient (AMB) | payer OTHER, SELFPAY ==
[2024-04-25 18:19] VITALS: BP 98/52; BMI 31.7
--- NOTE | 2024-07-31 14:54 | AM.OFFVISNUR ---
Vital Signs 07/31/24 14:55 BP 110/64 Blood Pressure Location Lt brachial Position Sitting Pulse 66 Intake Visit Reasons: ekg, bp ck , lab work Intake Note: Nurse visit ekg and bp check started entresto feeling good going for labs now Allergies No Known Allergies Allergy (Verified 06/17/24 13:53) Assessment & Plan Assessment & Plan Orders: Orders AMB EKG-In Office Today I42.9 - Cardiomyopathy, unspecified
[2024-07-31 14:55] VITALS: BP 110/64; PULSE 66
== END 2024-07-31 15:34 | disposition home or self-care (01) ==
PROVIDERS: PCP Internal Medicine; Visit Provider Internal Medicine Cardiovascular Disease
DX: R94.31 Abnormal electrocardiogram [ECG] [EKG] (principal)
CPT/HCPCS: 93010

== ENCOUNTER 2024-07-31 14:46 | Outpatient (REF) | payer OTHER, SELFPAY ==
[2024-04-25 18:19] VITALS: BP 98/52; BMI 31.7
[2024-07-31 16:41] LABS: Anion Gap 10 (12-20); Blood Urea Nitrogen 14 mg/dL (9-16); Calcium 9.1 mg/dL (8.4-10.2); Carbon Dioxide 30 mmol/L (22-29); Chloride 105 mmol/L (96-108); Estimated Glomerular Filt Rate 56; Glucose Random 99 mg/dL (60-115); Potassium 3.6 mmol/L (3.3-5.1); Sodium 141 mmol/L (135-145)
== END 2024-07-31 14:47 | disposition home or self-care (01) ==
LOC: HO.LAB 14:46
PROVIDERS: PCP Internal Medicine; Visit Provider Internal Medicine Cardiovascular Disease
DX: I50.20 Unspecified systolic (congestive) heart failure (principal)
CPT/HCPCS: 36415; 80048; 93005

== ENCOUNTER → 2024-09-29 23:59 | Outpatient (BNV) | payer OTHER, SELFPAY ==
[2024-04-25 18:19] VITALS: BP 98/52; BMI 31.7
--- NOTE | 2024-10-06 15:48 | MHC.OFFVIS ---
Intake Visit Reasons: Remote ICD Check- [facility] Allergies No Known Allergies Allergy (Verified 06/17/24 13:53) [facility] Medical History ICD (implantable cardioverter-defibrillator) in place Diarrhea GERD (gastroesophageal reflux disease) Heart failure with reduced ejection fraction Cardiomyopathy Acute systolic heart failure Dyspnea Tachycardia Goiter Thyroid nodule Fibromyalgia Obese Surgical History History of endometrial ablation Hx of tubal ligation S/P thyroid biopsy H/O abdominoplasty Family History Father No problems noted. Mother No problems noted. Social History Household Members: Family Housing: House Do you presently have visiting nurse or other home services: No Alcohol intake: former Patient Tobacco Use Status: Former Tobacco user e-Cigarette/Vaping Use: Never Used Second Hand Smoke Exposure: No service: No Current occupational status: employed Current occupational exposures/hazards: No Gender identity: Female Cognitive needs: No Hearing needs: No Vision needs: No Office Procedures Cardiac Device Check Cardiac Device Check Details: Remote ICD function generated October 03 2024. ICD function is adequate [id number] Cardiac Interrogation, implant defibrillator w/interim Procedure code (CPT) selection complete Assessment & Plan Assessment & Plan (1) ICD (implantable cardioverter-defibrillator) in place: Comment: [facility] single-chamber ICD placed, 10/28/2021 for primary prevention Code(s): Z95.810 - Presence of automatic (implantable) cardiac defibrillator Category: Medical Plan: See above Coding Level of Care Code Procedure Only Diagnoses ICD (implantable cardioverter-defibrillator) in place Z95.810 CPT Codes Cardiac Device Check - Cardiac Device 13: [id number] Cardiac Interrogation, implant defibrillator w/interim ([id number])
== END ==
PROVIDERS: PCP Internal Medicine; Visit Provider Internal Medicine Cardiovascular Disease
DX: Z45.02 Encounter for adjustment and management of automatic implantable cardiac defibrillator (principal)
CPT/HCPCS: 93295

== ENCOUNTER → 2024-12-29 23:59 | Outpatient (BNV) | payer OTHER, SELFPAY ==
[2024-04-25 18:19] VITALS: BP 98/52; BMI 31.7
--- NOTE | 2024-12-30 10:47 | MHC.OFFVIS ---
Intake Visit Reasons: Remote ICD Check- [facility] Allergies No Known Allergies Allergy (Verified 06/17/24 13:53) [facility] Medical History ICD (implantable cardioverter-defibrillator) in place Diarrhea GERD (gastroesophageal reflux disease) Heart failure with reduced ejection fraction Cardiomyopathy Acute systolic heart failure Dyspnea Tachycardia Goiter Thyroid nodule Fibromyalgia Obese Surgical History History of endometrial ablation Hx of tubal ligation S/P thyroid biopsy H/O abdominoplasty Family History Father No problems noted. Mother No problems noted. Social History Household Members: Family Housing: House Do you presently have visiting nurse or other home services: No Alcohol intake: former Patient Tobacco Use Status: Former Tobacco user e-Cigarette/Vaping Use: Never Used Second Hand Smoke Exposure: No service: No Current occupational status: employed Current occupational exposures/hazards: No Gender identity: Female Cognitive needs: No Hearing needs: No Vision needs: No Office Procedures Cardiac Device Check Cardiac Device Check Details: Remote ICD report generated 12/29/2024. ICD function is adequate [id number] Cardiac Interrogation, implant defibrillator w/interim Procedure code (CPT) selection complete Assessment & Plan Assessment & Plan (1) ICD (implantable cardioverter-defibrillator) in place: Comment: [facility] single-chamber ICD placed, 10/28/2021 for primary prevention Code(s): Z95.810 - Presence of automatic (implantable) cardiac defibrillator Category: Medical Plan: See above Coding Level of Care Code Procedure Only Diagnoses ICD (implantable cardioverter-defibrillator) in place Z95.810 CPT Codes Cardiac Device Check - Cardiac Device 13: [id number] Cardiac Interrogation, implant defibrillator w/interim ([id number])
== END ==
PROVIDERS: PCP Internal Medicine; Visit Provider Internal Medicine Cardiovascular Disease
DX: Z45.02 Encounter for adjustment and management of automatic implantable cardiac defibrillator (principal)
CPT/HCPCS: 93295

== ENCOUNTER 2025-01-20 15:02 | Outpatient (AMB) | payer OTHER, SELFPAY ==
[2024-04-25 18:19] VITALS: BP 98/52; BMI 31.7
--- NOTE | 2025-01-20 15:13 | A.OFFVIS_ITS ---
Vital Signs 01/20/25 15:15 Height 5 ft 4 in Weight 189 lb 9.561 oz BMI 32.5 BP 120/80 Blood Pressure Location Lt brachial Position Sitting Intake Visit Reasons: 6 months f/up w/ st [facility] ck Intake Note: 6 month follow-up with st ryan check feeling good Vp Of Digital Marketing Required: No Vp Of Digital Marketing Services: Vp Of Digital Marketing Present Vp Of Digital Marketing Name: Sukhdev lyons Allergies No Known Allergies Allergy (Verified 06/17/24 13:53) Medication List - Last Reconciled 01/20/25 by Payam Aviles MD carvedilol (Coreg) 12.5 mg PO BID 90 days empagliflozin (Jardiance) 10 mg PO DAILY furosemide 40 mg PO DAILY hydrocortisone 1% (Anti-Itch (hydrocortisone)) 1 appl topical TID PRN 2 weeks sacubitril-valsartan 24-26 mg (Entresto) 1 tab PO BID spironolactone (Aldactone) 12.5 mg (1/2 x 25 mg) PO DAILY 90 days HPI Comments Details: Edin comes for follow-up. History was obtained with help of automotive parts interpreter in the room. Patient denies any significant worsening shortness of breath. Remains active. No orthopnea, PND. Was noted to have high ventricular rate on the remote monitoring was called. She is concerned about it. She had some sy mptoms but she is not very specific about it. Taking all her medications. No lightheadedness, syncope, ICD discharge. [facility] Medical History ICD (implantable cardioverter-defibrillator) in place Diarrhea GERD (gastroesophageal reflux disease) Heart failure with reduced ejection fraction Cardiomyopathy Acute systolic heart failure Dyspnea Tachycardia Goiter Thyroid nodule Fibromyalgia Obese Surgical History History of endometrial ablation Hx of tubal ligation S/P thyroid biopsy H/O abdominoplasty Family History Father No problems noted. Mother No problems noted. Social History Household Members: Family Housing: House Do you presently have visiting nurse or other home services: No Alcohol intake: former Patient Tobacco Use Status: Former Tobacco user e-Cigarette/Vaping Use: Never Used Second Hand Smoke Exposure: No service: No Current occupational status: employed Current occupational exposures/hazards: No Gender identity: Female Cognitive needs: No Hearing needs: No Vision needs: No Review of Systems Const Denies chills, Denies fatigue, Denies fever(s), Denies frequent falls, Denies weakness, Denies weight gain and Denies weight loss ENT Denies dizziness Card Denies chest pain, Denies leg edema, Denies lightheadedness, Denies palpitations, Denies dyspnea, Denies dyspnea on exertion, Denies orthopnea and Denies other (loss of consciousness) Resp Denies cough, Denies dyspnea and Denies dyspnea on exertion GI Denies hematochezia and Denies change in stool character Musc Denies abnormal gait, Denies muscle weakness, Denies numbness, Denies radiating pain into limb and Denies tingling Neuro Denies abnormal gait, Denies dizziness, Denies frequent falls, Denies numbness, Denies tingling and Denies weakness Endo Denies fatigue and Denies palpitations Physical Exam Vital Signs: Last Vital Signs BP 120/80 01/20/25 15:15 BMI result Body Mass Index 32.5 Const General: cooperative, healthy appearing, comfortable and no acute distress Orientation/consciousness: patient oriented x3 Neck Neck: Yes normal visual inspection Resp Effort & Inspection: normal respiratory effort Auscultation: clear to auscultation bilaterally, no crackles, no rales, no rhonchi and no wheezes Cardio Jugular venous distension: no JVD Rate: regular rate Rhythm: regular rhythm Heart sounds: S1 normal heart sound present, S2 normal heart sound present, no murmurs and no rubs Neuro General: patient oriented x3 Extrem General: Yes normal to inspection Psych Appearance: grossly normal Mental Status: mental status grossly normal Speech and movement: Normal speech and movement present Office Procedures Cardiac Device Check Cardiac Device Check Details: Single-chamber [facility] ICD in place. Programmed in VVI at 40 beats per minute. Two episodes of high ventricular rate consistent most likely nonsustained VT noted. No therapies delivered. Ventricular sensing is excellent. Pacing thresholds excellent. Pacing and shock lead impedance CPAP battery life is adequate. [id number] Cardiac Device Check, single lead implantable defibrillator Procedure code (CPT) selection complete Assessment & Plan Assessment & Plan (1) Heart failure with reduced ejection fraction: Code(s): I50.20 - Unspecified systolic (congestive) heart failure Category: Medical Plan: Heart failure with reduced ejection fraction severe LV systolic dysfunction. Follow-up echocardiogram 6 months time. Will maximize carvedilol to 25 mg b.i.d.. Continue Jardiance, spironolactone as Entresto. Continue monitor blood pressure at home. Continue current diuretic regimen. Daily weight monitoring and avoidance salt loading was discussed. Daily weight monitoring avoidance salt loading was discussed. Management was discussed in details. Advised to call me with progressive symptoms. Follow up in 2 weeks for blood pressure check. Follow up with me in 6 months time. Continue maximize neurohormonal modulation including Entresto as tolerated (2) ICD (implantable cardioverter-defibrillator) in place: Comment: [facility] single-chamber ICD placed, 10/28/2021 for primary prevention Code(s): Z95.810 - Presence of automatic (implantable) cardiac defibrillator Category: Medical Plan: ICD in place for primary prevention. Working well. Reprogrammed for adequate function. Will follow remotely. Noted to have what appears to be nonsustained VT. Discussed with the about the findings. Avoidance of stimulants was discussed. Will increase carvedilol as above. No other therapy needed. Will follow Will follow up in the clinic in 2 weeks for blood pressure check and with me in 6 months. Thank you for allowing me to partake in her care Orders: Orders CA echo transthoracic complete 6 Months I50.20 - Unspecified systolic (congestive) heart failure Medications: New carvedilol (Coreg) must administer with a meal/food 25 mg PO BID 60 tabs 5RF Discontinued carvedilol (Coreg) must administer with a meal/food Discontinued Reason: Doctor's Order 12.5 mg PO BID 90 days 180 tabs 3RF I50.20 - Unspecified systolic (congestive) heart failure Coding Level of Care Code Est Pt Level 4 (51107) Complex EM visit Add On G2211 Diagnoses Heart failure with reduced ejection fraction I50.20 ICD (implantable cardioverter-defibrillator) in place Z95.810 CPT Codes Cardiac Device Check - Cardiac Device 4: [id number] Cardiac Device Check, single lead implantable defibrillator ([id number])
[2025-01-20 15:15] VITALS: BP 120/80; BMI 32.5
--- OUTSIDE RECORDS SUMMARY | 2025-01-20 18:09 | XMS_ITS | Clinical Summary ---
Author Organization [facility] Address [address] [place] [address] Care Team Providers Care Precision Honing Machine Operator Name Role Phone Radha Donahue MD Primary Care Provider [phone] Allergies No known active allergies Medications albuterol HFA (PROAIR HFA ; PROVENTIL HFA ; VENTOLIN HFA) 90 mcg/actuation inhaler Inhale 2 puffs by mouth every 4 (four) hours if needed for shortness of breath or wheezing (Cough). 6 Active Active Problems Problem Noted Date Diagnosed Date Low back pain 03/12/2015 Overview (08/12/2024): MRI 112/08 mod central disc herniation L4-5, central canal narrowing Lower abdominal pain 03/12/2015 Neck pain 03/12/2015 Thyroid nodule 03/12/2015 Immunizations Name Administration Dates Next Due Tdap Tetanus diptheria acell ular pertussis (Boostrix; Adacel) 7yo and older 03/12/2015 Surgical History Surgery Date Site/Laterality Comments TUBAL LIGATION PROCEDURE: HISTORICAL TUBAL LIGATION SECTION PROCEDURE: HISTORICAL Family History Relation Name Status Comments Brother 1 Alive Brother 2 Alive Brother 3 Alive Brother 4 Alive Father Mother Sister Alive Son 1 Alive Son 2 Alive Social History Tobacco Use Types Packs/Day Years Used Date Smoking Tobacco: Never Alcohol Use Standard Drinks/Week Comments No 0 (1 standard drink = 0.6 oz pur e alcohol) Comments Unknown Sex and Gender Information Value Date Recorded Sex Assigned at Not on file Legal Sex Female 2:30 AM EST Gender Identity Not on file Sexual Orientation Not on file Obstetrics History Plan of Treatment Health Maintenance Due Date Last Done Comments Breast Cancer Screening 1980 Hepatitis B Vaccines (1 of 3 - 19+ 3-dose series) 1999 Cervical Cancer Screening: P ap Smear 03/12/2018 03/12/2015 COVID-19 Vaccine (2023-2 5 season) 2024 Depression Screening 08/12/2024 HIV Screening 08/12/2024 Hepatitis C Screening 08/12/2024 Social Influencers of Health Screening 08/12/2024 DTaP,Tdap,and Td Vaccines (2 - Td or Tdap) 03/12/2025 03/12/2015 Influenza Vaccine (Season Ended) 2025 HIB Vaccines Aged Out No longer eligi ble based on patient's age to complete this topic HPV Vaccines Aged Out No longer eligi ble based on patient's age to complete this topic Hepatitis A Vaccines Aged Out No long er eligible based on patient's age to complete this topic IPV Vaccines Aged Out No longer eligi ble based on patient's age to complete this topic MMR Vaccines Aged Out No longer eligi ble based on patient's age to complete this topic Meningococcal ACWY Vaccine Aged Out N o longer eligible based on patient's age to complete this topic Meningococcal B Vaccine Aged Out No l onger eligible based on patient's age to complete this topic Pneumococcal Vaccine: Pediat rics (0 to 5 Years) and At-Risk Patients (6 to 64 Years) Aged Out No longer eligi ble based on patient's age to complete this topic RSV Immunization Patients Un chintan 20 months Aged Out No longer eligible b ased on patient's age to complete this topic Varicella Vaccines Aged Out No longer eligible based on patient's age to complete this topic Procedures Procedure Name Priority Date/Time Associated Diagnosis Comments PAP SMEAR Routine 03/12/2015 from Last 3 Months or Most Recently Relevant to Health Maintenance Results * Pap Smear (03/12/2015) Pap smear Abstracted, No Interpretation us Historical Provider MD HEALTH MAINTENANCE Final Result from Last 3 Months or Most Recently Relevant to Health Maintenance Care Teams Precision Honing Machine Operator Relationship Specialty Start Date End Date Radha Donahue MD [address] [place] [address] PCP - General Internal Medicine 10/06/15
== END 2025-01-20 15:34 | disposition home or self-care (01) ==
LOC: HO.HCS 15:02
PROVIDERS: PCP Internal Medicine; Visit Provider Internal Medicine Cardiovascular Disease
DX: I50.20 Unspecified systolic (congestive) heart failure (principal); Z95.810 Presence of automatic (implantable) cardiac defibrillator
CPT/HCPCS: 93282; 99214; G2211

== ENCOUNTER → 2025-01-20 15:02 | Outpatient (BNVA) | payer OTHER, SELFPAY ==
[2024-04-25 18:19] VITALS: BP 98/52; BMI 31.7
== END ==
PROVIDERS: PCP Internal Medicine; Visit Provider Internal Medicine Cardiovascular Disease
DX: I50.20 Unspecified systolic (congestive) heart failure (principal); Z95.810 Presence of automatic (implantable) cardiac defibrillator
CPT/HCPCS: 93282; 99212

== ENCOUNTER 2025-03-26 17:16 | Outpatient (AMB) | payer OTHER, SELFPAY ==
[2024-04-25 18:19] VITALS: BP 98/52; BMI 31.7
[2025-03-26 17:17] VITALS: BP 100/70; PULSE 90; RESP 18; O2SAT 94; BMI 32.1
--- NOTE | 2025-03-26 17:17 | A.OFFPC_ITS ---
Vital Signs 03/26/25 17:17 Height 5 ft 4 in Weight 187 lb 2 oz BMI 32.1 BP 100/70 Blood Pressure Location Lt brachial Position Sitting Respiration 18 Pulse 90 Pulse Source Pulse Oximeter Temp Source Temporal Artery Scan Pulse Oximetry (%) 94 Oxygen Delivery Method Room Air Intake Visit Reasons: dm Gear Finisher Required: No Accompanied by: Self / Same As Patient Allergies No Known Allergies Allergy (Verified 03/26/25 17:25) Medication List - Last Reconciled 03/26/25 by Sandi Rivas MD carvedilol (Coreg) 25 mg PO BID empagliflozin (Jardiance) 10 mg PO DAILY furosemide 40 mg PO DAILY hydrocortisone 1% (Anti-Itch (hydrocortisone)) 1 appl topical TID PRN 2 weeks sacubitril-valsartan 24-26 mg (Entresto) 1 tab PO BID spironolactone 12.5 mg (1/2 x 25 mg) PO DAILY Tobacco use date assessed: 03/26/25 Dental Screening Dental Screen Date: 03/26/25 Did you have a dental visit in the last 12 months?: Yes Did you have a dental problem in the last 6 months where you did not have access to dental care?: No Was dental information given to patient?: Patient has dentist HPI HPI Comments History of Present Illness Details The patient is a 44-year-old female presenting with a follow-up for congestive heart failure management. The patient has been under the care of a crane ladle person since January, with the last echocardiogram performed in July showing an ejection fraction of 15 to 20%. She is currently on a medication regimen including Jardiance, furosemide, Entresto, spironolactone, and carvedilol. The patient denies experiencing chest pain or dyspnea, and the crane ladle person has noted an absence of symptoms. She adheres to her medication regimen, taking six pills in the morning and one at night. The patient reports dizziness, for which a patch has been prescribed to manage symptoms during her upcoming cruise. [facility] Medical History (Updated 03/26/25 @ 17:37 by Sandi Rivas MD) ICD (implantable cardioverter-defibrillator) in place Diarrhea GERD (gastroesophageal reflux disease) Heart failure with reduced ejection fraction Cardiomyopathy Acute systolic heart failure Dyspnea Tachycardia Goiter Thyroid nodule Fibromyalgia Obese Surgical History History of endometrial ablation Hx of tubal ligation S/P thyroid biopsy H/O abdominoplasty Family History Father No problems noted. Mother No problems noted. Social History Household Members: Family Housing: House Do you presently have visiting nurse or other home services: No Alcohol intake: former Patient Tobacco Use Status: Former Tobacco user e-Cigarette/Vaping Use: Never Used Second Hand Smoke Exposure: No service: No Current occupational status: employed Current occupational exposures/hazards: No Gender identity: Female Cognitive needs: No Hearing needs: No Vision needs: No Questionnaire PHQ-9 Over the last 2 weeks, how often have you been bothered by any of the following problems? 1. Little interest or pleasure in doing things: not at all 2. Feeling down, depressed, or hopeless: not at all 3. Trouble falling or staying asleep, or sleeping too much: not at all 4. Feeling tired or having little energy: not at all 5. Poor appetite or overeating: not at all 6. Feeling bad about yourself - or that you are a failure or have let yourself or your family down: not at all 7. Trouble concentrating on things, such as reading the newspaper or watching television: not at all 8. Moving or speaking so slowly that other people could have noticed. Or the opposite - being so fidgety or restless that you have been moving around a lot more than usual: not at all 9. Thoughts that you would be better off or of hurting yourself in some way: not at all Total score: 0 Depression Screening Interpretation: Negative Depression Screening Done: Yes 55549 - PHQ-9 Billing: Yes Source: Developed by Drs. Bro Godfrey, Bailey Morales, Dylan Capps and colleagues, with an educational richie from [employer]. Thrive Questionnaire Date Thrive assessed: 03/26/25 I am a: Patient What is your living situation today?: I have a steady place to live Within the past 12 months, did the food you bought not last and you didn't have the money to get more?: Never true Within the past 12 months, did you worry whether your food would run out before you got money to buy more?: Never true Do you have trouble paying for medicines?: No Do you have trouble getting transportation to medical appointments?: No Do you have trouble paying your heating and electricity bill?: No Do you have trouble taking care of your child, family member or friend?: No Do you have trouble with day-to-day activities such as bathing, preparing meals, shopping, managing finances, etc.?: No Are you currently unemployed and looking for a job?: No Are you interested in more education?: No Please select the resources that you would like help with: None Currently or been in a relationship where the following occur: No concerns reported THRIVE Score: 0 AUDIT C Alcohol Use Questionnaire (AUDIT-C) 1. How often do you have a drink containing alcohol?: Never Total Score: 0 Score Reviewed/Action Taken: No ELIZA-7 AMB Questionnaire ELIZA-7 Date ELIZA - 7 assessed: 03/26/25 Feeling nervous, anxious, or on edge: 0 = Not at all Not being able to stop or control worryin = Not at all Worrying too much about different things: 0 = Not at all Trouble relaxin = Not at all Being so restless that it is hard to sit still: 0 = Not at all Becoming easily annoyed or irritable: 0 = Not at all Feeling afraid as if something awful might happen: 0 = Not at all Total ELIZA-7 score (0-4 normal; 5-9 mild; 10-14 moderate; 15-21 severe): 0 Source: Developed by Drs. Bro Godfrey, Bailey Morales, Dylan Capps and colleagues, with an educational richie from [employer]. ELIZA-7 Assessment Billing ELIZA-7 Assessment Tool: ELIZA-7 Assessment 81814 Review of Systems Const All systems reviewed & are unremarkable except as noted in HPI and below Card Denies chest pain at rest, Denies chest pain with activity, Denies edema, Denies irregular heart rhythm, Denies claudication, Denies dyspnea, Denies dyspnea on exertion, Denies orthopnea, Denies paroxysmal nocturnal dyspnea and Denies slow heart rate Resp Denies cough, Denies dyspnea and Denies dyspnea on exertion GI Denies abdominal pain, Denies change in bowel habits, Denies excessive flatus, Denies nausea and Denies vomiting Denies urinary incontinence, Denies urinary hesitancy and Denies urinary urgency Musc Denies atrophy, Denies deformity and Denies limited range of motion Physical exam (Primary Care) Vital Signs: Last Vital Signs Pulse 90 03/26/25 17:17 Resp 18 03/26/25 17:17 BP 100/70 03/26/25 17:17 Pulse Ox 94 03/26/25 17:17 Oxygen Delivery Method Room Air 03/26/25 17:17 BMI result Body Mass Index 32.1 BMI Assessment/Plan discussion: High BMI High, discussed plan: lifestyle, weight reduction, dietary and physical activity Tobacco/Smoking Status: Tobacco use Status Tobacco use date assessed 03/26/25 03/26/25 17:20 Patient Tobacco Use Status Former Tobacco user 03/26/25 17:20 e-Cigarette/Vaping Use Never Used 03/26/25 17:20 PHQ-9: PHQ-9 Score PHQ-9: Total score 0 03/26/25 17:23 Depression Screening Interpretation: Negative Thrive Assessment: Date of Thrive Assessment Date Thrive assessed 03/26/25 03/26/25 17:20 Currently or been in a relationship where the following occur: No concerns reported Resp Effort & Inspection: normal respiratory effort Auscultation: clear to auscultation bilaterally Cardio Jugular venous distension: no JVD Rate: regular rate Rhythm: regular rhythm Heart sounds: S1 normal heart sound present and S2 normal heart sound present Extrem General: Yes full ROM Coding Level of Care Code Est Pt Level 4 (33228) Complex EM visit Add On G2211 Diagnoses Abdominal gas pain R14.1 Right foot pain M79.671 Heart failure with reduced ejection fraction I50.20 Motion sickness T75.3XXA Additional Codes ELIZA-7 Assessment Billing - ELIZA-7 Assessment Tool: ELIZA-7 Assessment 01800 ([id number]) PHQ-9 - 44432 - PHQ-9 Billing: Yes ([id number]) Time Spent (min) 20 Assessment & Plan Assessment & Plan (1) Abdominal gas pain: Code(s): R14.1 - Gas pain Category: Medical (2) Right foot pain: Code(s): M79.671 - Pain in right foot Category: Medical (3) Heart failure with reduced ejection fraction: Code(s): I50.20 - Unspecified systolic (congestive) heart failure Category: Medical (4) Motion sickness: Code(s): T75.3XXA - Motion sickness, initial encounter Category: Medical Plan The patient will continue her current medication regimen, which includes Jardiance, furosemide, Entresto, spironolactone, and carvedilol, as these are crucial for managing her congestive heart failure. An echocardiogram is recommended every six months to monitor her ejection fraction, with the next one due in January. The patient has been prescribed a patch to manage dizziness during her upcoming cruise, with instructions on potential side effects such as pupil dilation. Patient was informed and verbally consented to the use of an ambient scribe for clinic note documentation during this visit. Orders: Orders Lipid Panel 4 Months E78.5 - Hyperlipidemia, unspecified Comprehensive [place]. Panel Fast 4 Months I50.20 - Unspecified systolic (congestive) heart failure XR foot RT 2V Today M79.671 - Pain in right foot NT-proBNP 4 Months I50.20 - Unspecified systolic (congestive) heart failure Medications: New scopolamine base 1 patch transdermal Q3D PRN 4 ea 0RF nausea and vomiting 7 days simethicone (Gas Relief (simethicone)) 250 mg (2 x 125 mg) PO BID PRN 180 caps 1RF abdominal distention 90 days R14.1 - Gas pain Refilled empagliflozin (Jardiance) 10 mg PO DAILY 90 tabs 3RF
--- OUTSIDE RECORDS SUMMARY | 2025-03-26 17:18 | XMS_ITS | Clinical Summary ---
Author Organization [facility] Address [address] [place] [address] Care Team Providers Care Drawing Checker Name Role Phone Radha Donahue MD Primary Care Provider [phone] Allergies No known active allergies Medications albuterol [...] P ap Smear 03/12/2018 03/12/2015 COVID-19 Vaccine ( - 2023-2 5 season) 2024 HIV Screening 08/12/2024 Hepatitis C Screening 08/12/2024 Social Influencers of Health Screening 08/12/2024 Depression Screening 08/13/2024 DTaP,Tdap,and Td Vaccines (2 - Td or Tdap) 03/12/2025 03/12/2015 Influenza Vaccine (#1) 2025 HIB Vaccines Aged Out No longer [...] 5 Years) and At-Risk Patients (6 to 49 Years) Aged Out No longer eligi ble [...] smear Abstracted, No Interpretation us Historical Provider HEALTH MAINTENANCE Final Result from Last 3 Months or Most Recently Relevant to Health Maintenance Care Teams Drawing Checker Relationship Specialty Start Date End Date Radha Donahue MD [address] [place] [address] PCP - General Internal Medicine 10/06/15
== END 2025-03-26 17:33 | disposition home or self-care (01) ==
LOC: HO.HMCH 17:16
PROVIDERS: PCP Internal Medicine; Visit Provider Internal Medicine
DX: R14.1 Gas pain (principal); M79.671 Pain in right foot; I50.20 Unspecified systolic (congestive) heart failure; T75.3XXA Motion sickness, initial encounter

== ENCOUNTER → 2025-03-26 17:16 | Outpatient (BNVA) | payer OTHER, SELFPAY ==
[2024-04-25 18:19] VITALS: BP 98/52; BMI 31.7
== END ==
PROVIDERS: PCP Internal Medicine; Visit Provider Internal Medicine
DX: E11.9 Type 2 diabetes mellitus without complications (principal); R14.1 Gas pain; M79.671 Pain in right foot; I50.20 Unspecified systolic (congestive) heart failure; T75.3XXA Motion sickness, initial encounter; Y92.818 Other transport vehicle as the place of occurrence of the external cause; Y93.9 Activity, unspecified; Y99.9 Unspecified external cause status
CPT/HCPCS: 96127; 99212

== ENCOUNTER → 2025-04-05 23:59 | Outpatient (BNV) | payer OTHER, SELFPAY ==
[2024-04-25 18:19] VITALS: BP 98/52; BMI 31.7
--- NOTE | 2025-04-08 10:44 | MHC.OFFVIS ---
Intake Visit Reasons: Remote ICD check- [facility] Allergies No Known Allergies Allergy (Verified 03/26/25 17:25) [facility] Medical History ICD (implantable cardioverter-defibrillator) in place Diarrhea GERD (gastroesophageal reflux disease) Heart failure with reduced ejection fraction Cardiomyopathy Acute systolic heart failure Dyspnea Tachycardia Goiter Thyroid nodule Fibromyalgia Obese Surgical History History of endometrial ablation Hx of tubal ligation S/P thyroid biopsy H/O abdominoplasty Family History Father No problems noted. Mother No problems noted. Social History Household Members: Family Housing: House Do you presently have visiting nurse or other home services: No Alcohol intake: former Patient Tobacco Use Status: Former Tobacco user e-Cigarette/Vaping Use: Never Used Second Hand Smoke Exposure: No service: No Current occupational status: employed Current occupational exposures/hazards: No Gender identity: Female Cognitive needs: No Hearing needs: No Vision needs: No Office Procedures Cardiac Device Check Cardiac Device Check Details: Remote ICD report generated 04/05/2025. ICD function is adequate. Few high ventricular rate episode noted, 1 of them appears to be nonsustained VT others possibly SVT although EGMs strips were not available [id number] Cardiac Interrogation, implant defibrillator w/interim Procedure code (CPT) selection complete Assessment & Plan Assessment & Plan (1) ICD (implantable cardioverter-defibrillator) in place: Comment: [facility] single-chamber ICD placed, 10/28/2021 for primary prevention Code(s): Z95.810 - Presence of automatic (implantable) cardiac defibrillator Category: Medical Plan: See above Coding Level of Care Code Procedure Only Diagnoses ICD (implantable cardioverter-defibrillator) in place Z95.810 CPT Codes Cardiac Device Check - Cardiac Device 13: [id number] Cardiac Interrogation, implant defibrillator w/interim ([id number])
== END ==
PROVIDERS: PCP Internal Medicine; Visit Provider Internal Medicine Cardiovascular Disease
DX: R00.0 Tachycardia, unspecified (principal); Z95.810 Presence of automatic (implantable) cardiac defibrillator
CPT/HCPCS: 93295

== ENCOUNTER → 2025-07-28 14:00 | Outpatient (REF) | payer OTHER, SELFPAY ==
[2024-04-25 18:19] VITALS: BP 98/52; BMI 31.7
--- NOTE | 2025-07-28 14:07 | CA_ITS ---
Transthoracic Echocardiogram Patient (Last, First, Middle): Edin Landaverde, Gender: Female Date of : 1980 Age: 44 Procedure Date: 07/28/2025 Procedure Type: Transthoracic Echocardiogram Location: OP Height: 165. cm Weight: 85.28 kg BSA: 1.93 m2 Heart Rate: 75 bpm BP: 90 / 65 mmHg Procurement Inspector: YULISSA Referring MD: Payam Aviles MD Telecommunications Network Engineer: Payam Aviles MD Symptoms: HFrEF Study Quality: Adequate ECG Rhythm: Sinus Conclusions: - 1. Severely dilated left ventricle with severely reduced LV ejection fraction 20-25%, globally hypokinetic process with impaired relaxation filling pattern 2. Normal cardiac valvular Dopplers 3. Normal RV systolic pressure 4. No gross pericardial effusion Findings Left Ventricle Severely increased left ventricular cavity size. There is normal left ventricular wall thickness. The left ventricular systolic function is severely decreased. The visually estimated ejection fraction is between 20 25%. Spectral Doppler is indicative of an impaired relaxation filling pattern. E/E prime ratio is between 8 and 15 consistent with indeterminate filling pressures. Right Ventricle Normal right ventricular cavity size and systolic function. There is an ICD wire seen in the right ventricle. Atria Both atria are normal in size. There is no evidence of interatrial shunt. Aortic Valve Normal aortic valve structure and function. There is no aortic valve stenosis. There is no aortic valve regurgitation. Mitral Valve There is mild anterior and posterior mitral leaflet thickening. The anterior mitral leaflet has restricted mobility and the posterior mitral leaflet has restricted mobility. There is trace mitral valve regurgitation. There is no mitral valve stenosis. There is mild mitral annular dilatation. Pulmonic Valve The pulmonic valve is likely normal. There is trace pulmonic valve regurgitation. Tricuspid Valve Normal tricuspid valve structure. There is trace tricuspid valve regurgitation. The right ventricular systolic pressure is normal. The right ventricular systolic pressure is 11 mmHg. Normal right atrial pressure. There is no evidence of pulmonary hypertension. Great Vessels All visible segments of the aorta are normal in size. The pulmonary artery was not well visualized. Venous The inferior vena cava is normal in size and collapses greater than 50% with inspiration. Pericardium/Pleural There is no evidence of pericardial effusion. Prior Study Comparison Changes noted compared to prior study dated: 07/14/2024. LV ejection fraction has marginally improved Measurements 2D Linear Measurements IVSd: 0.68 0.6-0.9/0.6-1.0 cm LVIDd: 7.34 3.9-5.3/4.2-5.9 cm LVIDd Index: 3.80 2.4-3.2/2.2-3.1 cm/m2 LVIDs: 5.69 2.0-3.6 cm LVPWd: 0.83 0.7-1.1 cm LA Diam: 3.70 2.7-3.8/3.0-4.0 cm LAIDs Index: 1.92 1.5-2.3 cm/m2 LV Mass: 307.42 67-162/88-224 g LV Mass Index: 159.28 43-95/49-115 g/m2 LVOT Diam: 2.10 3.0+(-)1.3 cm 2D Systolic Function EF 4C: 28.30 >55% EF 2C: 23.60 >55% EF BiP: 24.50 >55% Mitral Valve MV Pk E: 0.53 MV PK A: 0.79 MV Decel Time: 338.00 E/A: 0.70 E'Lateral: 6.23 E'Medial: 4.05 E/E' Med: 13.10 E/E' Lat: 8.50 PHT: 99.00 MVA PHT: 2.22 Decel Lyman: 1.57 Aortic Valve AoV Pk Malik: 1.18 AoV Mn Malik: 0.87 AoV VTI: 0.20 AoV Pk Grad: 6.00 Aov Mn Grad: 3.00 CYNTHIA Cont.VTI: 2.15 LVOT LVOT Pk Malik: 0.83 LVOT Mn Malik: 0.56 LVOT VTI: 0.13 LVOT Pk Grad: 3.00 LVOT Mn Grad: 2.00 LVOT Diam: 2.10 LVOT Area: 3.46 Diastolic Function MV Pk E: 0.53 MV Pk A: 0.79 E/A: 0.70 E'Medial: 4.05 E/E' Med: 13.10 E' Laterial: 6.23 E/E' Lat: 8.50 Right Ventricle TAPSE (mm): 19.30 TVS' Malik: 10.60 Tricuspid Valve TR Pk Malik: 1.38 TR Pk Grad: 8.00 RA Press: 3.00 RVSP: 11.00 Great Vessels Aorta Sinus of Valsalva: 3.10 2.0-3.5 cm Ao Asc: 3.20 2.1-3.4 cm Ao Arch: 2.90 Pulmonary Valve PV Pk Malik: 0.81 Peak PV Grad: 3.00 Updated in Other Vendor System with Status of Final Payam Aviles MD electronically signed on 07/29/2025 11:11:21 AM with status of Final
--- OUTSIDE RECORDS SUMMARY | 2025-07-28 18:11 | XMS_ITS | Encounter Summary ---
Author Organization [facility] Address [address] [place] [id number] Phone Care Team Providers Care Slate Splitter Name Role Phone Tavia Hdz Primary Care Provider [phone] Encounter Details Date Type Department Care Team (Late st Contact Info) Description 07/23/2023 Procedure [facility] [address] [place] [address] Social History Tobacco Use Types Packs/Day Years Used Date Smoking Tobacco: Former Smokeless Tobacco: Never Alcohol Use Standard Drinks/Week Comments Not Currently 0 (1 standard drink = 0.6 oz pur e alcohol) Education Answer Date Recorded Are you interested in more education? Not on kermit e 12/09/2022 Are you concerned about learning? Not on file 12/09/2022 No 12/09/2022 No 12/09/2022 Digital Access Answer Date Recorded No 01/03/2023 No 01/03/2023 Reliable internet access at home? Not on file 01/03/2023 Device with a working camera? Not on file Intimate Partner Violence Answer Date R ecorded Are you denied basic needs s uch as food, clothing, or medical care? No 07/23/2023 In the past 12 months have y ou been in a relationship with a person who hurts, threatens, or tries to control you? No 07/23/2023 Are you denied basic needs s uch as food, clothing, or medical care? No 07/23/2023 In the past 12 months have y ou been in a relationship with a person who hurts, threatens, or tries to control you? No 07/23/2023 Comments Unknown Sex and Gender Information Value Date Recorded Sex Assigned at Not on file Legal Sex Female 11:53 AM EDT Gender Identity Not on file Sexual Orientation Not on file documented as of this encounter Plan of Treatment Upcoming Encounters Date Type Department Care Team (Late st Contact Info) Description 10/19/2025 11:30 AM EDT Office Visit [facility] [address] [place] [id number] Michael Gimenez DO [address] [place] [address] documented as of this encounter Visit Diagnoses Not on filedocumented in this encounter Care Teams Slate Splitter Relationship Specialty Start Date End Date Tavia Hdz PA PCP - General Unknown Provider Specialty 01/28/21 documented as of this encounter Additional Source Comments The information contained in this document represents components of the legal health record. It is not the complete legal health record.[facility]
--- OUTSIDE RECORDS SUMMARY | 2025-07-28 18:11 | XMS_ITS | Clinical Summary ---
Author Organization [facility] Address [address] [facility] [address] [place] [address] Phone Care Team Providers Care Shank Boner Name Role Phone Tavia Hdz Primary Care Provider [phone] Allergies Active Allergy Reactions Criticality Noted Date Comments Adhesive 07/12/2023 Medications furosemide (LASIX) 40 MG tablet Take 40 mg by mouth daily. Active carvedilol (COREG) 3.125 MG tablet Take 3.125 mg by mouth 2 (two) times a day with meals. Active ergocalciferol (DRISDOL) 50,000 unit capsule Take 50,000 Units by mouth once a week. Active multivitamin-Ca- iron-minerals (MULTIPLE VITAMIN, WOMENS) Tab Take by mouth. Active spironolactone (ALDACTONE) 25 MG tablet Take 25 mg by mouth daily. 1/2 tablet daily Active sacubitril-valsa rtan 24-26 mg per tablet Take 1 tablet by mouth 2 (two) times a day. Active carvedilol (COREG) 12.5 MG tablet Take 12.5 mg by mouth 2 (two) times a day with meals. 07/31/2023 Active JARDIANCE 10 mg tablet Take 10 mg by mouth daily. 09/25/2023 Active Active Problems Problem Noted Date Diagnosed Date Nontoxic multinodular goiter 03/08/2021 Assessment & Plan (07/12/2023 3:41 PM EST): This is a patient with a large multinodular goiter she has some mild obstructive symptoms such as dyspnea, dysphonia and occasional dysphagia. Apparently they are not too severe. She is uncertain if she wants to proceed with surgical option. She wants to repeat ultrasound in have ultrasound-guided fine-needle aspiration which was supposed to be done 2 years ago. I will request an ultrasound. I will also request ultrasound-guided fine-needle aspiration of the right and left lobe nodules. She will follow in 3 months. Assessment & Plan (03/18/2021 9:49 AM EDT): The patient is having obstructive symptoms. She thinks that she may want to have her entire thyroid gland resected. But at the moment she is still uncertain. So we will proceed with ultrasound-guided fine-needle aspiration of both the right and left nodules. She also has to be cleared for thyroidectomy by cardiology. She has been worked up by the sew out operator at this moment. Unfortunately the next opening I have for ultrasound-guided fine-needle aspiration is May 18, 2021. And after I will obtain cytology report I can refer her for endocrine surgery evaluation. Assessment & Plan (03/08/2021 2:18 PM EDT): This is a patient with a nontoxic multinodular goiter with at least 2 nodules. There are isthmus nodule is visibly grown. This nodule has been biopsied 3 times and was found to be benign. The patient is now having obstructive symptoms. She has been chemically euthyroid TSH levels appears low normal. TPO and thyroglobulin antibodies have been done in the past. They did not appear to be elevated when they were checked at [facility] in the past. The lab work was also repeated at [facility] but I do not have the report. I will repeat ultrasound of the thyroid gland at [facility]. I have scheduled the patient for repeat biopsy in April 13, 2021. She would like to have isthmusectomy. However she informs me that she has cardiac insufficiency. She states that her ejection fraction was 15%. Her sew out operator is doing MRI of the chest. She will have to get cardiac clearance if she requires isthmusectomy. Family History Medical History Relation Comments No Known Problems Father No Known Problems Mother Relation Status Comments Father Mother Social History Tobacco Use Types Packs/Day Years [...] on file Sexual Orientation Not on file Last Filed Vital Signs Vital Sign Reading Time Taken Comments Blood Pressure 110/70 07/23/2023 11:42 AM EST Pulse 69 07/23/2023 10:52 AM EST Temperature 36.4 C (97.5 F) 07/23/2023 10:52 AM EST Respiratory Rate 18 07/23/2023 11:42 AM EST Oxygen Saturation 96% 07/23/2023 11:42 AM EST Inhaled Oxygen Concentration - - Weight 87.5 kg (193 lb) 07/12/2023 3:28 PM EST Height 166 cm (5' 5.35 ) 07/12/2023 3:28 PM EST Body Mass Index 31.77 07/12/2023 3:28 PM EST Plan of Treatment Upcoming Encounters Date Type Department Care Team (Late st Contact Info) Description 10/19/2025 11:30 AM EDT Office Visit [facility] [address] [place] [address] [address] [place] [id number] Michael Gimenez DO [address] [place] [address] [email or web address] Health Maintenance Due Date Last Done Comments POTASSIUM LEVEL 1980 DEPRESSION SCREENING 1992 SMOKING Hx and SMOKELESS TOBACCO SCREENING 1993 HEPATITIS C SCREENING 1998 HIV ONE-TIME SCREENING (18-6 5 YEARS) 1998 PAP SMEAR 2001 SCREENING FOR DIABETES 2015 MAMMOGRAM 2020 Adult Td,Tdap Booster 03/12/2025 03/12/2015 INFLUENZA VACCINE (#1) 2025 COVID-19 VACCINE (2024-2 6 season) 2025 03/15/2021, 02/22/2021 HEPATITIS A VACCINES Aged Out No long er eligible based on patient's age to complete this topic HIB VACCINES Aged Out No longer eligi ble based on patient's age to complete this topic MENINGOCOCCAL VACCINES (ACWY) Aged Out No longer eligible based on patient's age to complete this topic MENINGOCOCCAL VACCINES (B) Aged Out N o longer eligible based on patient's age to complete this topic PNEUMOCOCCAL VACCINES (0-49 years) Aged Out No longer eligible b ased on patient's age to complete this topic Medical Devices Not on [place] [address] [place] [address] [facility] [facility] [place] [address] [place] [address] [facility] [facility] Care Teams Shank Boner Relationship Specialty Start Date End Date Tavia Hdz PA PCP - General Unknown Provider Specialty 01/28/21 Additional Source Comments The information contained in this document represents components of the legal health record. It is not the complete legal health record.[facility]
== END ==
LOC: HO.CARD 14:00
PROVIDERS: PCP Internal Medicine; Visit Provider Internal Medicine Cardiovascular Disease
DX: I50.20 Unspecified systolic (congestive) heart failure (principal)
CPT/HCPCS: 93306

== ENCOUNTER → 2025-07-28 14:07 | Outpatient (BNV) | payer OTHER, SELFPAY ==
[2024-04-25 18:19] VITALS: BP 98/52; BMI 31.7
== END ==
PROVIDERS: PCP Internal Medicine; Visit Provider Internal Medicine Cardiovascular Disease
DX: I51.7 Cardiomegaly (principal)
CPT/HCPCS: 93306

== ENCOUNTER 2025-07-30 14:06 | Outpatient (AMB) | payer OTHER, SELFPAY ==
[2024-04-25 18:19] VITALS: BP 98/52; BMI 31.7
--- NOTE | 2025-07-30 14:15 | A.OFFVIS_ITS ---
Vital Signs 07/30/25 14:16 Height 5 ft 4 in Weight 189 lb 9.561 oz BMI 32.5 BP 120/78 Blood Pressure Location Lt brachial Position Sitting Pulse 76 Intake Visit Reasons: 6 mth s/p echo w/ [facility] ck Intake Note: 6 month follow-up with ekg and [facility] check after echo feeling good Loss Prevention Detective Required: Yes Loss Prevention Detective Services: Loss Prevention Detective Present Loss Prevention Detective Name: serena Burns Allergies No Known Allergies Allergy (Verified 03/26/25 17:25) Medication List - Last Reconciled 07/30/25 by Payam Aviles MD carvedilol (Coreg) 25 mg PO BID empagliflozin (Jardiance) 10 mg PO DAILY furosemide 40 mg PO DAILY hydrocortisone 1% (Anti-Itch (hydrocortisone)) 1 appl topical TID PRN 2 weeks sacubitril-valsartan 24-26 mg (Entresto) 1 tab PO BID scopolamine base 1 patch transdermal Q3D PRN 7 days simethicone (Gas Relief (simethicone)) 250 mg (2 x 125 mg) PO BID PRN 90 days spironolactone 12.5 mg (1/2 x 25 mg) PO DAILY HPI Comments Details: Edin comes for follow-up. Overall she has been doing well. She says she had 3 or 4 episodes of shortness of breath while she was traveling to [place]. Otherwise she has been doing well. She says she takes Lasix total 3 tablets a day 2 in the morning and 1 at nighttime. She has not had major heart failure decompensated cessation. And while here since she has been back in 3 weeks she has been doing well. She denies any lightheadedness, syncope. Takes all her medications. Most recent echocardiogram shows severely dilated left ventricle with severely reduced LV ejection fraction at% which has marginally improved. She denies any palpitations, lightheadedness, syncope. Denies any ICD discharge. [facility] Medical History ICD (implantable cardioverter-defibrillator) in place Diarrhea GERD (gastroesophageal reflux disease) Heart failure with reduced ejection fraction Cardiomyopathy Acute systolic heart failure Dyspnea Tachycardia Goiter Thyroid nodule Fibromyalgia Obese Surgical History History of endometrial ablation Hx of tubal ligation S/P thyroid biopsy H/O abdominoplasty Family History Father No problems noted. Mother No problems noted. Social History Household Members: Family Housing: House Do you presently have visiting nurse or other home services: No Alcohol intake: former Patient Tobacco Use Status: Former Tobacco user e-Cigarette/Vaping Use: Never Used Second Hand Smoke Exposure: No service: No Current occupational status: employed Current occupational exposures/hazards: No Gender identity: Female Cognitive needs: No Hearing needs: No Vision needs: No Review of Systems Const Denies chills, Denies fatigue, Denies fever(s), Denies frequent falls, Denies weakness, Denies weight gain and Denies weight loss ENT Denies dizziness Card Denies chest pain, Denies leg edema, Denies lightheadedness, Denies palpitations, Denies dyspnea, Denies dyspnea on exertion, Denies orthopnea and Denies other (loss of consciousness) Resp Denies cough, Denies dyspnea and Denies dyspnea on exertion GI Denies hematochezia and Denies change in stool character Musc Denies abnormal gait, Denies muscle weakness, Denies numbness, Denies radiating pain into limb and Denies tingling Neuro Denies abnormal gait, Denies dizziness, Denies frequent falls, Denies numbness, Denies tingling and Denies weakness Endo Denies fatigue and Denies palpitations Physical Exam Vital Signs: Last Vital Signs Pulse 76 07/30/25 14:16 BP 120/78 07/30/25 14:16 BMI result Body Mass Index 32.5 Const General: cooperative, healthy appearing, comfortable and no acute distress Orientation/consciousness: patient oriented x3 Neck Neck: Yes normal visual inspection Resp Effort & Inspection: normal respiratory effort Auscultation: clear to auscultation bilaterally, no crackles, no rales, no rhonchi and no wheezes Cardio Jugular venous distension: no JVD Rate: regular rate Rhythm: regular rhythm Heart sounds: S1 normal heart sound present, S2 normal heart sound present, no murmurs and no rubs Neuro General: patient oriented x3 Extrem General: Yes normal to inspection Psych Appearance: grossly normal Mental Status: mental status grossly normal Speech and movement: Normal speech and movement present Office Procedures Cardiac Device Check Cardiac Device Check Details: Single-chamber [facility] ICD in place. Programmed in VVI at 40 beats per minute. No significant arrhythmias noted. Ventricular pacing thresholds excellent. Ventricular sensing is excellent. Pacing and shock lead impedance is stable. Battery life is at 7 years 42449-MZ Cardiac Device Check, single lead implantable defibrillator Procedure code (CPT) selection complete EKG Details: EKGs shows normal sinus rhythm with left axis deviation with poor R-wave progr ession most likely due to cardiomyopathy process 31129-[id number], Complete Assessment & Plan Assessment & Plan (1) Heart failure with reduced ejection fraction: Code(s): I50.20 - Unspecified systolic (congestive) heart failure Category: Medical Plan: Heart failure with reduced ejection fraction with persistent severe LV systolic dysfunction despite medical therapy with mild improvement in LV ejection fraction with clinically euvolemic and well compensated. She has not had any worsening symptoms on current medical therapy. She has tolerated this medical therapy well. She understands heart failure management well. We discussed about continuing neurohormonal modulation at current dose as we can not maximize due to lower blood pressure in the past. Continue current diuretic regimen. Advised to take her night Lasix more around noon time to avoid significant nocturia and improve sleep pattern. Management of heart failure were discussed. Advised to call me with worsening symptoms that may require further advanced heart failure management. She understands and agrees. Will obtain baseline blood work today (2) ICD (implantable cardioverter-defibrillator) in place: Comment: [facility] single-chamber ICD placed, 10/28/2021 for primary prevention Code(s): Z95.810 - Presence of automatic (implantable) cardiac defibrillator Category: Medical Plan: ICD in place for primary prevention. ICD is working well. Will continue monitor remotely for heart failure and device function. Will follow up in the clinic in 6 months time, sooner PRN. Thank you for allowing me to partake in her care Orders: Orders Basic Metabolic Panel Today I50.20 - Unspecified systolic (congestive) heart failure NT Pro B Type Natriuretic Pept Today I50.20 - Unspecified systolic (congestive) heart failure Medications: Changed From furosemide 40 mg PO DAILY 270 tabs 2RF I50.20 - Unspecified systolic (congestive) heart failure To furosemide Two tablets in the morning and 1 tablet at noon 40 mg PO DAILY 270 tabs 2RF I50.20 - Unspecified systolic (congestive) heart failure From furosemide Two tablets in the morning and 1 tablet at noon 40 mg PO DAILY 270 tabs 2RF I50.20 - Unspecified systolic (congestive) heart failure To furosemide Two tablets in the morning and 1 tablet at noon 120 mg (3 x 40 mg) PO DAILY 270 tabs 2RF I50.20 - Unspecified systolic (congestive) heart failure Coding Level of Care Code Est Pt Level 4 (71582) Diagnoses Heart failure with reduced ejection fraction I50.20 ICD (implantable cardioverter-defibrillator) in place Z95.810 CPT Codes Cardiac Device Check - Cardiac Device 4: 37031-WL Cardiac Device Check, single lead implantable defibrillator ([id number]) EKG - CPT: 29361-[id number], Complete ([id number])
[2025-07-30 14:16] VITALS: BP 120/78; PULSE 76; BMI 32.5
--- OUTSIDE RECORDS SUMMARY | 2025-07-30 18:20 | XMS_ITS | Clinical Summary ---
Author Organization [facility] Address [address] [place] [address] Care Team Providers Care Hand Former Helper Name Role Phone Radha Donahue MD Primary Care Provider [phone] Allergies No known active allergies Medications albuterol [...] Neck pain 03/12/2015 Thyroid nodule 03/12/2015 Immunizations Immunization Administration Dates Next Due Tdap Tetanus diptheria [...] on file Sexual Orientation Not on file Plan of Treatment Health Maintenance Due Date Last Done Comments Breast Cancer Screening 1980 Hepatitis B Vaccines (1 of 3 - 19+ 3-dose series) 1999 HPV Vaccines (1 - 3-dose SCD M series) 2007 Cervical Cancer Screening: P ap Smear 03/12/2018 03/12/2015 HIV Screening 08/12/2024 Hepatitis C Screening 08/12/2024 Social Influencers of Health Screening 08/12/2024 Depression Screening 08/13/2024 DTaP,Tdap,and Td Vaccines (2 - Td or Tdap) 03/12/2025 03/12/2015 COVID-19 Vaccine (1 - 2024-2 6 season) 2025 Influenza Vaccine (#1) 2025 RSV Immunization Adult Patie nts (1 - 1-dose 75+ series) 2055 HIB Vaccines Aged Out No longer eligi [...] Recently Relevant to Health Maintenance Results * Hm Pap Smear (03/12/2015) Pap smear Abstracted, No Interpretation us Historical Provider MD HEALTH MAINTENANCE Final Result from Last 3 Months or Most Recently Relevant to Health Maintenance Care Teams Hand Former Helper Relationship Specialty Start Date End Date Radha Donahue MD [address] [place] [address] PCP - General Internal Medicine 10/06/15
--- OUTSIDE RECORDS SUMMARY | 2025-07-30 18:20 | XMS_ITS | Clinical Summary ---
Author Organization [facility] Address [address] [facility] [address] [place] [address] Phone Care Team Providers Care Laboratory Specialist Name Role Phone Tavia Hdz Primary Care Provider [phone] Allergies Active Allergy Reactions Criticality Noted Date [...] She has been worked up by the construction controller at this moment. Unfortunately the next opening [...] be elevated when they were checked at [facility] in the past. The lab work was also repeated at [facility] but I do not have the report. I will repeat ultrasound of the thyroid gland at [facility]. I have scheduled the patient for repeat biopsy in April 13, 2021. She would like to have isthmusectomy. However she informs me that she has cardiac insufficiency. She states that her ejection fraction was 15%. Her construction controller is doing MRI of the chest. She [...] Description 10/19/2025 11:30 AM EDT Office Visit [facility] [address] [place] [address] [address] [place] [id number] Michael Gimenez DO [address] [place] [address] Health Maintenance Due Date Last Done Comments [...] topic Medical Devices Not on file [place] [address] [place] [address] [employer] [place] [address] [place] [address] [employer] Care Teams Laboratory Specialist Relationship Specialty Start Date End Date Tavia Hdz PA PCP - General Unknown Provider Specialty 01/28/21 Additional Source Comments The information contained in this document represents components of the legal health record. It is not the complete legal health record.[facility]
--- OUTSIDE RECORDS SUMMARY | 2025-07-30 18:20 | XMS_ITS | Encounter Summary ---
Author Organization [facility] Address [address] [facility] [address] [place] [address] Phone Care Team Providers Care Pickler Helper Name Role Phone Tavia Hdz Primary Care Provider [phone] Encounter Details Date Type Department Care Team (Late st Contact Info) Description 07/23/2023 Procedure Pass [facility] [address] [place] [address] Social History Tobacco Use Types Packs/Day Years [...] Description 10/19/2025 11:30 AM EDT Office Visit [facility] [address] [place] [address] Michael Gimenez DO [address] [place] [address] documented as of this encounter Visit Diagnoses Not on filedocumented in this encounter Care Teams Pickler Helper Relationship Specialty Start Date End Date Tavia Hdz PA PCP - General Unknown Provider Specialty 01/28/21 documented as of this encounter Additional Source Comments The information contained in this document represents components of the legal health record. It is not the complete legal health record.[facility]
== END 2025-07-30 14:42 | disposition home or self-care (01) ==
LOC: HO.HCS 14:07
PROVIDERS: PCP Internal Medicine; Visit Provider Internal Medicine Cardiovascular Disease
DX: I50.20 Unspecified systolic (congestive) heart failure (principal); Z95.810 Presence of automatic (implantable) cardiac defibrillator
CPT/HCPCS: 93010; 93282; 99214

== ENCOUNTER 2025-07-30 14:06 | Outpatient (REF) | payer OTHER, SELFPAY ==
[2024-04-25 18:19] VITALS: BP 98/52; BMI 31.7
[2025-07-30 16:32] LABS: Anion Gap 11 (12-20); Blood Urea Nitrogen 11 mg/dL (9-16); Calcium 9.3 mg/dL (8.4-10.2); Carbon Dioxide 29 mmol/L (22-29); Chloride 105 mmol/L (96-108); Estimated Glomerular Filt Rate 51; Potassium 3.8 mmol/L (3.3-5.1); Sodium 141 mmol/L (135-145)
[2025-07-30 16:37] LABS: NT Pro B Type Natriuretic Pept 282.4 pg/mL (<300)
== END 2025-07-30 14:07 | disposition home or self-care (01) ==
LOC: HO.LAB 14:06
PROVIDERS: PCP Internal Medicine; Visit Provider Internal Medicine Cardiovascular Disease
DX: I50.20 Unspecified systolic (congestive) heart failure (principal); Z95.810 Presence of automatic (implantable) cardiac defibrillator
CPT/HCPCS: 36415; 80048; 83880; 93005; 93282; 99212